=== PATIENT | female | born 1935 | race Caucasian/White ===

== ENCOUNTER 2018-08-30 12:53 | Inpatient (IN) ==
[2018-08-30] MEDS ORDERED: Ondansetron ODT 4 MG TAB.RAPDIS SL ONE (12:58)
--- NOTE | 2018-08-30 12:58 | Emergency Department Note ---
Disposition Clinical Impression: Pyelonephritis, Generalized weakness Disposition: Admitted As Inpatient Condition: Fair Referrals: NONE,PCP [Non-Partnered Physician] - Forms: ED Satisfaction Letter, Work/School Release Abdominal Pain HPI - General Chief Complaint: ED General Medical Stated Complaint: abd discomfort, flank pain Time Seen by Provider: 08/30/18 12:56 Source: patient, family, EMS Mode of arrival: EMS Limitations: age Nursing Notes Reviewed: Yes Vital Signs Reviewed: Yes - History of Present Illness HPI Narrative: Relates that she has been having some pain in her right lower back towards her right lower quadrant. Per family some of this started yesterday but has been worse today. She has had nausea with some decreased oral intake. She denies vomiting. She does report some urinary frequency and burning and was diagnosed as a UTI a week ago. Per family she has had some recurrent UTIs. She denies any diarrhea nor any bloody or black stools. She indicates she passes stool a day or 2 ago. She questions some occasional constipation. She has had some cough congestion without dyspnea. She states this has been going on for 2-3 d ays. She denies rash or joint pains. She has no known ill exposures. Family reported to EMS a temperature at home of 102. EMS did establish an IV and they transported her in for evaluation. Pt Subjective Complaint: abdominal pain, flank pain Onset (ago): day(s) (1) Consistency: constant Location: R flank Pain Severity: moderate Quality: cannot describe Radiation: RLQ Migration to: no migration Improves with: nothing Worsens with: nothing Context: recent antibiotic use Associated symptoms: Reports: nausea, fever, chills, constipation, dysuria. Denies: vomiting, diarrhea, hematemesis, hematochezia, melena, hematuria, anorexia, syncope - Related Data Home Medications Medication Instructions Recorded Confirmed Albuterol Neb [Proventil Neb] 2.5 mg IH PRN PRN 08/30/18 08/30/18 Albuterol Sulfate [Proair Hfa] 90 mcg IH BID 08/30/18 08/30/18 Alendronate Sodium 70 mg PO QWEEK 08/30/18 08/30/18 Amlodipine Besylate 5 mg PO DAILY 08/30/18 08/30/18 Armodafinil [Nuvigil] 250 mg PO BID 08/30/18 08/30/18 Aspirin [Lo-Dose Aspirin EC] 81 mg PO DAILY 08/30/18 08/30/18 Donepezil HCl [Aricept] 10 mg PO DAILY 08/30/18 08/30/18 FLUoxetine HCl [Sarafem] 30 mg PO DAILY 08/30/18 08/30/18 Famotidine [Heartburn Prevention] 20 mg PO DAILY 08/30/18 08/30/18 Ferrous Sulfate [Iron] 325 mg PO Q48H 08/30/18 08/30/18 Fluticasone/Salmeterol [Advair 1 each IH BID 08/30/18 08/30/18 500-50 Diskus] Gabapentin [Neurontin] 100 mg PO DAILY 08/30/18 08/30/18 Gemfibrozil [Lopid] 600 mg PO BIDWM 08/30/18 08/30/18 Lisinopril [Zestril] 40 mg PO DAILY 08/30/18 08/30/18 Ondansetron HCl [Zofran] 4 mg PO Q8HR PRN 08/30/18 08/30/18 Oxybutynin [Ditropan] 10 mg PO DAILY 08/30/18 08/30/18 Vit C/E/Zn/Coppr/Lutein/Zeaxan 1 each PO DAILY 08/30/18 08/30/18 [Preservision Areds 2 Softgel] Allergies Allergy/AdvReac Type Severity Reaction Status Date / Time methenamine [From Hiprex] Allergy Hives Verified 08/30/18 13:11 monosodium glutamate Allergy Anaphylaxis Verified 08/30/18 13:11 moxifloxacin [From Avelox] Allergy Anaphylaxis Verified 07/26/18 02:37 naproxen [From Naprosyn] Allergy Rash Verified 07/26/18 02:37 clarithromycin [From Biaxin] AdvReac Nausea Verified 07/26/18 02:37 pantoprazole [From Protonix] AdvReac Nausea Verified 07/26/18 02:37 All systems ED: reviewed and negative except as stated. Abdominal Pain PMH - Past Medical History Medical history: Reports: asthma, atrial fibrillation, cancer (Breasts today and renal), COPD, diabetes ([id number]), hypertension Female Surgical History: Reports: Adenoidectomy, cancer surgery (Breast and renal), cholecystectomy, hysterectomy, other (Nephrectomy) - Social History Smoking status: Never smoker Alcohol use: Reports: rarely Drug use: Reports: none Physical Exam - General Limitations: age General appearance: alert, in no apparent distress - Head Head exam: atraumatic, normocephalic, normal inspection - Eye Eye exam: Present: normal appearance, PERRL, EOMI. Absent: conjunctival injection - ENT ENT exam: normal exam, normal oropharynx, mucous membranes moist - Neck Neck exam: Present: normal inspection, full ROM, trachea midline - Chest Chest inspection: Present: normal inspection, symmetric chest wall rise - Respiratory Respiratory exam: Present: normal lung sounds bilaterally. Absent: respiratory distress, wheezes, prolonged expiratory phase - Cardiovascular Cardiovascular exam: Present: regular rate, normal rhythm, normal heart sounds - Abdominal Exam Abdominal exam: Present: soft, Non-Tender, normal bowel sounds, other (Patient reports some vague pain across the right lateral and lower abdomen.). Absent: tenderness, distention, guarding, rebound, rigidity, psoas sign, obturator sign, heel tap sign, Muro's sign, pulsatile mass, hernia - Extremities Exam Extremities exam: Present: normal inspection, full ROM, normal capillary refill. Absent: tenderness, pedal edema - Expanded Lower Extremity Exam Neurovascular/Tendon exam: Present: normal capillary refill Gait: not tested/not observed - Back Exam Back exam: Present: normal inspection, full ROM. Absent: tenderness - Neurological Exam Neurological exam: Present: alert. Absent: motor sensory deficit - Psychiatric Psychiatric exam: Present: normal affect, normal mood. Absent: agitated, anxious - Skin Skin exam: Present: warm, dry, intact, normal color. Absent: rash, diaphoresis, pallor Course Course Narrative: 1445: Care is discussed with the patient and family. She has a pyelonephritis with a singular kidney. She is mildly prerenal with a mildly elevated white count and generalized malaise. I feel be most appropriate to have her in for observation and continued hydration with IV antibiotics. She has been written to receive IV Rocephin. Care is discussed with Dr. Boss and verbal orders have been obtained for her admission. Vital Signs Temperature 100.9 F H 08/30/18 12:56 Pulse Rate 73 08/30/18 12:56 Respiratory Rate 17 08/30/18 12:56 Blood Pressure 161/54 08/30/18 12:56 O2 Sat by Pulse Oximetry 92 08/30/18 12:56 Temperature 100.9 F H 08/30/18 12:56 Pulse Rate 82 08/30/18 14:33 Respiratory Rate 18 08/30/18 14:33 Blood Pressure 155/73 08/30/18 14:33 O2 Sat by Pulse Oximetry 90 08/30/18 14:33 Oxygen Delivery Oxygen Delivery Room Air Abdominal Pain - Differential Diagnosis Differential Diagnosis: Likely: abdominal pain non-specific, acute appendicitis, calculus of kidney, constipation, diverticulitis, small bowel obstruction, other (Pyelonephritis) - Medical Records Medical records reviewed: Yes I reviewed the patient's medical records. Patient was seen at [facility] emergency department on 07/26/2018. This was for generalized weakness. She had a urinary tract infection with Escherichia coli and was treated successfully with Keflex. - Lab Data Lab results reviewed: Yes I reviewed the patient's lab results. Result diagrams: 08/30/18 13:41 08/30/18 13:41 Lab Results 08/30/18 08/30/18 08/30/18 Range/Units 13:41 13:41 13:41 WBC 13.6 H (4.3-11.1) K/mcL RBC 3.61 L (3.82-4.97) M/mcL Hgb 10.7 L (11.5-15.4) g/dL Hct 33.8 L (35.3-44.9) % MCV 93.6 (83.0-100.0) fL MCH 29.6 (28.0-33.3) pg MCHC 31.7 (31.6-35.5) g/dL RDW 16.2 H (11.5-14.5) % Plt Count 233 (140-400) K/mcL MPV 10.0 (9.4-12.4) fL Immature Gran % 0.6 (0-4) % Seg Neutrophils % 92.4 % Lymphocytes % 3.6 % Monocytes % 3.2 % Eosinophils % 0.0 % Basophils % 0.2 % Neutrophils # 12.6 H (1.6-8.9) K/mcL Lymphocytes # 0.5 L (0.6-4.6) K/mcL Monocytes # 0.4 (0.0-1.3) K/mcL Eosinophils # 0.0 (0.0-0.6) K/mcL Basophils # 0.0 (0.0-0.2) K/mcL Sodium 138 (136-145) mEq/L Potassium 4.4 (3.5-5.1) mEq/L Chloride 102 (98-107) mEq/L Carbon Dioxide 28 (23-29) mEq/L BUN 26 H (8-23) mg/dL Creatinine 0.96 (0.60-1.20) mg/dL Est GFR ( Amer) > 60 (> 60) Est GFR (Non-Af Amer) 55 L (> 60) BUN/Creatinine Ratio 27 H (6-26) Glucose 102 (70-105) mg/dL Calculated Osmolality 291 (280-300) Lactic Acid 1.1 (0.5-2.2) mmol/L Calcium 9.1 (8.6-10.3) mg/dL Urine Color (Yellow) Urine Clarity (Clear) Urine pH (5.0-8.0) pH Units Ur Specific [place] (1.010-1.025) Urine Protein (Neg-Trace) mg/dL Urine Glucose (UA) (Normal) mg/dL Urine Ketones (Negative) mg/dL Urine Blood (Negative) Urine Nitrite (Negative) Urine Bilirubin (Negative) Urine Urobilinogen (Normal) mg/dL Ur Leukocyte Esterase (Negative) Urine Microscopic RBC (0-3) per hpf Urine Microscopic WBC (0-3) per hpf Ur Squamous Epith Cells (None-Few) per lpf Urine Bacteria (None-Few) per hpf Ur Culture Indicated? (NO) 08/30/18 Range/Units 14:29 WBC (4.3-11.1) K/mcL RBC (3.82-4.97) M/mcL Hgb (11.5-15.4) g/dL Hct (35.3-44.9) % MCV (83.0-100.0) fL MCH (28.0-33.3) pg MCHC (31.6-35.5) g/dL RDW (11.5-14.5) % Plt Count (140-400) K/mcL MPV (9.4-12.4) fL Immature Gran % (0-4) % Seg Neutrophils % % Lymphocytes % % Monocytes % % Eosinophils % % Basophils % % Neutrophils # (1.6-8.9) K/mcL Lymphocytes # (0.6-4.6) K/mcL Monocytes # (0.0-1.3) K/mcL Eosinophils # (0.0-0.6) K/mcL Basophils # (0.0-0.2) K/mcL Sodium (136-145) mEq/L Potassium (3.5-5.1) mEq/L Chloride (98-107) mEq/L Carbon Dioxide (23-29) mEq/L BUN (8-23) mg/dL Creatinine (0.60-1.20) mg/dL Est GFR ( Amer) (> 60) Est GFR (Non-Af Amer) (> 60) BUN/Creatinine Ratio (6-26) Glucose (70-105) mg/dL Calculated Osmolality (280-300) Lactic Acid (0.5-2.2) mmol/L Calcium (8.6-10.3) mg/dL Urine Color Yellow (Yellow) Urine Clarity Cloudy A (Clear) Urine pH 6.0 (5.0-8.0) pH Units Ur Specific [place] 1.015 (1.010-1.025) Urine Protein 100 H (Neg-Trace) mg/dL Urine Glucose (UA) Normal (Normal) mg/dL Urine Ketones Negative (Negative) mg/dL Urine Blood Large H (Negative) Urine Nitrite Positive A (Negative) Urine Bilirubin Negative (Negative) Urine Urobilinogen Normal (Normal) mg/dL Ur Leukocyte Esterase Small H (Negative) Urine Microscopic RBC TNTC H (0-3) per hpf Urine Microscopic WBC 30-50 H (0-3) per hpf Ur Squamous Epith Cells None Seen (None-Few) per lpf Urine Bacteria Many H (None-Few) per hpf Ur Culture Indicated? YES A (NO) - Radiology Data Radiology results reviewed: Yes I reviewed the patient's radiology results. Single view chest x-ray is performed. This does not demonstrate evidence for infiltrate, effusion, pneumothorax, foreign body or heart failure. Patient has some diffuse increased interstitial markings suggestive of pulmonary fibrosis. The cardiac silhouette is mildly enlarged. I do not see abnormality to the oss eous structures of the chest. This is on my interpretation. CT is performed of the abdomen and pelvis without IV or oral contrast. This demonstrates the basal lungs to have a little atelectasis in the left base. The liver, spleen and pancreas appear normal. Left kidney is surgically absent. The right demonstrate some perinephric stranding for which a pyelonephritis is a concern. I do not see evidence for ureteral obstruction or stone. The bowel is without inflammatory change, obstruction or perforation. The aorta is normal in caliber. No other acute abnormality is seen. This is on my interpretation. Impressions Abdomen/Pelvis CT 08/30/18 12:57 IMPRESSION: Mild right hydronephrosis and hydroureter with mild right perinephric edema. No obstructive calculi identified. This may be due to recently passed ureteral calculus. Status post cholecystectomy, left nephrectomy, hysterectomy. Colonic diverticulosis without acute inflammatory changes. Small hiatal hernia. D/ / 08/30/2018 14:09:13 Phi Velazquez MD / yana Interpreting Provider: Phi Velazquez MD Chest X-Ray 08/30/18 12:57 IMPRESSION: Mild patchy opacities in the lungs, new from the prior study and possibly representing atelectasis or pneumonia. D/ / Cedric Strong MD / Cedric Strong MD Interpreting Provider: Cedric Strong MD
[2018-08-30] MEDS ORDERED: 0.9 % Sodium Chloride 1,000 ML IVC SCH ×2 (13:00→15:11)
[2018-08-30 13:48] LABS: Basophils % 0.2 %; Hematocrit 33.8 % (35.3-44.9); Hemoglobin 10.7 g/dL (11.5-15.4); Immature Granulocytes % 0.6 % (0-4); Lymphocytes # 0.5 K/mcL (0.6-4.6); Lymphocytes % 3.6 %; Mean Corpuscular HGB Conc 31.7 g/dL (31.6-35.5); Mean Corpuscular Hemoglobin 29.6 pg (28.0-33.3); Mean Corpuscular Volume 93.6 fL (83.0-100.0); Monocytes # 0.4 K/mcL (0.0-1.3); Monocytes % 3.2 %; Neutrophils # 12.6 K/mcL (1.6-8.9); Platelet Count 233 K/mcL (140-400); Red Blood Count 3.61 M/mcL (3.82-4.97); Red Cell Distribution Width 16.2 % (11.5-14.5); Segmented Neutrophils % 92.4 %
[2018-08-30 14:07] LABS: BUN/Creatinine Ratio 27 (6-26); Blood Urea Nitrogen 26 mg/dL (8-23); Calcium 9.1 mg/dL (8.6-10.3); Carbon Dioxide 28 mEq/L (23-29); Chloride 102 mEq/L (98-107); Glucose 102 mg/dL (70-105); Osmolality,Calculated 291 (280-300); Potassium 4.4 mEq/L (3.5-5.1); Sodium 138 mEq/L (136-145); eGFR For Non-African Americans 55 (> 60)
[2018-08-30 14:36] LABS: Bilirubin,Urine Negative (Negative); Blood,Urine Large (Negative); Clarity,Urine Cloudy (Clear); Color,Urine Yellow (Yellow); Glucose,Urine (UA) Normal (Normal); Ketones,Urine Negative (Negative); Leukocyte Esterase,Urine Small (Negative); Nitrite,Urine Positive (Negative); Protein,Urine 100 mg/dL (Neg-Trace); Specific Gravity,Urine 1.015 (1.010-1.025); Urobilinogen,Urine Normal (Normal)
[2018-08-30 14:43] LABS: Bacteria,Urine Many per hpf (None-Few); RBC,Urine TNTC per hpf (0-3); Squamous Epithelial Cell,Urine None Seen per lpf (None-Few); WBC,Urine 30-50 per hpf (0-3)
[2018-08-30] MEDS ORDERED: cefTRIAXone 2,000 MG in 0.9 % Sodium Chloride Mini Bag 100 ML IVPB ONE ×3 (14:44→16:00)
[2018-08-30] MEDS ORDERED: cefTRIAXone 2,000 MG in Water for inj. (sterile) 20 ML 20 ML IVPB SCH (15:00)
[2018-08-30] MEDS ORDERED: Albuterol 2.5 MG/3 ML NEBULIZER IH PRN (15:11)
[2018-08-30] MEDS ORDERED: Naloxone 0.4 MG/ML INJ IVP PRN (15:11)
--- NOTE | 2018-08-30 18:51 | Internal Med History&Physical ---
Date of Encounter: 08/30/18 Time of Encounter: 18:20 Assessment and Plan (1) Pyelonephritis Current visit: Yes Status: Acute She was given Rocephin in emergency room. 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 (2) Pneumonia Current visit: Yes Status: Acute She will receive IV Zosyn and doxycycline with lactobacillus. Qualifiers: Pneumonia type: due to unspecified organism Laterality: bilateral Lung location: unspecified part of lung Qualified Code(s): J18.9 - Pneumonia, unspecified organism (3) Hypertension Current visit: Yes Status: Chronic Continue lisinopril and Norvasc. Qualifiers: Hypertension type: essential hypertension Qualified Code(s): I10 - Essential (primary) hypertension (4) Anemia Current visit: Yes Status: Acute Anemia testing will be done in a.m. Qualifiers: Anemia type: unspecified type Qualified Code(s): D64.9 - Anemia, unspecified (5) DM type 2 (diabetes mellitus, type 2) Current visit: Yes Status: Acute Will check hemoglobin A1c in a.m. Qualifiers: Diabetes mellitus residential insulin use: without residential use Diabetes mellitus complication status: without complication Qualified Code(s): E11.9 - Type 2 diabetes mellitus without complications Internal Medicine - H&P: HPI Chief complaint: Fever and lethargy Admitted From: Emergency Dept Plans for Post Hospital Care: Home History of present illness: Ms. Hamilton is a 82 year old female came to emergency room after family reported fever 102 F at home with lethargy. She had no vomiting or diarrhea. There was no significant cough. She was evaluated in emergency room and was felt to have acute pyelonephritis. Chest x-ray showed possible bilateral pneumonia. She was admitted to [facility] floor for ongoing care needs. She is lethargic but awakens and answers a few questions. Most of the history is obtained from her daughter. Her history s significant for left nephrectomy 2007 for renal cell cancer. The nephrectomy was presumably curative. She has had numerous urinary tract infections but no documented kidney stones. She has OAB and is on Ditropan. Past Med Surg Social Fam HX - Past Medical History Medical history: asthma, atrial fibrillation, cancer, COPD, diabetes, hypertension Additional medical history: Frequent UTI. macular degeneration. osteopenia Psychiatric history: anxiety, depression - Past Surgical History Additional surgical history: nephrectomy left side. mastectomy. britany cystectomy - Social History Smoking Status: Never smoker Smokeless Tobacco Status: No Alcohol use: rarely Drug use: none Internal Medicine - H&P: Meds Albuterol Neb [Proventil Neb] 2.5 mg IH PRN PRN 08/30/18 [History] Albuterol Sulfate [Proair Hfa] 90 mcg IH BID 08/30/18 [History] Alendronate Sodium 70 mg PO QWEEK 08/30/18 [History] Amlodipine Besylate 5 mg PO DAILY 08/30/18 [History] Armodafinil [Nuvigil] 250 mg PO BID 08/30/18 [History] Aspirin [Lo-Dose Aspirin EC] 81 mg PO DAILY 08/30/18 [History] Donepezil HCl [Aricept] 10 mg PO DAILY 08/30/18 [History] FLUoxetine HCl [Sarafem] 30 mg PO DAILY 08/30/18 [History] Famotidine [Heartburn Prevention] 20 mg PO DAILY 08/30/18 [History] Ferrous Sulfate [Iron] 325 mg PO Q48H 08/30/18 [History] Fluticasone/Salmeterol [Advair 500-50 Diskus] 1 each IH BID 08/30/18 [History] Gabapentin [Neurontin] 100 mg PO DAILY 08/30/18 [History] Gemfibrozil [Lopid] 600 mg PO BIDWM 08/30/18 [History] Lisinopril [Zestril] 40 mg PO DAILY 08/30/18 [History] Ondansetron HCl [Zofran] 4 mg PO Q8HR PRN 08/30/18 [History] Oxybutynin [Ditropan] 10 mg PO DAILY 08/30/18 [History] Vit C/E/Zn/Coppr/Lutein/Zeaxan [Preservision Areds 2 Softgel] 1 each PO DAILY 08/30/18 [History] Allergy/AdvReac Type Severity Reaction Status Date / Time methenamine [From Hiprex] Allergy Hives Verified 08/30/18 13:11 monosodium glutamate Allergy Anaphylaxis Verified 08/30/18 13:11 moxifloxacin [From Avelox] Allergy Anaphylaxis Verified 07/26/18 02:37 naproxen [From Naprosyn] Allergy Rash Verified 07/26/18 02:37 clarithromycin [From Biaxin] AdvReac Nausea Verified 07/26/18 02:37 pantoprazole [From Protonix] AdvReac Nausea Verified 07/26/18 02:37 All Systems PM: A 10-system review of systems was performed and is negative for pertinent findings except as documented above in the HPI. Review of systems: Gen.: Her weight has decreased approximately 10 pounds in the past 6 months Cardiovascular: She has history of hypertension and paroxysmal atrial fibrillation. There is no history of CO or heart failure. Her daughter thinks she had a remote DVT but no known pulmonary embolus. Respiratory: She smoked from approximately age [age] up to 2 packs per day. She has a diagnosis of COPD but does not use home oxygen. She has been diagnosed with LUCILLE but does not use CPAP/BiPAP GI: She has no known disorders of liver gallbladder or exocrine pancreas : As per history of present illness Neurologic: She has narcolepsy and dementia. No history of large distribution strokes or seizures. Endocrine: She was diagnosed with DM 2 approximately 1999. She has hyperlipidemia but no known thyroid disease Hematology/oncology: She had renal cell cancer as per history of present illness. She had left breast cancer with lumpectomy followed by XRT in 2007 and is presumed cancer free. She denies known internal malignancies otherwise. She was unaware there was anemia on labs in emergency room. She has been prescribed ferrous sulfate in the past. Psychiatric: She has depression but no significant anxiety other mental health issues [place] skeletal: She has DJD and osteoporosis. She had a toe amputation. She has had left wrist fracture and pelvic fracture remotely. - Constitutional Vitals: Temp Pulse Resp BP Pulse Ox 101.2 F H 96 18 132/62 92 08/30/18 16:17 08/30/18 16:17 08/30/18 16:17 08/30/18 16:17 08/30/18 16:17 Exam: Gen.: She is a well-developed well-nourished female lying in bed who appears in no significant distress HEENT: Head is atraumatic and normal cephalic. Eyes: EOMI. There is no scleral icterus. Mouth: Mucosa is moist. Neck: Supple and nontender. There is no thyromegaly or adenopathy noted. Heart: Regular without murmurs gallops or ectopics Lungs: No wheezes or crackles are heard. Abdomen: Soft and nontender. No masses or guarding are noted. Extremities: There is no cyanosis edema or clubbing noted. Dorsalis pedis and posttibial pulses are trace palpable bilaterally. She has DJD changes of her hands. Neurologic: Mental status: She is lethargic and fell asleep numerous times during the examination. She answers questions appropriately upon awakening. Cranial nerves: Smile is symmetric. Forehead wrinkles bilaterally. Tongue protrudes midline. EOMI. Motor: There is no pronator drift. Cerebellar: Finger to nose is intact bilaterally. Skin: Warm and dry Internal Med - H&P Results - Labs CBC & Chem 7: 08/30/18 13:41 08/30/18 13:41 Labs: Short CBC 08/30/18 Range/Units 13:41 WBC 13.6 H (4.3-11.1) K/mcL Hgb 10.7 L (11.5-15.4) g/dL Hct 33.8 L (35.3-44.9) % Plt Count 233 (140-400) K/mcL Neutrophils # 12.6 H (1.6-8.9) K/mcL BMP 08/30/18 13:41 Sodium 138 Potassium 4.4 Chloride 102 Carbon Dioxide 28 BUN 26 H Creatinine 0.96 Glucose 102 Calcium 9.1 Urine 08/30/18 Range/Units 14:29 Urine Color Yellow (Yellow) Urine Clarity Cloudy A (Clear) Urine pH 6.0 (5.0-8.0) pH Units Ur Specific [place] 1.015 (1.010-1.025) Urine Protein 100 H (Neg-Trace) mg/dL Urine Glucose (UA) Normal (Normal) mg/dL - Impressions ITS Impressions Abdomen/Pelvis CT 08/30/18 12:57 IMPRESSION: Mild right hydronephrosis and hydroureter with mild right perinephric edema. No obstructive calculi identified. This may be due to recently passed ureteral calculus. Status post cholecystectomy, left nephrectomy, hysterectomy. Colonic diverticulosis without acute inflammatory changes. Small hiatal hernia. D/ / 08/30/2018 14:09:13 Phi Velazquez MD / jorge castro Interpreting Provider: Phi Velazquez MD Chest X-Ray 08/30/18 12:57 IMPRESSION: Mild patchy opacities in the lungs, new from the prior study and possibly representing atelectasis or pneumonia. D/ / Cedric Strong MD / Cedric Strong MD Interpreting Provider: Cedric Strong MD
[2018-08-30] MEDS: Doxycycline 100 MG in 0.9 % Sodium Chloride Mini Bag 100 ML IVPB SCH (20:37)
[2018-08-30] MEDS: Lactobacillus 1 EACH CAP.SPRINK PO SCH (20:37)
[2018-08-30] MEDS: NUVIGIL 250 MG PO SCH (20:51)
[2018-08-30] MEDS: Piperacillin/Tazobactam 3.375 GM in 0.9 % Sodium Chloride Mini Bag 100 ML IVPB SCH (23:55)
[2018-08-31 04:31] LABS: Basophils % 0.2 %; Eosinophils % 0.1 %; Hematocrit 29.7 % (35.3-44.9); Hemoglobin 9.3 g/dL (11.5-15.4); Immature Granulocytes % 0.6 % (0-4); Lymphocytes # 0.9 K/mcL (0.6-4.6); Lymphocytes % 7.5 %; Mean Corpuscular HGB Conc 31.3 g/dL (31.6-35.5); Mean Corpuscular Hemoglobin 29.3 pg (28.0-33.3); Mean Corpuscular Volume 93.7 fL (83.0-100.0); Mean Platelet Volume 10.7 fL (9.4-12.4); Monocytes # 0.7 K/mcL (0.0-1.3); Monocytes % 5.7 %; Neutrophils # 10.3 K/mcL (1.6-8.9); Platelet Count 189 K/mcL (140-400); Red Blood Count 3.17 M/mcL (3.82-4.97); Red Cell Distribution Width 16.4 % (11.5-14.5); Segmented Neutrophils % 85.9 %
[2018-08-31 04:51] LABS: Alanine Aminotransferase 5 Units/L (7-52); Albumin 2.9 g/dL (3.5-5.7); Albumin/Globulin Ratio 0.9 (1.1-2.2); Alkaline Phosphatase 101 Units/L (34-104); Aspartate Amino Transferase 18 Units/L (13-39); BUN/Creatinine Ratio 27 (6-26); Bilirubin,Total 0.3 mg/dL (0.3-1.0); Blood Urea Nitrogen 31 mg/dL (8-23); Calcium 8.4 mg/dL (8.6-10.3); Carbon Dioxide 25 mEq/L (23-29); Chloride 103 mEq/L (98-107); Globulin 3.3 g/dL (2.4-3.5); Glucose 107 mg/dL (70-105); Osmolality,Calculated 293 (280-300); Potassium 3.6 mEq/L (3.5-5.1); Sodium 138 mEq/L (136-145); Total Protein 6.2 g/dL (6.4-8.9); eGFR For Non-African Americans 45 (> 60)
[2018-08-31 05:02] LABS: Thyroid Stimulating Hormone 0.017 mcIU/mL (0.340-5.600)
[2018-08-31] MEDS: Doxycycline 100 MG in 0.9 % Sodium Chloride Mini Bag 100 ML IVPB SCH ×2 (06:19→21:25)
[2018-08-31] MEDS: Piperacillin/Tazobactam 3.375 GM in 0.9 % Sodium Chloride Mini Bag 100 ML IVPB SCH ×2 (08:05→16:31)
[2018-08-31] MEDS: Aspirin Enteric Coated 81 MG Tablet PO SCH (08:09)
[2018-08-31] MEDS: amLODIPine 5 MG TABLET PO SCH (08:09)
[2018-08-31] MEDS: Lisinopril 20 MG TABLET PO SCH (08:10)
[2018-08-31] MEDS: Famotidine 20 MG TABLET PO SCH (08:10)
[2018-08-31] MEDS: FLUoxetine HCl 10 MG CAPSULE PO SCH (08:10)
[2018-08-31] MEDS: Gabapentin 100 MG CAPSULE PO SCH (08:10)
[2018-08-31] MEDS: Lactobacillus 1 EACH CAP.SPRINK PO SCH ×2 (08:10→21:24)
[2018-08-31] MEDS: NUVIGIL 250 MG PO SCH (08:11)
[2018-08-31 09:00] LABS: Estimated Average Glucose 114 mg/dl; Hemoglobin A1C 5.6 %
[2018-08-31 09:18] LABS: Iron < 10 mcg/dL (50-170); Transferrin 167 mg/dL (203-362)
[2018-08-31] MEDS: Ondansetron ODT 4 MG TAB.RAPDIS PO PRN (09:21)
[2018-08-31 09:29] LABS: Folate 16.4 ng/mL (3.0-16.0)
[2018-08-31 09:34] LABS: Ferritin 193 ng/mL (10-120)
[2018-08-31] MEDS ORDERED: NUVIGIL 250 MG PO SCH (10:45)
--- NOTE | 2018-08-31 12:54 | Internal Med Progress Note ---
Date of Encounter: 08/31/18 Time of Encounter: 12:45 - Assessment and plan (1) Pyelonephritis Current Visit: Yes Status: Acute Assessment and plan: August 31. Continue Zosyn and doxycycline with lactobacillus. Urine culture report pending. (2) Pneumonia Current Visit: Yes Status: Acute Assessment and plan: August 31. Continue Zosyn and doxycycline with lactobacillus. Qualifiers: Pneumonia type: due to unspecified organism Laterality: bilateral Lung lo cation: unspecified part of lung Qualified Code(s): J18.9 - Pneumonia, unspecified organism (3) Hypertension Current Visit: Yes Status: Chronic Assessment and plan: August 31. Continue lisinopril and Norvasc Qualifiers: Hypertension type: essential hypertension Qualified Code(s): I10 - Essential (primary) hypertension (4) Anemia Current Visit: Yes Status: Acute Assessment and plan: August 31. Anemia testing showed iron < 10, transferrin 167, ferritin 193, B12 200, and folate 16.4. She will start ferrous sulfate with ascorbic acid in a.m. She will receive a B12 injection today. Qualifiers: Anemia type: unspecified type Qualified Code(s): D64.9 - Anemia, unspecified (5) DM type 2 (diabetes mellitus, type 2) Current Visit: Yes Status: Acute Assessment and plan: August 31. Hemoglobin A1c was satisfactory at 5.6%. Qualifiers: Diabetes mellitus terminal superintendent insulin use: without detention use Diabetes mellitus complication status: without complication Qualified Code(s): E11.9 - Type 2 diabetes mellitus without complications (6) Low TSH level Current Visit: Yes Status: Acute Assessment and plan: August 31. TSH was suppressed at 0.017. Check T4 and T3 in a.m. and recheck TSH. (7) Lung nodules Current Visit: Yes Status: Acute Assessment and plan: August 31. Chest CT showed multiple noncalcified subcentimeter nodules bilaterally with precarinal adenopathy. I told her it would be reasonable to have a repeat chest CT in a few weeks to see if nodules have resolved or if further workup should be done. - Subjective Interval history: August 31. She has no new complaints. - Constitutional Vitals: Temp Pulse Resp BP Pulse Ox 97.9 F 76 16 122/64 94 08/31/18 11:18 08/31/18 11:18 08/31/18 11:18 08/31/18 11:18 08/31/18 11:18 Exam: She is resting comfortably in bed. She is more awake and alert today. I reviewed her medications, lab results, and CT report. Internal Medicine: Result - Labs CBC & Chem 7: 08/31/18 03:58 08/31/18 03:58 Labs: Short CBC 08/30/18 08/31/18 Range/Units 13:41 03:58 WBC 13.6 H 12.0 H (4.3-11.1) K/mcL Hgb 10.7 L 9.3 L (11.5-15.4) g/dL Hct 33.8 L 29.7 L (35.3-44.9) % Plt Count 233 189 (140-400) K/mcL Neutrophils # 12.6 H 10.3 H (1.6-8.9) K/mcL BMP 08/30/18 08/31/18 13:41 03:58 Sodium 138 138 Potassium 4.4 3.6 Chloride 102 103 Carbon Dioxide 28 25 BUN 26 H 31 H Creatinine 0.96 1.14 Glucose 102 107 H Calcium 9.1 8.4 L Liver Function 08/31/18 Range/Units 03:58 Total Bilirubin 0.3 (0.3-1.0) mg/dL AST 18 (13-39) Units/L ALT 5 L (7-52) Units/L Alkaline Phosphatase 101 (34-104) Units/L Albumin 2.9 L (3.5-5.7) g/dL Urine 08/30/18 Range/Units 14:29 Urine Color Yellow (Yellow) Urine Clarity Cloudy A (Clear) Urine pH 6.0 (5.0-8.0) pH Units Ur Specific [place] 1.015 (1.010-1.025) Urine Protein 100 H (Neg-Trace) mg/dL Urine Glucose (UA) Normal (Normal) mg/dL - Impressions Impressions Abdomen/Pelvis CT 08/30/18 12:57 IMPRESSION: Mild right hydronephrosis and hydroureter with mild right perinephric edema. No obstructive calculi identified. This may be due to recently passed ureteral calculus. Status post cholecystectomy, left nephrectomy, hysterectomy. Colonic diverticulosis without acute inflammatory changes. Small hiatal hernia. D/ / 08/30/2018 14:09:13 Phi Velazquez MD / yana Interpreting Provider: Phi Velazquez MD Chest X-Ray 08/30/18 12:57 IMPRESSION: Mild patchy opacities in the lungs, new from the prior study and possibly representing atelectasis or pneumonia. D/ / Cedric Strong MD / Cedric Strong MD Interpreting Provider: Cedric Strong MD Chest CT 08/30/18 18:46 IMPRESSION: Multiple noncalcified subcentimeter pulmonary nodules are seen bilaterally. Precarinal adenopathy is also seen. Leading differential considerations include infectious/inflammatory nodules, noncalcified granulomas, or developing metastatic disease. Trace right pleural effusion. Atherosclerosis, including coronary artery calcification. D/ / El Ruby MD / El Ruby MD Interpreting Provider: El Ruby MD Consult Discharge Plan - Plan Referrals: Melva De Souza MD [Primary Care Provider] - 1 week
[2018-08-31] MEDS ORDERED: Cyanocobalamin (B-12) 1,000 MCG/ML VIAL IM ONE (12:57)
[2018-08-31] MEDS ORDERED: cefTRIAXone 2,000 MG in Water for inj. (sterile) 20 ML 20 ML IVPB SCH (15:00)
[2018-09-01] MEDS: Piperacillin/Tazobactam 3.375 GM in 0.9 % Sodium Chloride Mini Bag 100 ML IVPB SCH ×3 (01:04→18:26)
[2018-09-01 05:37] LABS: Basophils % 0.2 %; Eosinophils % 0.2 %; Hematocrit 25.4 % (35.3-44.9); Hemoglobin 8.2 g/dL (11.5-15.4); Immature Granulocytes % 0.4 % (0-4); Lymphocytes # 0.8 K/mcL (0.6-4.6); Lymphocytes % 10.3 %; Mean Corpuscular HGB Conc 32.3 g/dL (31.6-35.5); Mean Corpuscular Hemoglobin 29.8 pg (28.0-33.3); Mean Corpuscular Volume 92.4 fL (83.0-100.0); Mean Platelet Volume 10.7 fL (9.4-12.4); Monocytes # 0.4 K/mcL (0.0-1.3); Monocytes % 4.9 %; Neutrophils # 6.7 K/mcL (1.6-8.9); Platelet Count 141 K/mcL (140-400); Red Blood Count 2.75 M/mcL (3.82-4.97); Red Cell Distribution Width 16.4 % (11.5-14.5)
[2018-09-01 06:03] LABS: Calcium 8.4 mg/dL (8.6-10.3); Potassium 3.3 mEq/L (3.5-5.1)
[2018-09-01] MEDS: Ascorbic Acid 500 MG TABLET PO SCH (06:04)
[2018-09-01] MEDS: Doxycycline 100 MG in 0.9 % Sodium Chloride Mini Bag 100 ML IVPB SCH (06:05)
[2018-09-01 06:16] LABS: Thyroid Stimulating Hormone 0.027 mcIU/mL (0.340-5.600)
[2018-09-01] MEDS: NUVIGIL 250 MG PO SCH (08:27)
[2018-09-01] MEDS: Ondansetron ODT 4 MG TAB.RAPDIS PO PRN (08:27)
[2018-09-01] MEDS: Lisinopril 20 MG TABLET PO SCH (08:28)
[2018-09-01] MEDS: FLUoxetine HCl 10 MG CAPSULE PO SCH (08:28)
[2018-09-01] MEDS: amLODIPine 5 MG TABLET PO SCH (08:28)
[2018-09-01] MEDS: Gabapentin 100 MG CAPSULE PO SCH (08:28)
[2018-09-01] MEDS: Lactobacillus 1 EACH CAP.SPRINK PO SCH ×2 (08:28→20:25)
[2018-09-01] MEDS: Famotidine 20 MG TABLET PO SCH (08:28)
[2018-09-01] MEDS: Aspirin Enteric Coated 81 MG Tablet PO SCH (08:28)
[2018-09-01 09:06] LABS: Triiodothyronine (T3) Free 2.61 pg/mL (2.50-3.90)
--- NOTE | 2018-09-01 11:02 | Internal Med Progress Note ---
Date of Encounter: 09/01/18 Time of Encounter: 10:25 - Assessment and plan (1) Pyelonephritis Current Visit: Yes Status: Acute Assessment and plan: August 31. Continue Zosyn and doxycycline with lactobacillus. Urine culture report pending. September 01. Urine culture preliminary report shows gram-negative rods. Continue Zosyn with lactobacillus but discontinue doxycycline. (2) Pneumonia Current Visit: Yes Status: Acute Assessment and plan: August 31. Continue Zosyn and doxycycline with lactobacillus. September 01. No obvious infiltrate seen on chest CT. Multiple pulmonary nodules of uncertain etiology were identified. Continue Zosyn with lactobacillus for UTI. Qualifiers: Pneumonia type: due to unspecified organism Laterality: bilateral Lung location: unspecified part of lung Qualified Code(s): J18.9 - Pneumonia, unspecified organism (3) Hypertension Current Visit: Yes Status: Chronic Assessment and plan: August 31. Continue lisinopril and Norvasc September 01. Azotemia worsening. Discontinue lisinopril. Continue Norvasc and monitor blood pressure. Qualifiers: Hypertension type: essential hypertension Qualified Code(s): I10 - Esse ntial (primary) hypertension (4) Anemia Current Visit: Yes Status: Acute Assessment and plan: August 31. Anemia testing showed iron < 10, transferrin 167, ferritin 193, B12 200, and folate 16.4. She will start ferrous sulfate with ascorbic acid in a.m. She will receive a B12 injection today. Qualifiers: Anemia type: unspecified type Qualified Code(s): D64.9 - Anemia, unspecified (5) DM type 2 (diabetes mellitus, type 2) Current Visit: Yes Status: Acute Assessment and plan: August 31. Hemoglobin A1c was satisfactory at 5.6%. Qualifiers: Diabetes mellitus intermediate insulin use: without intermediate use Diabetes mellitus complication status: without complication Qualified Code(s): E11.9 - Type 2 diabetes mellitus without complications (6) Low TSH level Current Visit: Yes Status: Acute Assessment and plan: August 31. TSH was suppressed at 0.017. Check T4 and T3 in a.m. and recheck TSH. September 01. TSH again suppressed at 0.027. Free T4 was low at 0.52. She will have FSH, LH, and estradiol levels checked to evaluate for [id number] causi ng secondary hypothyroidism. (7) Lung nodules Current Visit: Yes Status: Acute Assessment and plan: August 31. Chest CT showed multiple noncalcified subcentimeter nodules bilaterally with precarinal adenopathy. I told her it would be reasonable to have a repeat chest CT in a few weeks to see if nodules have resolved or if further workup should be done. (8) Generalized weakness Current Visit: Yes Status: Acute Assessment and plan: September 01. She will need PT and OT evaluation and will likely benefit from swing bed stay. (9) Hypokalemia Current Visit: Yes Status: Acute Assessment and plan: September 01. Supplement potassium will be given and labs will be monitored. (10) Azotemia Current Visit: Yes Status: Acute Assessment and plan: September 01. BUN and creatinine have risen to 34 and 1.23 respectively. IV fluids will be started. Labs will be monitored - Subjective Interval history: August 31. She has no new complaints. September 01. She has no new complaints. - Constitutional Vitals: Temp Pulse Resp BP Pulse Ox 98.7 F 67 14 124/69 93 09/01/18 06:21 09/01/18 06:21 09/01/18 06:21 09/01/18 06:21 09/01/18 06:21 Exam: She is sitting in a chair at bedside and appears in no acute distress. Her affect is overall cheerful. She admits she is weak. I reviewed her medications and lab results. I discussed the chest CT report and thyroid lab test abnormali ties with her and her daughter. Internal Medicine: Result - Labs CBC & Chem 7: 09/01/18 04:54 09/01/18 04:54 Labs: Short CBC 09/01/18 Range/Units 04:54 WBC 8.0 (4.3-11.1) K/mcL Hgb 8.2 L (11.5-15.4) g/dL Hct 25.4 L (35.3-44.9) % Plt Count 141 (140-400) K/mcL Neutrophils # 6.7 (1.6-8.9) K/mcL BMP 09/01/18 04:54 Sodium 136 Potassium 3.3 L Chloride 103 Carbon Dioxide 23 BUN 34 H Creatinine 1.23 H Glucose 100 Calcium 8.4 L Consult Discharge Plan - Plan Referrals: Melva De Souza MD [Primary Care Provider] - 1 week
[2018-09-01] MEDS: 0.45 % Sodium Chloride w/KCl 20 MEQ/1,000 ML MLS IVC SCH (14:16)
[2018-09-01 16:13] LABS: Follicle Stimulating Hormone 35.49 mIU/mL
[2018-09-02] MEDS: Piperacillin/Tazobactam 3.375 GM in 0.9 % Sodium Chloride Mini Bag 100 ML IVPB SCH ×3 (03:08→18:30)
[2018-09-02] MEDS: 0.45 % Sodium Chloride w/KCl 20 MEQ/1,000 ML MLS IVC SCH ×2 (03:33→10:57)
[2018-09-02 07:20] LABS: Basophils % 0.3 %; Eosinophils # 0.1 K/mcL (0.0-0.6); Hematocrit 25.8 % (35.3-44.9); Hemoglobin 8.1 g/dL (11.5-15.4); Immature Granulocytes % 0.3 % (0-4); Lymphocytes # 0.8 K/mcL (0.6-4.6); Lymphocytes % 12.7 %; Mean Corpuscular HGB Conc 31.4 g/dL (31.6-35.5); Mean Corpuscular Hemoglobin 28.9 pg (28.0-33.3); Mean Corpuscular Volume 92.1 fL (83.0-100.0); Mean Platelet Volume 10.7 fL (9.4-12.4); Monocytes # 0.5 K/mcL (0.0-1.3); Monocytes % 7.1 %; Platelet Count 122 K/mcL (140-400); Red Cell Distribution Width 16.7 % (11.5-14.5); Segmented Neutrophils % 77.6 %
[2018-09-02 07:40] LABS: Calcium 8.3 mg/dL (8.6-10.3); Potassium 3.9 mEq/L (3.5-5.1)
[2018-09-02] MEDS: Ascorbic Acid 500 MG TABLET PO SCH (09:40)
[2018-09-02] MEDS: NUVIGIL 250 MG PO SCH (09:40)
[2018-09-02] MEDS: FLUoxetine HCl 10 MG CAPSULE PO SCH (09:41)
[2018-09-02] MEDS: Aspirin Enteric Coated 81 MG Tablet PO SCH (09:41)
[2018-09-02] MEDS: Famotidine 20 MG TABLET PO SCH (09:41)
[2018-09-02] MEDS: Cyanocobalamin (B-12) 1,000 MCG TABLET PO SCH (09:41)
[2018-09-02] MEDS: Gabapentin 100 MG CAPSULE PO SCH (09:41)
[2018-09-02] MEDS: amLODIPine 5 MG TABLET PO SCH (09:41)
[2018-09-02] MEDS: Lactobacillus 1 EACH CAP.SPRINK PO SCH ×2 (09:41→21:53)
--- NOTE | 2018-09-02 09:50 | Internal Med Progress Note ---
Date of Encounter: 09/02/18 Time of Encounter: 09:42 - Assessment and plan (1) Pyelonephritis Current Visit: Yes Status: Acute Assessment and plan: August 31. Continue Zosyn and doxycycline with lactobacillus. Urine culture report pending. September 01. Urine culture preliminary report shows gram-negative rods. Continue Zosyn with lactobacillus but discontinue doxycycline. September 02. Final urine culture report still pending. Continue Zosyn and lactobacillus. (2) Pneumonia Current Visit: Yes Status: Acute Assessment and plan: August 31. Continue Zosyn and doxycycline with lactobacillus. September 01. No obvious infiltrate seen on chest CT. Multiple pulmonary nodules of uncertain etiology were identified. Continue Zosyn with lactobacillus for UTI. Qualifiers: Pneumonia type: due to unspecified organism Laterality: bilateral Lung location: unspecified part of lung Qualified Code(s): J18.9 - Pneumonia, unspecified organism (3) Hypertension Current Visit: Yes Status: Chronic Assessment and plan: August 31. Continue lisinopril and Norvasc September 01. Azotemia worsening. Discontinue lisinopril. Continue Norvasc and monitor blood pressure. September 02. Blood pressure acceptable. Continue Norvasc. Qualifiers: Hypertension type: essential hypertension Qualified Code(s): I10 - Essential (primary) hypertension (4) Anemia Current Visit: Yes Status: Acute Assessment and plan: August 31. Anemia testing showed iron < 10, transferrin 167, ferritin 193, B12 200, and folate 16.4. She will start ferrous sulfate with ascorbic acid in a.m. She will receive a B12 injection today. September 02. Continue ferrous sulfate with ascorbic acid and oral B12 supplement. Qualifiers: Anemia type: unspecified type Qualified Code(s): D64.9 - Anemia, unspecified (5) DM type 2 (diabetes mellitus, type 2) Current Visit: Yes Status: Acute Assessment and plan: August 31. Hemoglobin A1c was satisfactory at 5.6%. Qualifiers: Diabetes mellitus salvage determiner insulin use: without salvage determiner use Diabetes mellitus complication status: without complication Qualified Code(s): E11.9 - Type 2 diabetes mellitus without complications (6) Low TSH level Current Visit: Yes Status: Acute Assessment and plan: August 31. TSH was suppressed at 0.017. Check T4 and T3 in a.m. and recheck TSH. September 01. TSH again suppressed at 0.027. Free T4 was low at 0.52. She will have FSH, LH, and estradiol levels checked to evaluate for [id number] causing secondary hypothyroidism. September 02. FSH, LH, and estradiol levels normal. She is clinically euthyroid. Recheck labs at a later date. (7) Lung nodules Current Visit: Yes Status: Acute Assessment and plan: August 31. Chest CT showed multiple noncalcified subcentimeter nodules bilaterally with precarinal adenopathy. I told her it would be reasonable to have a repeat chest CT in a few weeks to see if nodules have resolved or if further workup should be done. (8) Generalized weakness Current Visit: Yes Status: Acute Assessment and plan: September 01. She will need PT and OT evaluation and will likely benefit from swing bed stay. September 02. PT and OT evaluations will be ordered. (9) Hypokalemia Current Visit: Yes Status: Acute Assessment and plan: September 01. Supplement potassium will be given and labs will be monitored. September 02. Potassium level normalized to 3.9. Continue present management (10) Azotemia Current Visit: Yes Status: Acute Assessment and plan: September 01. BUN and creatinine have risen to 34 and 1.23 respectively. IV fluids will be started. Labs will be monitored September 02. BUN and creatinine are improved at 31 and 1.06 respectively with estimated GFR 49. Continue present management. - Subjective Interval history: August 31. She has no new complaints. September 01. She has no new complaints. September 02. She has no new complaints. - Constitutional Vitals: Temp Pulse Resp BP Pulse Ox 97.9 F 62 16 148/73 95 09/02/18 06:12 09/02/18 06:12 09/02/18 06:12 09/02/18 06:12 09/02/18 06:12 Exam: She is resting comfortably in bed and appears in no acute distress. Her affect is cheerful. I reviewed her medications and lab results. Internal Medicine: Result - Labs CBC & Chem 7: 09/02/18 06:33 09/02/18 06:33 Labs: Short CBC 09/02/18 Range/Units 06:33 WBC 6.5 (4.3-11.1) K/mcL Hgb 8.1 L (11.5-15.4) g/dL Hct 25.8 L (35.3-44.9) % Plt Count 122 L (140-400) K/mcL Neutrophils # 5.0 (1.6-8.9) K/mcL BMP 09/02/18 06:33 Sodium 137 Potassium 3.9 Chloride 107 Carbon Dioxide 22 L BUN 31 H Creatinine 1.06 Glucose 109 H Calcium 8.3 L Consult Discharge Plan - Plan Referrals: Melva De Souza MD [Primary Care Provider] - 1 week
[2018-09-02] MEDS: Budesonide/Formoterol 160/4.5 1 PUFF INH IH SCH ×2 (11:10→23:11)
[2018-09-03] MEDS: Piperacillin/Tazobactam 3.375 GM in 0.9 % Sodium Chloride Mini Bag 100 ML IVPB SCH ×3 (03:10→16:54)
[2018-09-03] MEDS: Ascorbic Acid 500 MG TABLET PO SCH (06:19)
[2018-09-03] MEDS: Famotidine 20 MG TABLET PO SCH (08:20)
[2018-09-03] MEDS: Gabapentin 100 MG CAPSULE PO SCH (08:20)
[2018-09-03] MEDS: Lactobacillus 1 EACH CAP.SPRINK PO SCH ×2 (08:20→20:40)
[2018-09-03] MEDS: Aspirin Enteric Coated 81 MG Tablet PO SCH (08:21)
[2018-09-03] MEDS: FLUoxetine HCl 10 MG CAPSULE PO SCH (08:21)
[2018-09-03] MEDS: amLODIPine 5 MG TABLET PO SCH (08:21)
[2018-09-03] MEDS: Cyanocobalamin (B-12) 1,000 MCG TABLET PO SCH (08:21)
[2018-09-03] MEDS: NUVIGIL 250 MG PO SCH (08:22)
--- NOTE | 2018-09-03 10:16 | Internal Med Progress Note ---
Date of Encounter: 09/03/18 Time of Encounter: 10:09 - Assessment and plan (1) Pyelonephritis Current Visit: Yes Status: Acute Assessment and plan: August 31. Continue Zosyn and doxycycline with lactobacillus. Urine culture report pending. September 01. Urine culture preliminary report shows gram-negative rods. Continue Zosyn with lactobacillus but discontinue doxycycline. September 02. Final urine culture report still pending. Continue Zosyn and lactobacillus. September 03. Final culture report reviewed showing Escherichia coli. Continue IV Zosyn and lactobacillus. (2) Pneumonia Current Visit: Yes Status: Acute Assessment and plan: August 31. Continue Zosyn and doxycycline with lactobacillus. September 01. No obvious infiltrate seen on chest CT. Multiple pulmonary nodules of uncertain etiology were identified. Continue Zosyn with lactobacillus for UTI. Qualifiers: Pneumonia type: due to unspecified organism Laterality: bilateral Lung location: unspecified part of lung Qualified Code(s): J18.9 - Pneumonia, unspecified organism (3) Hypertension Current Visit: Yes Status: Chronic Assessment and plan: August 31. Continue lisinopril and Norvasc September 01. Azotemia worsening. Discontinue lisinopril. Continue Norvasc and monitor blood pressure. September 02. Blood pressure acceptable. Continue Norvasc. Qualifiers: Hypertension type: essential hypertension Qualified Code(s): I10 - Essential (primary) hypertension (4) Anemia Current Visit: Yes Status: Acute Assessment and plan: August 31. Anemia testing showed iron < 10, transferrin 167, ferritin 193, B12 200, and folate 16.4. She will start ferrous sulfate with ascorbic acid in a.m. She will receive a B12 injection today. September 02. Continue ferrous sulfate with ascorbic acid and oral B12 supplement. September 03. Recheck labs in a.m. Qualifiers: Anemia type: unspecified type Qualified Code(s): D64.9 - Anemia, unspecified (5) DM type 2 (diabetes mellitus, type 2) Current Visit: Yes Status: Acute Assessment and plan: August 31. Hemoglobin A1c was satisfactory at 5.6%. Qualifiers: Diabetes mellitus regional intermodal truck driver insulin use: without fpc use Diabetes mellitus complication status: without complication Qualified Code(s): E11.9 - Type 2 diabetes mellitus without complications (6) Low TSH level Current Visit: Yes Status: Acute Assessment and plan: August 31. TSH was suppressed at 0.017. Check T4 and T3 in a.m. and recheck TSH. September 01. TSH again suppressed at 0.027. Free T4 was low at 0.52. She will have FSH, LH, and estradiol levels checked to evaluate for [id number] causing secondary hypothyroidism. September 02. FSH, LH, and estradiol levels normal. She is clinically euthyroid. Recheck labs at a later date. (7) Lung nodules Current Visit: Yes Status: Acute Assessment and plan: August 31. Chest CT showed multiple noncalcified subcentimeter nodules bilaterally with precarinal adenopathy. I told her it would be reasonable to have a repeat chest CT in a few weeks to see if nodules have resolved or if further workup should be done. (8) Generalized weakness Current Visit: Yes Status: Acute Assessment and plan: September 01. She will need PT and OT evaluation and will likely benefit from swing bed stay. September 02. PT and OT evaluations will be ordered. (9) Hypokalemia Current Visit: Yes Status: Acute Assessment and plan: September 01. Supplement potassium will be given and labs will be monitored. September 02. Potassium level normalized to 3.9. Continue present management September 03. Recheck labs in a.m. (10) Azotemia Current Visit: Yes Status: Acute Assessment and plan: September 01. BUN and creatinine have risen to 34 and 1.23 respectively. IV fluids will be started. Labs will be monitored September 02. BUN and creatinine are improved at 31 and 1.06 respectively with estimated GFR 49. Continue present management. September 03. Recheck labs in a.m. - Subjective Interval history: August 31. She has no new complaints. September 01. She has no new complaints. September 02. She has no new complaints. September 03. She has no new complaints. - Constitutional Vitals: Temp Pulse Resp BP Pulse Ox 98.2 F 54 16 151/72 94 09/03/18 07:48 09/03/18 07:48 09/03/18 07:48 09/03/18 07:48 09/03/18 07:48 Exam: She is resting comfortably in bed. Her affect is bright and cheerful. She had multiple episodes of drifting toward sleep during the visit. I reviewed her medications and lab results. Internal Medicine: Result - Labs CBC & Chem 7: 09/02/18 06:33 09/02/18 06:33 Consult Discharge Plan - Plan Referrals: Melva De Souza MD [Primary Care Provider] - 1 week
[2018-09-03] MEDS: Budesonide/Formoterol 160/4.5 1 PUFF INH IH SCH ×2 (10:19→22:36)
[2018-09-03] MEDS ORDERED: Aspirin Enteric Coated 81 MG Tablet PO SCH (10:30)
[2018-09-04] MEDS: Piperacillin/Tazobactam 3.375 GM in 0.9 % Sodium Chloride Mini Bag 100 ML IVPB SCH ×2 (00:16→10:31)
[2018-09-04 05:38] LABS: Basophils % 0.4 %; Eosinophils # 0.1 K/mcL (0.0-0.6); Eosinophils % 2.4 %; Hematocrit 25.8 % (35.3-44.9); Hemoglobin 8.1 g/dL (11.5-15.4); Immature Granulocytes % 0.6 % (0-4); Lymphocytes # 1.3 K/mcL (0.6-4.6); Lymphocytes % 23.9 %; Mean Corpuscular HGB Conc 31.4 g/dL (31.6-35.5); Mean Corpuscular Hemoglobin 29.1 pg (28.0-33.3); Mean Corpuscular Volume 92.8 fL (83.0-100.0); Mean Platelet Volume 11.8 fL (9.4-12.4); Monocytes # 0.4 K/mcL (0.0-1.3); Monocytes % 7.9 %; Neutrophils # 3.5 K/mcL (1.6-8.9); Platelet Count 163 K/mcL (140-400); Red Blood Count 2.78 M/mcL (3.82-4.97); Red Cell Distribution Width 16.7 % (11.5-14.5); Segmented Neutrophils % 64.8 %
[2018-09-04 06:05] LABS: BUN/Creatinine Ratio 27 (6-26); Blood Urea Nitrogen 24 mg/dL (8-23); Calcium 8.6 mg/dL (8.6-10.3); Carbon Dioxide 21 mEq/L (23-29); Chloride 110 mEq/L (98-107); Glucose 107 mg/dL (70-105); Osmolality,Calculated 295 (280-300); Potassium 4.7 mEq/L (3.5-5.1); Sodium 140 mEq/L (136-145); eGFR For Non-African Americans 60 (> 60)
[2018-09-04] MEDS: Ascorbic Acid 500 MG TABLET PO SCH (06:29)
[2018-09-04] MEDS: Budesonide/Formoterol 160/4.5 1 PUFF INH IH SCH (10:00)
--- NOTE | 2018-09-04 10:23 | Discharge Summary ---
Orders not resulted at time of discharge: Pending orders 08/30/18 13:37 Culture,Blood [] Stat Date of Encounter: 09/04/18 Time of Encounter: 10:14 - Discharge Diagnosis (1) Pyelonephritis Priority: Primary Status: Acute (2) Pneumonia Priority: Secondary Status: Resolved Qualifiers: Pneumonia type: due to unspecified organism Laterality: bilateral Lung location: unspecified part of lung Qualified Code(s): J18.9 - Pneumonia, unspecified organism (3) Hypertension Priority: Secondary Status: Chronic Qualifiers: Hypertension type: essential hypertension Qualified Code(s): I10 - Essential (primary) hypertension (4) Anemia Priority: Secondary Status: Acute Qualifiers: Anemia type: unspecified type Qualified Code(s): D64.9 - Anemia, unspecified (5) DM type 2 (diabetes mellitus, type 2) Priority: Secondary Status: Acute Qualifiers: Diabetes mellitus longterm insulin use: without longterm use Diabetes mellitus complication status: without complication Qualified Code(s): E11.9 - Type 2 diabetes mellitus without complications (6) Low TSH level Priority: Secondary Status: Acute (7) Lung nodules Priority: Secondary Status: Acute (8) Generalized weakness Priority: Secondary Status: Acute (9) Hypokalemia Priority: Secondary Status: Acute (10) Azotemia Priority: Secondary Status: Acute Hospital course: Ms. Hamilton is a 82 year old female who came to emergency room after family reported fever 102 F at home with lethargy. She had no vomiting or diarrhea. There was no significant cough. She was evaluated in emergency room and was felt to have acute pyelonephritis. Chest x-ray showed possible bilateral pneumonia. She was admitted to [facility] floor for ongoing care needs. Initial orders were written by the emergency room physician. I saw her on August 30 and performed a history and physical. She was started empirically on Zosyn and doxycycline with lactobacillus UTI and possible pneumonia. Urine culture returned showing Escherichia coli. Zosyn was continued until discharge to swing bed. Chest CT was done to further evaluate. There were multiple pulmonary nodules of uncertain etiology. There was also precarinal adenopathy. Zosyn was continued. Repeat chest CT can be done in a few weeks to see if nodules have resolved or further workup should be done. Lisinopril was discontinued because of azotemia. IV fluids were given and BUN and creatinine improved to 24 and 0.90 by day of discharge and to swing bed. Anemia testing showed iron < 10, transferrin 167, ferritin 193, B12 200, and folate 16.4. She was given a B12 injection started on oral B12 supplement. She was also started on ferrous sulfate with ascorbic acid. Hemoglobin A1c was satisfactory at 5.6% TSH returned suppressed at 0.017. Repeat TSH the following day was again suppressed at 0.027. Free T4 was low at 0.52. FSH, LH, and estradiol levels returned normal. She was clinically euthyroid. Thyroid test will be checked at a later date. Physical therapy and occupational therapy evaluations with ongoing interventions were done. It was felt she would benefit from continued therapy in swing bed. She was discharged to swing bed on September 04. - Time Spent with Patient Total time spent providing and/or coordinating discharge services: - Discharge Medications Prescriptions: New Ascorbic Acid [Vitamin C] 500 mg PO 0630 tablet Aspirin Enteric Coated [Aspirin EC] 81 mg PO Q48H tablet. cephALEXin [Keflex] 500 mg PO Q8H 5 Days capsule Cyanocobalamin (B-12) [Vitamin B12] 1,000 mcg PO DAILY tablet Ferrous Sulfate 325 mg PO 0630 tablet Lactobacillus [Culturelle] 1 each PO BID 5 Days cap.sprink Continue Vit C/E/Zn/Coppr/Lutein/Zeaxan [Preservision Areds 2 Softgel] 1 each PO DAILY Ondansetron HCl [Zofran] 4 mg PO Q8HR PRN PRN Reason: Nausea Gemfibrozil [Lopid] 600 mg PO BIDWM Armodafinil [Nuvigil] 250 mg PO BID Gabapentin [Neurontin] 100 mg PO DAILY FLUoxetine HCl [Sarafem] 30 mg PO DAILY Famotidine [Heartburn Prevention] 20 mg PO DAILY Donepezil HCl [Aricept] 10 mg PO DAILY Amlodipine Besylate 5 mg PO DAILY Alendronate Sodium 70 mg PO QWEEK Albuterol Neb [Proventil Neb] 2.5 mg IH PRN PRN PRN Reason: Shortness Of Breath Fluticasone/Salmeterol [Advair 500-50 Diskus] 1 each IH BID Albuterol Sulfate [Proair Hfa] 90 mcg IH BID Discontinued Oxybutynin [Ditropan] 10 mg PO DAILY Lisinopril [Zestril] 40 mg PO DAILY Ferrous Sulfate [Iron] 325 mg PO Q48H Aspirin [Lo-Dose Aspirin EC] 81 mg PO DAILY Home Medications: Albuterol Neb [Proventil Neb] 2.5 mg IH PRN PRN 08/30/18 [History] Albuterol Sulfate [Proair Hfa] 90 mcg IH BID 08/30/18 [History] Alendronate Sodium 70 mg PO QWEEK 08/30/18 [History] Amlodipine Besylate 5 mg PO DAILY 08/30/18 [History] Armodafinil [Nuvigil] 250 mg PO BID 08/30/18 [History] Donepezil HCl [Aricept] 10 mg PO DAILY 08/30/18 [History] FLUoxetine HCl [Sarafem] 30 mg PO DAILY 08/30/18 [History] Famotidine [Heartburn Prevention] 20 mg PO DAILY 08/30/18 [History] Fluticasone/Salmeterol [Advair 500-50 Diskus] 1 each IH BID 08/30/18 [History] Gabapentin [Neurontin] 100 mg PO DAILY 08/30/18 [History] Gemfibrozil [Lopid] 600 mg PO BIDWM 08/30/18 [History] Ondansetron HCl [Zofran] 4 mg PO Q8HR PRN 08/30/18 [History] Vit C/E/Zn/Coppr/Lutein/Zeaxan [Preservision Areds 2 Softgel] 1 each PO DAILY 08/30/18 [History] Ascorbic Acid [Vitamin C] 500 mg PO 0630 tablet 09/04/18 [Rx] Aspirin Enteric Coated [Aspirin EC] 81 mg PO Q48H tablet. 09/04/18 [Rx] Cyanocobalamin (B-12) [Vitamin B12] 1,000 mcg PO DAILY tablet 09/04/18 [Rx] Ferrous Sulfate 325 mg PO 0630 tablet 09/04/18 [Rx] Lactobacillus [Culturelle] 1 each PO BID 5 Days cap.sprink 09/04/18 [Rx] cephALEXin [Keflex] 500 mg PO Q8H 5 Days capsule 09/04/18 [Rx] Allergies/Adverse Reactions: Allergy/AdvReac Type Severity Reaction Status Date / Time methenamine [From Hiprex] Allergy Hives Verified 08/30/18 13:11 monosodium glutamate Allergy Anaphylaxis Verified 08/30/18 13:11 moxifloxacin [From Avelox] Allergy Anaphylaxis Verified 07/26/18 02:37 naproxen [From Naprosyn] Allergy Rash Verified 07/26/18 02:37 clarithromycin [From Biaxin] AdvReac Nausea Verified 07/26/18 02:37 pantoprazole [From Protonix] AdvReac Nausea Verified 07/26/18 02:37 Date of admission: 09/01/18 10:56 Primary care physician: Melva De Souza MD Consults: 09/02/18 09:55 Consult to Occupational Therapy [CONS] Routine Comment: Evaluate, develop and implement POC Reason for Consult: Weakness Does patient have active BEDREST order?: No Is patient medically & hemodynamically stable?: Yes Patient assessed for mobility or mobilized this visit?: Yes Consult to Physical Therapy [CONS] Routine Comment: Evaluate, develop and implement POC Reason for Consult: Weakness Does patient have active BEDREST order?: No Is patient medically & hemodynamically stable?: Yes Patient assessed for mobility or mobilized this visit?: Yes - Constitutional Vitals: Temp Pulse Resp BP Pulse Ox 97.9 F 57 16 156/75 97 09/04/18 06:54 09/04/18 06:54 09/04/18 06:54 09/04/18 06:54 09/04/18 06:54 - Patient Status Disposition: Transfer Hospital Swing Bed Condition: Fair - Discharge Instructions - Diet and Activity Activity: as per physical therapy Diet: advance to your usual diet
[2018-09-04] MEDS: Famotidine 20 MG TABLET PO SCH (10:35)
[2018-09-04] MEDS: Cyanocobalamin (B-12) 1,000 MCG TABLET PO SCH (10:35)
[2018-09-04] MEDS: Gabapentin 100 MG CAPSULE PO SCH (10:35)
[2018-09-04] MEDS: Lactobacillus 1 EACH CAP.SPRINK PO SCH (10:35)
[2018-09-04] MEDS: amLODIPine 5 MG TABLET PO SCH (10:35)
[2018-09-04] MEDS: NUVIGIL 250 MG PO SCH (10:36)
[2018-09-04] MEDS: FLUoxetine HCl 10 MG CAPSULE PO SCH (10:36)
[2018-09-04 11:32] VITALS: BP 164/61
== END 2018-09-04 13:27 | disposition other institution (70) | DRG 689 ==
LOC: INPPIK 12:53 → EMEROOPIK 12:53 → INPPIK 15:42
PROVIDERS: ADMIT Internal Medicine; ATTEND Internal Medicine

== ENCOUNTER 2018-09-04 13:24 | Inpatient (IN) ==
[2018-09-04] MEDS ORDERED: Ondansetron ODT 4 MG TAB.RAPDIS PO PRN (13:33)
[2018-09-04] MEDS ORDERED: Albuterol 2.5 MG/3 ML NEBULIZER IH PRN (13:33)
[2018-09-04] MEDS ORDERED: Aspirin Enteric Coated 81 MG Tablet PO SCH (14:00)
[2018-09-04] MEDS: cephALEXin 500 MG CAPSULE PO SCH ×2 (17:20→20:51)
[2018-09-04] MEDS: Lactobacillus 1 EACH CAP.SPRINK PO SCH (20:51)
[2018-09-04] MEDS ORDERED: NON-FORMULARY MEDICATION 1 EACH EACH (Fluticasone/Salmeterol [Advair 500-50 Diskus] 1 EACH IH SCH (21:00)
[2018-09-04] MEDS: Budesonide/Formoterol 160/4.5 1 PUFF INH IH SCH (21:14)
[2018-09-05 06:04] LABS: Basophils % 0.2 %; Eosinophils # 0.2 K/mcL (0.0-0.6); Eosinophils % 3.6 %; Hematocrit 26.3 % (35.3-44.9); Hemoglobin 8.4 g/dL (11.5-15.4); Immature Granulocytes % 0.9 % (0-4); Lymphocytes # 1.4 K/mcL (0.6-4.6); Lymphocytes % 25.8 %; Mean Corpuscular HGB Conc 31.9 g/dL (31.6-35.5); Mean Corpuscular Hemoglobin 29.5 pg (28.0-33.3); Mean Corpuscular Volume 92.3 fL (83.0-100.0); Mean Platelet Volume 10.7 fL (9.4-12.4); Monocytes # 0.4 K/mcL (0.0-1.3); Neutrophils # 3.4 K/mcL (1.6-8.9); Platelet Count 178 K/mcL (140-400); Red Blood Count 2.85 M/mcL (3.82-4.97); Red Cell Distribution Width 16.5 % (11.5-14.5); Segmented Neutrophils % 61.5 %
[2018-09-05 06:12] LABS: INR 1.1; Prothrombin Time 12.6 Seconds (9.4-12.1)
[2018-09-05 06:14] LABS: Activated Partial Thrombo Time 36.8 Seconds (26.0-36.0)
[2018-09-05 06:25] LABS: BUN/Creatinine Ratio 27 (6-26); Blood Urea Nitrogen 22 mg/dL (8-23); Calcium 8.6 mg/dL (8.6-10.3); Carbon Dioxide 24 mEq/L (23-29); Chloride 107 mEq/L (98-107); Glucose 120 mg/dL (70-105); Osmolality,Calculated 293 (280-300); Potassium 4.4 mEq/L (3.5-5.1); Sodium 139 mEq/L (136-145); eGFR For Non-African Americans > 60 (> 60)
[2018-09-05] MEDS: cephALEXin 500 MG CAPSULE PO SCH ×3 (06:28→21:32)
[2018-09-05] MEDS: Ascorbic Acid 500 MG TABLET PO SCH (06:28)
[2018-09-05] MEDS: Lactobacillus 1 EACH CAP.SPRINK PO SCH ×2 (07:53→21:32)
[2018-09-05] MEDS: Multivit/Ca/Min/Fe/FA 1 TAB TABLET PO SCH (07:53)
[2018-09-05] MEDS: Gabapentin 100 MG CAPSULE PO SCH (07:54)
[2018-09-05] MEDS: Aspirin Enteric Coated 81 MG Tablet PO SCH (07:54)
[2018-09-05] MEDS: FLUoxetine HCl 10 MG CAPSULE PO SCH (07:54)
[2018-09-05] MEDS: Famotidine 20 MG TABLET PO SCH (07:54)
[2018-09-05] MEDS: amLODIPine 5 MG TABLET PO SCH (07:54)
[2018-09-05] MEDS: Cyanocobalamin (B-12) 1,000 MCG TABLET PO SCH (07:54)
[2018-09-05] MEDS ORDERED: Armodafinil [Nuvigil] 250 MG PO SCH (09:00)
[2018-09-05] MEDS: Budesonide/Formoterol 160/4.5 1 PUFF INH IH SCH ×2 (10:10→21:27)
--- NOTE | 2018-09-05 12:33 | Internal Med Progress Note ---
Date of Encounter: 09/05/18 Time of Encounter: 12:25 - Assessment and plan (1) Pyelonephritis Current Visit: No Status: Acute Assessment and plan: September 05. Continue oral Keflex with lactobacillus through 09/09/2018. (2) Generalized weakness Current Visit: No Status: Acute Assessment and plan: September 05. Continue PT and OT intervention. (3) Anemia Current Visit: No Status: Acute Assessment and plan: September 05. Hemoglobin improved to 8.4. Continue ferrous sulfate with ascorbic acid. Qualifiers: Anemia type: unspecified type Qualified Code(s): D64.9 - Anemia, unspec ified (4) Low TSH level Current Visit: No Status: Acute Assessment and plan: September 05. Recheck labs as outpatient. (5) Hypertension Current Visit: No Status: Chronic Assessment and plan: September 05. Continue Norvasc. Qualifiers: Hypertension type: essential hypertension Qualified Code(s): I10 - Essential (primary) hypertension - Subjective Interval history: September 05. She was hospitalized in acute-care at [facility] August 30 with pyelonephritis. Escherichia coli was cultured and she remains on antibiotics in swing bed. Chest CT showed multiple pulmonary nodules with repeat CT to be done in a few weeks. Azotemia improved after lisinopril was discontinued and IV fluids given. She was started on ferrous sulfate with ascorbic acid for anemia. TSH returned suppressed. She was clinically euthyroid and thyroid tests will be rechecked at a later date. She had physical therapy and occupational therapy evaluations and it was felt she would benefit from continuing therapy in swing bed. She has no new complaints today and states she feels stronger. - Constitutional Vitals: Temp Pulse Resp BP Pulse Ox 97.9 F 60 14 186/70 98 09/05/18 06:32 09/05/18 06:32 09/05/18 10:10 09/05/18 06:32 09/05/18 10:10 Exam: She is sitting in a chair at bedside resting comfortably. Her affect is bright and cheerful. I reviewed her medications and lab results. Internal Medicine: Result - Labs CBC & Chem 7: 09/05/18 05:30 09/05/18 05:30 Labs: Short CBC 09/05/18 Range/Units 05:30 WBC 5.5 (4.3-11.1) K/mcL Hgb 8.4 L (11.5-15.4) g/dL Hct 26.3 L (35.3-44.9) % Plt Count 178 (140-400) K/mcL Neutrophils # 3.4 (1.6-8.9) K/mcL BMP 09/05/18 05:30 Sodium 139 Potassium 4.4 Chloride 107 Carbon Dioxide 24 BUN 22 Creatinine 0.81 Glucose 120 H Calcium 8.6 - ABG Interpretation ABG results: PT/INR, D-dimer PT 12.6 Seconds (9.4-12.1) H 09/05/18 05:30 Consult Discharge Plan - Plan Referrals: Melva De Souza MD [Primary Care Provider] - 1 week
[2018-09-06] MEDS: Ascorbic Acid 500 MG TABLET PO SCH (06:50)
[2018-09-06] MEDS: cephALEXin 500 MG CAPSULE PO SCH ×3 (06:50→23:11)
[2018-09-06] MEDS ORDERED: ALENDRONATE SODIUM 70 MG PO SCH (07:30)
[2018-09-06] MEDS: Famotidine 20 MG TABLET PO SCH (08:14)
[2018-09-06] MEDS: Gabapentin 100 MG CAPSULE PO SCH (08:14)
[2018-09-06] MEDS: amLODIPine 5 MG TABLET PO SCH (08:14)
[2018-09-06] MEDS: Lactobacillus 1 EACH CAP.SPRINK PO SCH ×2 (08:14→21:13)
[2018-09-06] MEDS: Multivit/Ca/Min/Fe/FA 1 TAB TABLET PO SCH (08:14)
[2018-09-06] MEDS: Cyanocobalamin (B-12) 1,000 MCG TABLET PO SCH (08:15)
[2018-09-06] MEDS: FLUoxetine HCl 10 MG CAPSULE PO SCH (08:17)
[2018-09-06] MEDS: Armodafinil [Nuvigil] 250 MG PO SCH (08:32)
[2018-09-06] MEDS: Budesonide/Formoterol 160/4.5 1 PUFF INH IH SCH ×2 (10:28→22:06)
[2018-09-07] MEDS: cephALEXin 500 MG CAPSULE PO SCH ×2 (06:36→15:42)
[2018-09-07] MEDS: Ascorbic Acid 500 MG TABLET PO SCH (06:37)
[2018-09-07] MEDS: Lactobacillus 1 EACH CAP.SPRINK PO SCH ×2 (09:44→20:21)
[2018-09-07] MEDS: Armodafinil [Nuvigil] 250 MG PO SCH (09:44)
[2018-09-07] MEDS: Cyanocobalamin (B-12) 1,000 MCG TABLET PO SCH (09:46)
[2018-09-07] MEDS: Famotidine 20 MG TABLET PO SCH (09:46)
[2018-09-07] MEDS: Gabapentin 100 MG CAPSULE PO SCH (09:46)
[2018-09-07] MEDS: Aspirin Enteric Coated 81 MG Tablet PO SCH (09:46)
[2018-09-07] MEDS: amLODIPine 5 MG TABLET PO SCH (09:47)
[2018-09-07] MEDS: Multivit/Ca/Min/Fe/FA 1 TAB TABLET PO SCH (09:47)
[2018-09-07] MEDS: FLUoxetine HCl 10 MG CAPSULE PO SCH (09:47)
[2018-09-07] MEDS: Budesonide/Formoterol 160/4.5 1 PUFF INH IH SCH ×2 (09:56→22:23)
[2018-09-08] MEDS: cephALEXin 500 MG CAPSULE PO SCH ×4 (00:17→21:00)
[2018-09-08] MEDS: Ascorbic Acid 500 MG TABLET PO SCH (06:49)
[2018-09-08] MEDS: Budesonide/Formoterol 160/4.5 1 PUFF INH IH SCH ×2 (09:12→21:26)
[2018-09-08] MEDS: Gabapentin 100 MG CAPSULE PO SCH (09:30)
[2018-09-08] MEDS: Cyanocobalamin (B-12) 1,000 MCG TABLET PO SCH (09:30)
[2018-09-08] MEDS: Lactobacillus 1 EACH CAP.SPRINK PO SCH ×2 (09:30→20:34)
[2018-09-08] MEDS: amLODIPine 5 MG TABLET PO SCH (09:31)
[2018-09-08] MEDS: Famotidine 20 MG TABLET PO SCH ×2 (09:31→20:34)
[2018-09-08] MEDS: Multivit/Ca/Min/Fe/FA 1 TAB TABLET PO SCH (09:31)
[2018-09-08] MEDS: FLUoxetine HCl 10 MG CAPSULE PO SCH (09:32)
[2018-09-08] MEDS: Armodafinil [Nuvigil] 250 MG PO SCH (09:32)
--- NOTE | 2018-09-08 11:16 | Internal Med Progress Note ---
Date of Encounter: 09/08/18 Time of Encounter: 10:25 - Assessment and plan (1) Pyelonephritis Current Visit: No Status: Acute Assessment and plan: September 05. Continue oral Keflex with lactobacillus through 09/09/2018. (2) Generalized weakness Current Visit: No Status: Acute Assessment and plan: September 05. Continue PT and OT intervention. September 08. Anticipate discharge home tomorrow. (3) Anemia Current Visit: No Status: Acute Assessment and plan: September 05. Hemoglobin improved to 8.4. Continue ferrous sulfate with asc orbic acid. Qualifiers: Anemia type: unspecified type Qualified Code(s): D64.9 - Anemia, unspecified (4) Low TSH level Current Visit: No Status: Acute Assessment and plan: September 05. Recheck labs as outpatient. (5) Hypertension Current Visit: No Status: Chronic Assessment and plan: September 05. Continue Norvasc. Qualifiers: Hypertension type: essential hypertension Qualified Code(s): I10 - Essential (primary) hypertension - Subjective Interval history: September 05. She was hospitalized in acute-care at [facility] August 30 with pyelonephritis. Escherichia coli was cultured and she remains on antibiotics in swing bed. Chest CT showed multiple pulmonary nodules with repeat CT to be done in a few weeks. Azotemia improved after lisinopril was discontinued and IV fluids given. She was started on ferrous sulfate with ascorbic acid for anemia. TSH returned suppressed. She was clinically euthyroid and thyroid tests will be rechecked at a later date. She had physical therapy and occupational therapy evaluations and it was felt she would benefit from continuing therapy in swing bed. She has no new complaints today and states she feels stronger. September 08. She has no new complaints and feels well. - Constitutional Vitals: Temp Pulse Resp BP Pulse Ox 97.9 F 64 16 161/66 95 09/08/18 09:32 09/08/18 09:32 09/08/18 09:32 09/08/18 09:32 09/08/18 09:32 Exam: She is resting comfortably in chair at bedside and appears in no acute distress. Her affect is bright and cheerful. I reviewed her medications and past lab results. I answered questions she and her daughter asked. Internal Medicine: Result - Labs CBC & Chem 7: 09/05/18 05:30 09/05/18 05:30 - ABG Interpretation ABG results: PT/INR, D-dimer PT 12.6 Seconds (9.4-12.1) H 09/05/18 05:30 Consult Discharge Plan - Plan Referrals: Melva De Souza MD [Primary Care Provider] - 1 week
[2018-09-09] MEDS: cephALEXin 500 MG CAPSULE PO SCH (05:53)
[2018-09-09] MEDS: Ascorbic Acid 500 MG TABLET PO SCH (05:53)
[2018-09-09 06:48] VITALS: BP 153/66
[2018-09-09] MEDS: Aspirin Enteric Coated 81 MG Tablet PO SCH (09:45)
[2018-09-09] MEDS: Gabapentin 100 MG CAPSULE PO SCH (09:46)
[2018-09-09] MEDS: FLUoxetine HCl 10 MG CAPSULE PO SCH (09:46)
[2018-09-09] MEDS: Cyanocobalamin (B-12) 1,000 MCG TABLET PO SCH (09:46)
[2018-09-09] MEDS: Multivit/Ca/Min/Fe/FA 1 TAB TABLET PO SCH (09:46)
[2018-09-09] MEDS: Lactobacillus 1 EACH CAP.SPRINK PO SCH (09:46)
[2018-09-09] MEDS: Famotidine 20 MG TABLET PO SCH (09:46)
[2018-09-09] MEDS: amLODIPine 5 MG TABLET PO SCH (09:47)
[2018-09-09] MEDS: Armodafinil [Nuvigil] 250 MG PO SCH (09:54)
--- NOTE | 2018-09-09 10:15 | Discharge Summary ---
Date of Encounter: 09/09/18 Time of Encounter: 09:57 - Discharge Diagnosis (1) Pyelonephritis Priority: Primary Status: Resolved (2) Generalized weakness Priority: Secondary Status: Acute (3) Anemia Priority: Secondary Status: Acute Qualifiers: Anemia type: iron deficiency Iron deficiency anemia type: unspecified iron deficiency Qualified Code(s): D50.9 - Iron deficiency anemia, unspecified (4) Low TSH level Priority: Secondary Status: Acute (5) Hypertension Priority: Secondary Status: Chronic Qualifiers: Hypertension type: essential hypertension Qualified Code(s): I10 - Essential (primary) hypertension Hospital course: Ms. Hamilton is a 82 year old female who was hospitalized in acute-care at [facility] August 30 with pyelonephritis. Escherichia coli was cultured and she remains on antibiotics in swing bed. Chest CT showed multiple pulmonary nodules with repeat CT to be done in a few weeks. Azotemia improved after lisinopril was discontinued and IV fluids given. She was started on ferrous sulfate with ascorbic acid for anemia. TSH returned suppressed. She was clinically euthyroid and thyroid tests will be rechecked at a later date. She had physical therapy and occupational therapy evaluations and it was felt she would benefit from continuing therapy in swing bed. She continued to have physical therapy and occupational therapy in swing bed. She made satisfactory progress and felt stable for discharge home on September 09. She continued on oral Keflex with lactobacillus through her swing bed stay. Antibiotics will not be continued at discharge. Hemoglobin improved to 8.4 on September 05. She will continue ferrous sulfate with ascorbic acid at discharge. Her PCP can monitor TSH/thyroid panel as an outpatient. Blood pressure remains overall satisfactory on Norvasc. Lisinopril was discontinued because of azotemia which resolved after discontinuation of the medication. Her PCP can monitor blood pressure and adjust medications as needed. She will follow with Dr. De Souza within 1 week. Outpatient physical therapy will be ordered. - Time Spent with Patient Total time spent providing and/or coordinating discharge services: - Discharge Medications Prescriptions: Continue Vit C/E/Zn/Coppr/Lutein/Zeaxan [Preservision Areds 2 Softgel] 1 each PO DAILY Ondansetron HCl [Zofran] 4 mg PO Q8HR PRN PRN Reason: Nausea Gemfibrozil [Lopid] 600 mg PO BIDWM Armodafinil [Nuvigil] 250 mg PO BID Gabapentin [Neurontin] 100 mg PO DAILY FLUoxetine HCl [Sarafem] 30 mg PO DAILY Donepezil HCl [Aricept] 10 mg PO DAILY Amlodipine Besylate 5 mg PO DAILY Alendronate Sodium 70 mg PO QWEEK Albuterol Neb [Proventil Neb] 2.5 mg IH PRN PRN PRN Reason: Shortness Of Breath Fluticasone/Salmeterol [Advair 500-50 Diskus] 1 each IH BID Albuterol Sulfate [Proair Hfa] 90 mcg IH BID Ascorbic Acid [Vitamin C] 500 mg PO 0630 tablet Aspirin Enteric Coated [Aspirin EC] 81 mg PO Q48H tablet. Cyanocobalamin (B-12) [Vitamin B12] 1,000 mcg PO DAILY tablet Ferrous Sulfate 325 mg PO 0630 tablet Changed Famotidine [Heartburn Prevention] 40 mg PO BID PRN #0 PRN Reason: Dyspepsia Home Medications: Albuterol Neb [Proventil Neb] 2.5 mg IH PRN PRN 08/30/18 [History] Albuterol Sulfate [Proair Hfa] 90 mcg IH BID 08/30/18 [History] Alendronate Sodium 70 mg PO QWEEK 08/30/18 [History] Amlodipine Besylate 5 mg PO DAILY 08/30/18 [History] Armodafinil [Nuvigil] 250 mg PO BID 08/30/18 [History] Donepezil HCl [Aricept] 10 mg PO DAILY 08/30/18 [History] FLUoxetine HCl [Sarafem] 30 mg PO DAILY 08/30/18 [History] Fluticasone/Salmeterol [Advair 500-50 Diskus] 1 each IH BID 08/30/18 [History] Gabapentin [Neurontin] 100 mg PO DAILY 08/30/18 [History] Gemfibrozil [Lopid] 600 mg PO BIDWM 08/30/18 [History] Ondansetron HCl [Zofran] 4 mg PO Q8HR PRN 08/30/18 [History] Vit C/E/Zn/Coppr/Lutein/Zeaxan [Preservision Areds 2 Softgel] 1 each PO DAILY 08/30/18 [History] Ascorbic Acid [Vitamin C] 500 mg PO 0630 tablet 09/04/18 [Rx] Aspirin Enteric Coated [Aspirin EC] 81 mg PO Q48H tablet. 09/04/18 [Rx] Cyanocobalamin (B-12) [Vitamin B12] 1,000 mcg PO DAILY tablet 09/04/18 [Rx] Ferrous Sulfate 325 mg PO 0630 tablet 09/04/18 [Rx] Famotidine [Heartburn Prevention] 40 mg PO BID PRN #0 09/09/18 [Rx] Allergies/Adverse Reactions: Allergy/AdvReac Type Severity Reaction Status Date / Time methenamine [From Hiprex] Allergy Hives Verified 08/30/18 13:11 monosodium glutamate Allergy Anaphylaxis Verified 08/30/18 13:11 moxifloxacin [From Avelox] Allergy Anaphylaxis Verified 07/26/18 02:37 naproxen [From Naprosyn] Allergy Rash Verified 07/26/18 02:37 clarithromycin [From Biaxin] AdvReac Nausea Verified 07/26/18 02:37 pantoprazole [From Protonix] AdvReac Nausea Verified 07/26/18 02:37 Date of admission: 09/04/18 13:34 Primary care physician: Melva De Souza MD Consults: 09/04/18 13:29 Consult to Occupational Therapy [CONS] Routine Comment: Eval, develop and implement POC Reason for Consult: Eval, develop and implement POC Does patient have active BEDREST order?: No Is patient medically & hemodynamically stable?: Yes Patient assessed for mobility or mobilized this visit?: Yes Consult to Physical Therapy [CONS] Routine Comment: Eval, develop and implement POC Reason for Consult: Eval, develop and implement POC Does patient have active BEDREST order?: No Is patient medically & hemodynamically stable?: Yes Patient assessed for mobility or mobilized this visit?: Yes Consult to Jewelry Salesperson [CONS] Routine Reason for SW Consult: May need home health upon discharge - Constitutional Vitals: Temp Pulse Resp BP Pulse Ox 97.6 F 61 14 153/66 93 09/09/18 06:41 09/09/18 06:41 09/09/18 06:41 09/09/18 06:41 09/09/18 06:41 - Patient Status Disposition: Home, Self-Care - Discharge Instructions Follow Up With: Melva De oSuza MD [Primary Care Provider] - 1 week - Diet and Activity Activity: as per physical therapy Diet: diabetic diet
[2018-09-09] MEDS: Budesonide/Formoterol 160/4.5 1 PUFF INH IH SCH (10:21)
== END 2018-09-09 14:38 | disposition home or self-care (01) | DRG 690 ==
LOC: INPPIK 13:34
PROVIDERS: ADMIT Internal Medicine; ATTEND Internal Medicine

== ENCOUNTER 2020-01-24 16:47 | Inpatient (IN) ==
[2020-01-24] MEDS ORDERED: 0.9 % Sodium Chloride 500 ML IVC ONE (17:08)
[2020-01-24] MEDS ORDERED: Gentamicin 80 MG in 0.9 % Sodium Chloride 100 ML IVPB ONE (17:10)
[2020-01-24] MEDS ORDERED: 0.9 % Sodium Chloride 1,000 ML IVC SCH (17:15)
[2020-01-24 17:36] LABS: Basophils % 0.3 %; Eosinophils % 0.8 %; Hematocrit 28.4 % (35.3-44.9); Hemoglobin 9.2 g/dL (11.5-15.4); Immature Granulocytes % 0.3 % (0-4); Lymphocytes # 1.1 K/mcL (0.6-4.6); Lymphocytes % 28.8 %; Mean Corpuscular HGB Conc 32.4 g/dL (31.6-35.5); Mean Corpuscular Hemoglobin 30.1 pg (28.0-33.3); Mean Corpuscular Volume 92.8 fL (83.0-100.0); Mean Platelet Volume 10.9 fL (9.4-12.4); Monocytes # 0.3 K/mcL (0.0-1.3); Monocytes % 8.5 %; Neutrophils # 2.4 K/mcL (1.6-8.9); Platelet Count 169 K/mcL (140-400); Red Blood Count 3.06 M/mcL (3.82-4.97); Red Cell Distribution Width 16.6 % (11.5-14.5); Segmented Neutrophils % 61.3 %; White Blood Count 3.9 K/mcL (4.3-11.1)
[2020-01-24 17:55] LABS: BUN/Creatinine Ratio 26 (6-26); Blood Urea Nitrogen 26 mg/dL (8-23); Calcium 8.4 mg/dL (8.6-10.3); Carbon Dioxide 23 mEq/L (23-29); Chloride 105 mEq/L (98-107); Glucose 123 mg/dL (70-105); Osmolality,Calculated 290 (280-300); Potassium 4.5 mEq/L (3.5-5.1); Sodium 137 mEq/L (136-145); eGFR For African Americans > 60 (> 60); eGFR For Non-African Americans 53 (> 60)
[2020-01-24 18:11] LABS: Bilirubin,Urine Negative (Negative); Blood,Urine Negative (Negative); Clarity,Urine Slightly Cloudy (Clear); Color,Urine Yellow (Yellow); Glucose,Urine (UA) Normal (Normal); Ketones,Urine Negative (Negative); Leukocyte Esterase,Urine Moderate (Negative); Nitrite,Urine Positive (Negative); PH,Urine 7.5 pH Units (5.0-8.0); Protein,Urine 30 mg/dL (Neg-Trace); Urobilinogen,Urine Normal (Normal)
[2020-01-24 18:22] LABS: WBC,Urine 50-100 per hpf (0-3)
[2020-01-24 18:23] LABS: Bacteria,Urine Many per hpf (None-Few); Mucus,Urine Few per lpf (None-Few); Renal Epithelial Cells,Urine Few per hpf (None-Few); Squamous Epithelial Cell,Urine Few per hpf (None-Few)
[2020-01-24] MEDS ORDERED: MOM Conc 10 ML UD.LIQ PO PRN (18:49)
[2020-01-24] MEDS ORDERED: Mag Hydrox/Al Hydrox/Simeth 30 ML UDC PO PRN (18:49)
[2020-01-24] MEDS ORDERED: Naloxone 0.4 MG/ML INJ IVP PRN (18:49)
[2020-01-24] MEDS ORDERED: Acetaminophen 325 MG TABLET PO PRN (18:49)
[2020-01-24] MEDS ORDERED: Ondansetron 4 MG/2 ML VIAL IVP PRN (18:49)
[2020-01-24] MEDS ORDERED: Albuterol 2.5 MG/3 ML NEBULIZER IH PRN (18:52)
[2020-01-24] MEDS ORDERED: Gentamicin 80 MG in 0.9 % Sodium Chloride 100 ML IVPB SCH (20:00)
[2020-01-24] MEDS: 0.9 % Sodium Chloride 1,000 ML IVC SCH (20:15)
[2020-01-24] MEDS: gemfibroziL 600 MG TABLET PO SCH (20:15)
[2020-01-24] MEDS: Gabapentin 100 MG CAPSULE PO SCH (20:15)
[2020-01-24] MEDS: Budesonide/Formoterol 160/4.5 1 PUFF INH IH SCH (21:09)
[2020-01-25 06:41] LABS: Basophils % 0.5 %; Eosinophils % 0.8 %; Hematocrit 31.8 % (35.3-44.9); Immature Granulocytes % 0.3 % (0-4); Lymphocytes # 1.5 K/mcL (0.6-4.6); Lymphocytes % 40.1 %; Mean Corpuscular HGB Conc 31.4 g/dL (31.6-35.5); Mean Corpuscular Hemoglobin 29.9 pg (28.0-33.3); Mean Corpuscular Volume 95.2 fL (83.0-100.0); Mean Platelet Volume 10.9 fL (9.4-12.4); Monocytes # 0.3 K/mcL (0.0-1.3); Monocytes % 7.5 %; Neutrophils # 1.9 K/mcL (1.6-8.9); Platelet Count 174 K/mcL (140-400); Red Blood Count 3.34 M/mcL (3.82-4.97); Segmented Neutrophils % 50.8 %; White Blood Count 3.7 K/mcL (4.3-11.1)
[2020-01-25 07:07] LABS: BUN/Creatinine Ratio 24 (6-26); Blood Urea Nitrogen 25 mg/dL (8-23); Calcium 8.4 mg/dL (8.6-10.3); Carbon Dioxide 22 mEq/L (23-29); Chloride 109 mEq/L (98-107); Glucose 107 mg/dL (70-105); Osmolality,Calculated 295 (280-300); Potassium 4.9 mEq/L (3.5-5.1); Sodium 140 mEq/L (136-145); eGFR For African Americans > 60 (> 60); eGFR For Non-African Americans 51 (> 60)
[2020-01-25] MEDS: 0.9 % Sodium Chloride 1,000 ML IVC SCH (08:56)
[2020-01-25] MEDS: Metoprolol XL (24 HR) Succ 25 MG TAB.ER.24H PO SCH (08:58)
[2020-01-25] MEDS: Aspirin Enteric Coated 81 MG Tablet PO SCH (08:58)
[2020-01-25] MEDS: Lactobacillus 1 EACH CAP.SPRINK PO SCH (08:58)
[2020-01-25] MEDS: amLODIPine 5 MG TABLET PO SCH (08:59)
[2020-01-25] MEDS: gemfibroziL 600 MG TABLET PO SCH ×2 (08:59→21:49)
[2020-01-25] MEDS: Budesonide/Formoterol 160/4.5 1 PUFF INH IH SCH ×2 (09:29→21:40)
[2020-01-25] MEDS: Gabapentin 100 MG CAPSULE PO SCH (17:01)
[2020-01-25] MEDS ORDERED: Gentamicin 80 MG in 0.9 % Sodium Chloride 100 ML IVPB SCH (20:00)
[2020-01-25] MEDS: cloNIDine HCL 0.1 MG TABLET PO PRN (21:48)
[2020-01-26] MEDS: 0.9 % Sodium Chloride 1,000 ML IVC SCH ×2 (00:28→14:38)
[2020-01-26] MEDS: cloNIDine HCL 0.1 MG TABLET PO PRN ×2 (05:18→14:37)
[2020-01-26 09:21] LABS: Basophils % 0.3 %; Eosinophils % 0.6 %; Hematocrit 28.6 % (35.3-44.9); Hemoglobin 9.2 g/dL (11.5-15.4); Immature Granulocytes % 0.3 % (0-4); Lymphocytes % 29.2 %; Mean Corpuscular HGB Conc 32.2 g/dL (31.6-35.5); Mean Corpuscular Hemoglobin 30.3 pg (28.0-33.3); Mean Corpuscular Volume 94.1 fL (83.0-100.0); Mean Platelet Volume 10.5 fL (9.4-12.4); Monocytes # 0.2 K/mcL (0.0-1.3); Monocytes % 5.8 %; Neutrophils # 2.2 K/mcL (1.6-8.9); Platelet Count 178 K/mcL (140-400); Red Blood Count 3.04 M/mcL (3.82-4.97); Red Cell Distribution Width 16.8 % (11.5-14.5); Segmented Neutrophils % 63.8 %; White Blood Count 3.4 K/mcL (4.3-11.1)
[2020-01-26] MEDS: gemfibroziL 600 MG TABLET PO SCH ×2 (09:34→21:06)
[2020-01-26] MEDS: Lactobacillus 1 EACH CAP.SPRINK PO SCH (09:34)
[2020-01-26] MEDS: Aspirin Enteric Coated 81 MG Tablet PO SCH (09:34)
[2020-01-26] MEDS: Metoprolol XL (24 HR) Succ 25 MG TAB.ER.24H PO SCH (09:35)
[2020-01-26] MEDS: amLODIPine 5 MG TABLET PO SCH (09:35)
[2020-01-26 09:39] LABS: BUN/Creatinine Ratio 24 (6-26); Blood Urea Nitrogen 19 mg/dL (8-23); Calcium 8.3 mg/dL (8.6-10.3); Carbon Dioxide 26 mEq/L (23-29); Chloride 109 mEq/L (98-107); Glucose 141 mg/dL (70-105); Osmolality,Calculated 297 (280-300); Potassium 4.1 mEq/L (3.5-5.1); Sodium 141 mEq/L (136-145); eGFR For African Americans > 60 (> 60); eGFR For Non-African Americans > 60 (> 60)
[2020-01-26] MEDS: Budesonide/Formoterol 160/4.5 1 PUFF INH IH SCH ×2 (10:23→21:01)
[2020-01-26] MEDS: Gabapentin 100 MG CAPSULE PO SCH (21:05)
[2020-01-27] MEDS: cloNIDine HCL 0.1 MG TABLET PO PRN ×2 (00:21→20:11)
[2020-01-27 07:16] LABS: Basophils % 0.3 %; Eosinophils % 0.3 %; Hematocrit 26.4 % (35.3-44.9); Hemoglobin 8.6 g/dL (11.5-15.4); Immature Granulocytes % 0.3 % (0-4); Lymphocytes # 1.4 K/mcL (0.6-4.6); Lymphocytes % 36.8 %; Mean Corpuscular HGB Conc 32.6 g/dL (31.6-35.5); Mean Corpuscular Hemoglobin 30.3 pg (28.0-33.3); Mean Platelet Volume 10.1 fL (9.4-12.4); Monocytes # 0.2 K/mcL (0.0-1.3); Monocytes % 6.5 %; Neutrophils # 2.1 K/mcL (1.6-8.9); Platelet Count 188 K/mcL (140-400); Red Blood Count 2.84 M/mcL (3.82-4.97); Red Cell Distribution Width 16.5 % (11.5-14.5); Segmented Neutrophils % 55.8 %; White Blood Count 3.7 K/mcL (4.3-11.1)
[2020-01-27 07:28] LABS: BUN/Creatinine Ratio 28 (6-26); Blood Urea Nitrogen 21 mg/dL (8-23); Calcium 8.2 mg/dL (8.6-10.3); Carbon Dioxide 22 mEq/L (23-29); Chloride 109 mEq/L (98-107); Glucose 97 mg/dL (70-105); Osmolality,Calculated 287 (280-300); Potassium 4.1 mEq/L (3.5-5.1); Sodium 137 mEq/L (136-145); eGFR For African Americans > 60 (> 60); eGFR For Non-African Americans > 60 (> 60)
[2020-01-27] MEDS: Lactobacillus 1 EACH CAP.SPRINK PO SCH (08:25)
[2020-01-27] MEDS: gemfibroziL 600 MG TABLET PO SCH ×2 (08:26→19:58)
[2020-01-27] MEDS: amLODIPine 5 MG TABLET PO SCH (08:26)
[2020-01-27] MEDS: Metoprolol XL (24 HR) Succ 50 MG TAB.ER.24H PO SCH (08:26)
[2020-01-27] MEDS: Aspirin Enteric Coated 81 MG Tablet PO SCH (08:26)
[2020-01-27] MEDS: Budesonide/Formoterol 160/4.5 1 PUFF INH IH SCH ×2 (09:37→21:45)
[2020-01-27] MEDS: Gabapentin 100 MG CAPSULE PO SCH (18:13)
[2020-01-28 06:26] VITALS: BP 171/72
[2020-01-28 07:28] LABS: Eosinophils % 0.2 %; Hematocrit 28.3 % (35.3-44.9); Hemoglobin 9.1 g/dL (11.5-15.4); Immature Granulocytes % 0.2 % (0-4); Lymphocytes # 1.2 K/mcL (0.6-4.6); Mean Corpuscular HGB Conc 32.2 g/dL (31.6-35.5); Mean Corpuscular Hemoglobin 29.8 pg (28.0-33.3); Mean Corpuscular Volume 92.8 fL (83.0-100.0); Mean Platelet Volume 10.7 fL (9.4-12.4); Monocytes # 0.3 K/mcL (0.0-1.3); Monocytes % 5.6 %; Neutrophils # 2.9 K/mcL (1.6-8.9); Platelet Count 229 K/mcL (140-400); Red Blood Count 3.05 M/mcL (3.82-4.97); Red Cell Distribution Width 16.1 % (11.5-14.5); White Blood Count 4.4 K/mcL (4.3-11.1)
[2020-01-28] MEDS: Budesonide/Formoterol 160/4.5 1 PUFF INH IH SCH (07:28)
[2020-01-28 07:54] LABS: BUN/Creatinine Ratio 30 (6-26); Blood Urea Nitrogen 23 mg/dL (8-23); Calcium 8.8 mg/dL (8.6-10.3); Carbon Dioxide 23 mEq/L (23-29); Chloride 107 mEq/L (98-107); Glucose 98 mg/dL (70-105); Osmolality,Calculated 290 (280-300); Sodium 138 mEq/L (136-145); eGFR For African Americans > 60 (> 60); eGFR For Non-African Americans > 60 (> 60)
[2020-01-28] MEDS: Metoprolol XL (24 HR) Succ 50 MG TAB.ER.24H PO SCH (08:43)
[2020-01-28] MEDS: Lactobacillus 1 EACH CAP.SPRINK PO SCH (08:43)
[2020-01-28] MEDS: gemfibroziL 600 MG TABLET PO SCH (08:43)
[2020-01-28] MEDS: amLODIPine 5 MG TABLET PO SCH (08:43)
[2020-01-28] MEDS: Aspirin Enteric Coated 81 MG Tablet PO SCH (08:43)
== END 2020-01-28 11:40 | disposition other institution (70) | DRG 690 ==
LOC: EMEROOPIK 16:47 → INPPIK 16:47
PROVIDERS: ADMIT Family Medicine; ATTEND Family Medicine

== ENCOUNTER 2020-01-28 11:11 | Inpatient (IN) ==
[2020-01-28] MEDS ORDERED: Ondansetron ODT 4 MG TAB.RAPDIS SL PRN (11:56)
[2020-01-28] MEDS ORDERED: cloNIDine HCL 0.1 MG TABLET PO PRN (12:03)
[2020-01-28] MEDS ORDERED: Mag Hydrox/Al Hydrox/Simeth 30 ML UDC PO PRN (12:03)
[2020-01-28] MEDS ORDERED: Albuterol 2.5 MG/3 ML NEBULIZER IH PRN (12:03)
[2020-01-28] MEDS ORDERED: MOM Conc 10 ML UD.LIQ PO PRN (12:03)
[2020-01-28] MEDS: Gabapentin 100 MG CAPSULE PO SCH (17:21)
[2020-01-28] MEDS: gemfibroziL 600 MG TABLET PO SCH (20:05)
[2020-01-28] MEDS: Budesonide/Formoterol 160/4.5 1 PUFF INH IH SCH (22:38)
[2020-01-29 07:50] LABS: Basophils % 0.2 %; Hematocrit 28.4 % (35.3-44.9); Hemoglobin 9.2 g/dL (11.5-15.4); Immature Granulocytes % 0.5 % (0-4); Lymphocytes # 1.3 K/mcL (0.6-4.6); Mean Corpuscular HGB Conc 32.4 g/dL (31.6-35.5); Mean Corpuscular Hemoglobin 29.9 pg (28.0-33.3); Mean Corpuscular Volume 92.2 fL (83.0-100.0); Mean Platelet Volume 10.3 fL (9.4-12.4); Monocytes # 0.3 K/mcL (0.0-1.3); Neutrophils # 2.6 K/mcL (1.6-8.9); Platelet Count 242 K/mcL (140-400); Red Blood Count 3.08 M/mcL (3.82-4.97); Red Cell Distribution Width 16.6 % (11.5-14.5); Segmented Neutrophils % 62.3 %; White Blood Count 4.2 K/mcL (4.3-11.1)
[2020-01-29] MEDS: Budesonide/Formoterol 160/4.5 1 PUFF INH IH SCH ×2 (07:54→22:16)
[2020-01-29 08:07] LABS: BUN/Creatinine Ratio 32 (6-26); Blood Urea Nitrogen 25 mg/dL (8-23); Carbon Dioxide 25 mEq/L (23-29); Chloride 108 mEq/L (98-107); Glucose 95 mg/dL (70-105); Osmolality,Calculated 292 (280-300); Potassium 4.3 mEq/L (3.5-5.1); Sodium 139 mEq/L (136-145); eGFR For African Americans > 60 (> 60); eGFR For Non-African Americans > 60 (> 60)
[2020-01-29] MEDS: Aspirin Enteric Coated 81 MG Tablet PO SCH (08:27)
[2020-01-29] MEDS: Lactobacillus 1 EACH CAP.SPRINK PO SCH (08:27)
[2020-01-29] MEDS: ARMODAFINIL 250 MG PO SCH (08:28)
[2020-01-29] MEDS: gemfibroziL 600 MG TABLET PO SCH ×2 (08:28→20:26)
[2020-01-29] MEDS: amLODIPine 5 MG TABLET PO SCH (08:28)
[2020-01-29] MEDS: Metoprolol XL (24 HR) Succ 50 MG TAB.ER.24H PO SCH (08:29)
[2020-01-29] MEDS: Gabapentin 100 MG CAPSULE PO SCH (17:16)
[2020-01-30] MEDS: Metoprolol XL (24 HR) Succ 50 MG TAB.ER.24H PO SCH (08:21)
[2020-01-30] MEDS: Lactobacillus 1 EACH CAP.SPRINK PO SCH (08:21)
[2020-01-30] MEDS: ARMODAFINIL 250 MG PO SCH (08:21)
[2020-01-30] MEDS: amLODIPine 5 MG TABLET PO SCH (08:21)
[2020-01-30] MEDS: gemfibroziL 600 MG TABLET PO SCH ×2 (08:21→20:21)
[2020-01-30] MEDS: Aspirin Enteric Coated 81 MG Tablet PO SCH (08:21)
[2020-01-30] MEDS: Budesonide/Formoterol 160/4.5 1 PUFF INH IH SCH ×2 (10:26→20:10)
[2020-01-30] MEDS: Acetaminophen 325 MG TABLET PO PRN (13:40)
[2020-01-30] MEDS: cloNIDine HCL 0.1 MG TABLET PO PRN (15:55)
[2020-01-30] MEDS: Gabapentin 100 MG CAPSULE PO SCH (17:17)
[2020-01-30] MEDS: *HR* OxyCODONE/APAP 5/325 TABLET PO PRN (20:36)
[2020-01-31] MEDS: Aspirin Enteric Coated 81 MG Tablet PO SCH (09:36)
[2020-01-31] MEDS: amLODIPine 5 MG TABLET PO SCH (09:36)
[2020-01-31] MEDS: Lactobacillus 1 EACH CAP.SPRINK PO SCH (09:36)
[2020-01-31] MEDS: ARMODAFINIL 250 MG PO SCH (09:36)
[2020-01-31] MEDS: Metoprolol XL (24 HR) Succ 50 MG TAB.ER.24H PO SCH (09:36)
[2020-01-31] MEDS: gemfibroziL 600 MG TABLET PO SCH ×2 (09:36→19:53)
[2020-01-31] MEDS: Budesonide/Formoterol 160/4.5 1 PUFF INH IH SCH ×2 (10:37→21:04)
[2020-01-31] MEDS: *HR* OxyCODONE/APAP 5/325 TABLET PO PRN (17:08)
[2020-01-31] MEDS: Gabapentin 100 MG CAPSULE PO SCH (17:08)
[2020-02-01] MEDS: gemfibroziL 600 MG TABLET PO SCH ×2 (09:08→19:38)
[2020-02-01] MEDS: Metoprolol XL (24 HR) Succ 50 MG TAB.ER.24H PO SCH (09:08)
[2020-02-01] MEDS: Aspirin Enteric Coated 81 MG Tablet PO SCH (09:08)
[2020-02-01] MEDS: Lactobacillus 1 EACH CAP.SPRINK PO SCH (09:08)
[2020-02-01] MEDS: amLODIPine 5 MG TABLET PO SCH (09:08)
[2020-02-01] MEDS: ARMODAFINIL 250 MG PO SCH (09:16)
[2020-02-01] MEDS: Budesonide/Formoterol 160/4.5 1 PUFF INH IH SCH ×2 (10:24→21:08)
[2020-02-01] MEDS: *HR* OxyCODONE/APAP 5/325 TABLET PO PRN (14:34)
[2020-02-01] MEDS: Gabapentin 100 MG CAPSULE PO SCH (17:19)
[2020-02-02 05:32] LABS: Hematocrit 26.3 % (35.3-44.9); Hemoglobin 8.6 g/dL (11.5-15.4); Mean Corpuscular HGB Conc 32.7 g/dL (31.6-35.5); Mean Corpuscular Hemoglobin 30.1 pg (28.0-33.3); Mean Platelet Volume 11.4 fL (9.4-12.4); Platelet Count 261 K/mcL (140-400); Red Blood Count 2.86 M/mcL (3.82-4.97); Red Cell Distribution Width 16.8 % (11.5-14.5); White Blood Count 4.7 K/mcL (4.3-11.1)
[2020-02-02 05:58] LABS: BUN/Creatinine Ratio 37 (6-26); Blood Urea Nitrogen 29 mg/dL (8-23); Carbon Dioxide 26 mEq/L (23-29); Chloride 104 mEq/L (98-107); Glucose 105 mg/dL (70-105); Osmolality,Calculated 294 (280-300); Potassium 3.9 mEq/L (3.5-5.1); Sodium 139 mEq/L (136-145); eGFR For African Americans > 60 (> 60); eGFR For Non-African Americans > 60 (> 60)
[2020-02-02] MEDS: Budesonide/Formoterol 160/4.5 1 PUFF INH IH SCH ×2 (08:18→21:19)
[2020-02-02] MEDS: Aspirin Enteric Coated 81 MG Tablet PO SCH (10:37)
[2020-02-02] MEDS: gemfibroziL 600 MG TABLET PO SCH ×2 (10:37→19:50)
[2020-02-02] MEDS: amLODIPine 5 MG TABLET PO SCH (10:37)
[2020-02-02] MEDS: Lactobacillus 1 EACH CAP.SPRINK PO SCH (10:37)
[2020-02-02] MEDS: Metoprolol XL (24 HR) Succ 50 MG TAB.ER.24H PO SCH (10:39)
[2020-02-02] MEDS: ARMODAFINIL 250 MG PO SCH (10:39)
[2020-02-02] MEDS: Gabapentin 100 MG CAPSULE PO SCH (19:50)
[2020-02-02] MEDS: *HR* OxyCODONE/APAP 5/325 TABLET PO PRN (19:53)
[2020-02-03] MEDS: Budesonide/Formoterol 160/4.5 1 PUFF INH IH SCH ×2 (08:54→21:57)
[2020-02-03] MEDS: Aspirin Enteric Coated 81 MG Tablet PO SCH (09:59)
[2020-02-03] MEDS: gemfibroziL 600 MG TABLET PO SCH ×2 (09:59→20:22)
[2020-02-03] MEDS: Lactobacillus 1 EACH CAP.SPRINK PO SCH (09:59)
[2020-02-03] MEDS: ARMODAFINIL 250 MG PO SCH (09:59)
[2020-02-03] MEDS: amLODIPine 5 MG TABLET PO SCH (09:59)
[2020-02-03] MEDS: Metoprolol XL (24 HR) Succ 50 MG TAB.ER.24H PO SCH (10:21)
[2020-02-03] MEDS: Gabapentin 100 MG CAPSULE PO SCH (18:29)
[2020-02-03] MEDS: Acetaminophen 325 MG TABLET PO PRN (20:21)
[2020-02-04] MEDS: Metoprolol XL (24 HR) Succ 50 MG TAB.ER.24H PO SCH (07:54)
[2020-02-04] MEDS: Aspirin Enteric Coated 81 MG Tablet PO SCH (07:54)
[2020-02-04] MEDS: amLODIPine 5 MG TABLET PO SCH (07:54)
[2020-02-04] MEDS: Lactobacillus 1 EACH CAP.SPRINK PO SCH (07:54)
[2020-02-04] MEDS: gemfibroziL 600 MG TABLET PO SCH ×2 (07:57→16:35)
[2020-02-04] MEDS: ARMODAFINIL 250 MG PO SCH (09:50)
[2020-02-04] MEDS: Budesonide/Formoterol 160/4.5 1 PUFF INH IH SCH ×2 (10:00→21:46)
[2020-02-04] MEDS: Gabapentin 100 MG CAPSULE PO SCH (16:35)
[2020-02-04] MEDS: *HR* OxyCODONE/APAP 5/325 TABLET PO PRN (21:13)
[2020-02-05] MEDS: Aspirin Enteric Coated 81 MG Tablet PO SCH (08:34)
[2020-02-05] MEDS: amLODIPine 5 MG TABLET PO SCH (08:34)
[2020-02-05] MEDS: ARMODAFINIL 250 MG PO SCH (08:35)
[2020-02-05] MEDS: Metoprolol XL (24 HR) Succ 50 MG TAB.ER.24H PO SCH (08:35)
[2020-02-05] MEDS: Lactobacillus 1 EACH CAP.SPRINK PO SCH (08:35)
[2020-02-05] MEDS: gemfibroziL 600 MG TABLET PO SCH ×2 (08:35→17:38)
[2020-02-05] MEDS: Budesonide/Formoterol 160/4.5 1 PUFF INH IH SCH ×2 (10:34→20:29)
[2020-02-05] MEDS: Gabapentin 100 MG CAPSULE PO SCH (17:38)
[2020-02-06] MEDS: ARMODAFINIL 250 MG PO SCH (09:27)
[2020-02-06] MEDS: amLODIPine 5 MG TABLET PO SCH (09:27)
[2020-02-06] MEDS: Lactobacillus 1 EACH CAP.SPRINK PO SCH (09:27)
[2020-02-06] MEDS: Metoprolol XL (24 HR) Succ 50 MG TAB.ER.24H PO SCH (09:28)
[2020-02-06] MEDS: Aspirin Enteric Coated 81 MG Tablet PO SCH (09:28)
[2020-02-06] MEDS: gemfibroziL 600 MG TABLET PO SCH ×2 (09:28→16:56)
[2020-02-06] MEDS: Budesonide/Formoterol 160/4.5 1 PUFF INH IH SCH ×2 (09:57→22:11)
[2020-02-06] MEDS: Gabapentin 100 MG CAPSULE PO SCH (16:56)
[2020-02-06] MEDS: *HR* OxyCODONE/APAP 5/325 TABLET PO PRN (20:19)
[2020-02-06] MEDS: cloNIDine HCL 0.1 MG TABLET PO PRN (20:19)
[2020-02-07 07:55] LABS: Alanine Aminotransferase 5 Units/L (7-52); BUN/Creatinine Ratio 35 (6-26); Blood Urea Nitrogen 31 mg/dL (8-23); Calcium 8.8 mg/dL (8.6-10.3); Carbon Dioxide 27 mEq/L (23-29); Chloride 104 mEq/L (98-107); Chol/HDL Ratio 3.4 (0-4.9); Cholesterol 156 mg/dL (< 200); Creatine Kinase 9 Units/L (30-223); Glucose 86 mg/dL (70-105); HDL Cholesterol 46 mg/dL (40-59); LDL Cholesterol,Calculated 104 mg/dL (< 100); Osmolality,Calculated 296 (280-300); Potassium 4.4 mEq/L (3.5-5.1); Sodium 140 mEq/L (136-145); Triglycerides 31 mg/dL (< 150); eGFR For African Americans > 60 (> 60); eGFR For Non-African Americans > 60 (> 60)
[2020-02-07 09:00] LABS: Estimated Average Glucose 114 mg/dl
[2020-02-07] MEDS: Aspirin Enteric Coated 81 MG Tablet PO SCH (09:11)
[2020-02-07] MEDS: ARMODAFINIL 250 MG PO SCH (09:11)
[2020-02-07] MEDS: amLODIPine 5 MG TABLET PO SCH (09:11)
[2020-02-07] MEDS: Lactobacillus 1 EACH CAP.SPRINK PO SCH (09:11)
[2020-02-07] MEDS: Metoprolol XL (24 HR) Succ 50 MG TAB.ER.24H PO SCH (09:11)
[2020-02-07] MEDS: gemfibroziL 600 MG TABLET PO SCH ×2 (09:12→17:23)
[2020-02-07] MEDS: Budesonide/Formoterol 160/4.5 1 PUFF INH IH SCH ×2 (09:50→22:17)
[2020-02-07 12:21] LABS: Creatinine,Urine 51 mg/dL; Microalbum/Creatinine Ratio,Ur 290 mcg/mg (Less than 30); Microalbumin,Urine 148 mg/L
[2020-02-07] MEDS: *HR* OxyCODONE/APAP 5/325 TABLET PO PRN (13:08)
[2020-02-07] MEDS: Gabapentin 100 MG CAPSULE PO SCH (17:23)
[2020-02-08] MEDS: Metoprolol XL (24 HR) Succ 50 MG TAB.ER.24H PO SCH (08:45)
[2020-02-08] MEDS: gemfibroziL 600 MG TABLET PO SCH ×2 (08:45→16:44)
[2020-02-08] MEDS: Lactobacillus 1 EACH CAP.SPRINK PO SCH (08:45)
[2020-02-08] MEDS: Aspirin Enteric Coated 81 MG Tablet PO SCH (08:45)
[2020-02-08] MEDS: amLODIPine 5 MG TABLET PO SCH (08:45)
[2020-02-08] MEDS: ARMODAFINIL 250 MG PO SCH (08:58)
[2020-02-08] MEDS: Budesonide/Formoterol 160/4.5 1 PUFF INH IH SCH ×2 (10:30→21:33)
[2020-02-08] MEDS: Gabapentin 100 MG CAPSULE PO SCH (16:44)
[2020-02-09] MEDS: Metoprolol XL (24 HR) Succ 50 MG TAB.ER.24H PO SCH (08:35)
[2020-02-09] MEDS: ARMODAFINIL 250 MG PO SCH (08:35)
[2020-02-09] MEDS: amLODIPine 5 MG TABLET PO SCH (08:35)
[2020-02-09] MEDS: Lactobacillus 1 EACH CAP.SPRINK PO SCH (08:35)
[2020-02-09] MEDS: gemfibroziL 600 MG TABLET PO SCH ×2 (08:35→17:55)
[2020-02-09] MEDS: Aspirin Enteric Coated 81 MG Tablet PO SCH (08:35)
[2020-02-09] MEDS: Budesonide/Formoterol 160/4.5 1 PUFF INH IH SCH ×2 (10:56→20:43)
[2020-02-09] MEDS: Gabapentin 100 MG CAPSULE PO SCH (17:55)
[2020-02-10] MEDS: Aspirin Enteric Coated 81 MG Tablet PO SCH (09:54)
[2020-02-10] MEDS: ARMODAFINIL 250 MG PO SCH (09:54)
[2020-02-10] MEDS: gemfibroziL 600 MG TABLET PO SCH ×2 (09:54→17:52)
[2020-02-10] MEDS: amLODIPine 5 MG TABLET PO SCH (09:54)
[2020-02-10] MEDS: Lactobacillus 1 EACH CAP.SPRINK PO SCH (09:55)
[2020-02-10] MEDS: Metoprolol XL (24 HR) Succ 50 MG TAB.ER.24H PO SCH (09:55)
[2020-02-10] MEDS: Budesonide/Formoterol 160/4.5 1 PUFF INH IH SCH ×2 (10:03→21:00)
[2020-02-10] MEDS: Gabapentin 100 MG CAPSULE PO SCH (17:53)
[2020-02-10] MEDS: *HR* OxyCODONE/APAP 5/325 TABLET PO PRN (21:55)
[2020-02-11] MEDS: gemfibroziL 600 MG TABLET PO SCH ×2 (08:54→17:21)
[2020-02-11] MEDS: Lactobacillus 1 EACH CAP.SPRINK PO SCH (08:54)
[2020-02-11] MEDS: amLODIPine 5 MG TABLET PO SCH (08:54)
[2020-02-11] MEDS: Metoprolol XL (24 HR) Succ 50 MG TAB.ER.24H PO SCH (08:54)
[2020-02-11] MEDS: ARMODAFINIL 250 MG PO SCH (08:54)
[2020-02-11] MEDS: Aspirin Enteric Coated 81 MG Tablet PO SCH (08:54)
[2020-02-11] MEDS: Budesonide/Formoterol 160/4.5 1 PUFF INH IH SCH ×2 (09:07→22:25)
[2020-02-11] MEDS: Gabapentin 100 MG CAPSULE PO SCH (17:21)
[2020-02-12 07:06] LABS: Basophils % 1.1 %; Eosinophils % 0.3 %; Hematocrit 29.2 % (35.3-44.9); Hemoglobin 9.3 g/dL (11.5-15.4); Immature Granulocytes % 0.3 % (0-4); Lymphocytes # 1.5 K/mcL (0.6-4.6); Mean Corpuscular HGB Conc 31.8 g/dL (31.6-35.5); Mean Corpuscular Hemoglobin 29.9 pg (28.0-33.3); Mean Corpuscular Volume 93.9 fL (83.0-100.0); Mean Platelet Volume 10.8 fL (9.4-12.4); Monocytes # 0.3 K/mcL (0.0-1.3); Monocytes % 7.2 %; Platelet Count 210 K/mcL (140-400); Red Blood Count 3.11 M/mcL (3.82-4.97); Red Cell Distribution Width 16.5 % (11.5-14.5); Segmented Neutrophils % 52.1 %; White Blood Count 3.8 K/mcL (4.3-11.1)
[2020-02-12] MEDS: Lactobacillus 1 EACH CAP.SPRINK PO SCH (08:16)
[2020-02-12] MEDS: gemfibroziL 600 MG TABLET PO SCH ×2 (08:16→16:44)
[2020-02-12] MEDS: Metoprolol XL (24 HR) Succ 50 MG TAB.ER.24H PO SCH (08:16)
[2020-02-12] MEDS: Aspirin Enteric Coated 81 MG Tablet PO SCH (08:16)
[2020-02-12] MEDS: amLODIPine 5 MG TABLET PO SCH (08:16)
[2020-02-12] MEDS: ARMODAFINIL 250 MG PO SCH (08:25)
[2020-02-12 08:33] LABS: BUN/Creatinine Ratio 34 (6-26); Blood Urea Nitrogen 29 mg/dL (8-23); Calcium 9.1 mg/dL (8.6-10.3); Carbon Dioxide 25 mEq/L (23-29); Chloride 109 mEq/L (98-107); Glucose 88 mg/dL (70-105); Osmolality,Calculated 297 (280-300); Potassium 4.4 mEq/L (3.5-5.1); Sodium 141 mEq/L (136-145); eGFR For African Americans > 60 (> 60); eGFR For Non-African Americans > 60 (> 60)
[2020-02-12] MEDS: Budesonide/Formoterol 160/4.5 1 PUFF INH IH SCH ×2 (09:23→22:16)
[2020-02-12] MEDS: Gabapentin 100 MG CAPSULE PO SCH (16:44)
[2020-02-13] MEDS: gemfibroziL 600 MG TABLET PO SCH ×2 (09:18→17:00)
[2020-02-13] MEDS: Aspirin Enteric Coated 81 MG Tablet PO SCH (09:18)
[2020-02-13] MEDS: Metoprolol XL (24 HR) Succ 50 MG TAB.ER.24H PO SCH (09:18)
[2020-02-13] MEDS: Lactobacillus 1 EACH CAP.SPRINK PO SCH (09:19)
[2020-02-13] MEDS: amLODIPine 5 MG TABLET PO SCH (09:19)
[2020-02-13] MEDS: ARMODAFINIL 250 MG PO SCH (09:28)
[2020-02-13] MEDS: Budesonide/Formoterol 160/4.5 1 PUFF INH IH SCH ×2 (10:35→21:53)
[2020-02-13] MEDS: Gabapentin 100 MG CAPSULE PO SCH (17:00)
[2020-02-14] MEDS: ARMODAFINIL 250 MG PO SCH (08:42)
[2020-02-14] MEDS: Metoprolol XL (24 HR) Succ 50 MG TAB.ER.24H PO SCH (08:43)
[2020-02-14] MEDS: Lactobacillus 1 EACH CAP.SPRINK PO SCH (08:43)
[2020-02-14] MEDS: gemfibroziL 600 MG TABLET PO SCH ×2 (08:43→16:41)
[2020-02-14] MEDS: Aspirin Enteric Coated 81 MG Tablet PO SCH (08:43)
[2020-02-14] MEDS: amLODIPine 5 MG TABLET PO SCH (08:43)
[2020-02-14] MEDS: Budesonide/Formoterol 160/4.5 1 PUFF INH IH SCH ×2 (10:11→22:09)
[2020-02-14] MEDS: Gabapentin 100 MG CAPSULE PO SCH (16:41)
[2020-02-15] MEDS: Lactobacillus 1 EACH CAP.SPRINK PO SCH (08:40)
[2020-02-15] MEDS: ARMODAFINIL 250 MG PO SCH (08:40)
[2020-02-15] MEDS: amLODIPine 5 MG TABLET PO SCH (08:41)
[2020-02-15] MEDS: Aspirin Enteric Coated 81 MG Tablet PO SCH (08:41)
[2020-02-15] MEDS: gemfibroziL 600 MG TABLET PO SCH ×2 (08:41→17:58)
[2020-02-15] MEDS: Metoprolol XL (24 HR) Succ 50 MG TAB.ER.24H PO SCH (08:49)
[2020-02-15 09:43] LABS: Bilirubin,Urine Negative (Negative); Blood,Urine Small (Negative); Clarity,Urine Turbid (Clear); Color,Urine Yellow (Yellow); Glucose,Urine (UA) Normal (Normal); Ketones,Urine Negative (Negative); Leukocyte Esterase,Urine Moderate (Negative); Nitrite,Urine Positive (Negative); Protein,Urine 100 mg/dL (Neg-Trace); Specific Gravity,Urine 1.025 (1.010-1.025); Urobilinogen,Urine Normal (Normal)
[2020-02-15 09:50] LABS: Bacteria,Urine Many per hpf (None-Few); Mucus,Urine Many per lpf (None-Few); Squamous Epithelial Cell,Urine Few per hpf (None-Few); WBC,Urine TNTC per hpf (0-3)
[2020-02-15] MEDS: Budesonide/Formoterol 160/4.5 1 PUFF INH IH SCH ×2 (10:20→21:54)
[2020-02-15] MEDS: Gabapentin 100 MG CAPSULE PO SCH (17:58)
[2020-02-16] MEDS: Aspirin Enteric Coated 81 MG Tablet PO SCH (08:05)
[2020-02-16] MEDS: amLODIPine 5 MG TABLET PO SCH (08:05)
[2020-02-16] MEDS: gemfibroziL 600 MG TABLET PO SCH ×2 (08:05→17:04)
[2020-02-16] MEDS: Lactobacillus 1 EACH CAP.SPRINK PO SCH (08:05)
[2020-02-16] MEDS: ARMODAFINIL 250 MG PO SCH (08:12)
[2020-02-16] MEDS: Metoprolol XL (24 HR) Succ 50 MG TAB.ER.24H PO SCH (08:13)
[2020-02-16] MEDS: Budesonide/Formoterol 160/4.5 1 PUFF INH IH SCH ×2 (09:27→22:43)
[2020-02-16] MEDS: Gabapentin 100 MG CAPSULE PO SCH (17:03)
[2020-02-17 06:54] VITALS: BP 140/68
[2020-02-17] MEDS: Aspirin Enteric Coated 81 MG Tablet PO SCH (07:52)
[2020-02-17] MEDS: gemfibroziL 600 MG TABLET PO SCH (07:52)
[2020-02-17] MEDS: Lactobacillus 1 EACH CAP.SPRINK PO SCH (07:52)
[2020-02-17] MEDS: amLODIPine 5 MG TABLET PO SCH (07:52)
[2020-02-17] MEDS: Metoprolol XL (24 HR) Succ 50 MG TAB.ER.24H PO SCH (08:04)
[2020-02-17] MEDS: ARMODAFINIL 250 MG PO SCH (08:04)
[2020-02-17] MEDS: Budesonide/Formoterol 160/4.5 1 PUFF INH IH SCH (09:10)
[2020-02-17 10:50] LABS: Hematocrit 33.5 % (35.3-44.9); Hemoglobin 10.9 g/dL (11.5-15.4); Mean Corpuscular HGB Conc 32.5 g/dL (31.6-35.5); Mean Corpuscular Hemoglobin 30.3 pg (28.0-33.3); Mean Corpuscular Volume 93.1 fL (83.0-100.0); Mean Platelet Volume 10.4 fL (9.4-12.4); Platelet Count 232 K/mcL (140-400); Red Cell Distribution Width 16.8 % (11.5-14.5)
[2020-02-17] MEDS ORDERED: Fosfomycin Tromethamine 3 GM Packet PO ONE (13:00)
== END 2020-02-17 16:53 | disposition home health service (06) | DRG 560 ==
LOC: INPPIK 11:44
PROVIDERS: ADMIT Family Medicine; ATTEND Family Medicine

== ENCOUNTER 2020-03-08 16:50 | Inpatient (IN) ==
[2020-03-08] MEDS ORDERED: 0.9 % Sodium Chloride 500 ML IVC ONE (17:10)
[2020-03-08] MEDS ORDERED: cefTRIAXone 2,000 MG in 0.9 % Sodium Chloride Mini Bag 100 ML IVPB ONE (17:11)
[2020-03-08] MEDS ORDERED: Ertapenem 1,000 MG in 0.9 % Sodium Chloride Mini Bag 100 ML IVPB ONE (17:14)
[2020-03-08 17:31] LABS: Bilirubin,Urine Negative (Negative); Blood,Urine Negative (Negative); Clarity,Urine Clear (Clear); Color,Urine Yellow (Yellow); Glucose,Urine (UA) Normal (Normal); Ketones,Urine Negative (Negative); Leukocyte Esterase,Urine Small (Negative); Nitrite,Urine Negative (Negative); Protein,Urine 30 mg/dL (Neg-Trace); Urobilinogen,Urine Normal (Normal)
[2020-03-08 17:38] LABS: Bacteria,Urine Few per hpf (None-Few); Mucus,Urine Few per lpf (None-Few)
[2020-03-08 17:52] LABS: Basophils % 0.3 %; Eosinophils # 0.4 K/mcL (0.0-0.6); Eosinophils % 6.1 %; Hematocrit 30.9 % (35.3-44.9); Hemoglobin 10.2 g/dL (11.5-15.4); Immature Granulocytes % 0.2 % (0-4); Lymphocytes # 1.7 K/mcL (0.6-4.6); Lymphocytes % 29.3 %; Mean Corpuscular Hemoglobin 30.4 pg (28.0-33.3); Mean Platelet Volume 10.1 fL (9.4-12.4); Monocytes # 0.3 K/mcL (0.0-1.3); Monocytes % 5.8 %; Neutrophils # 3.5 K/mcL (1.6-8.9); Platelet Count 253 K/mcL (140-400); Red Blood Count 3.36 M/mcL (3.82-4.97); Red Cell Distribution Width 16.4 % (11.5-14.5); Segmented Neutrophils % 58.3 %; White Blood Count 5.9 K/mcL (4.3-11.1)
[2020-03-08 18:08] LABS: BUN/Creatinine Ratio 34 (6-26); Blood Urea Nitrogen 27 mg/dL (8-23); Calcium 9.3 mg/dL (8.6-10.3); Carbon Dioxide 25 mEq/L (23-29); Chloride 100 mEq/L (98-107); Glucose 97 mg/dL (70-105); Osmolality,Calculated 287 (280-300); Potassium 4.6 mEq/L (3.5-5.1); Sodium 136 mEq/L (136-145); eGFR For African Americans > 60 (> 60); eGFR For Non-African Americans > 60 (> 60)
[2020-03-08] MEDS: 0.9 % Sodium Chloride 1,000 ML IVC SCH (18:35)
[2020-03-08] MEDS ORDERED: MOM Conc 10 ML UD.LIQ PO PRN (20:19)
[2020-03-08] MEDS ORDERED: Mag Hydrox/Al Hydrox/Simeth 30 ML UDC PO PRN (20:19)
[2020-03-08] MEDS ORDERED: Naloxone 0.4 MG/ML INJ IVP PRN (20:19)
[2020-03-08] MEDS ORDERED: Acetaminophen 325 MG TABLET PO PRN (20:19)
[2020-03-08] MEDS ORDERED: Ondansetron 4 MG/2 ML VIAL IVP PRN (20:19)
[2020-03-08] MEDS ORDERED: Albuterol 2.5 MG/3 ML NEBULIZER IH PRN (20:23)
[2020-03-08] MEDS ORDERED: cloNIDine HCL 0.1 MG TABLET PO PRN (20:25)
[2020-03-08] MEDS ORDERED: gemfibroziL 600 MG TABLET PO SCH (21:00)
[2020-03-08] MEDS: Budesonide/Formoterol 160/4.5 1 PUFF INH IH SCH (22:33)
[2020-03-09] MEDS: 0.9 % Sodium Chloride 1,000 ML IVC SCH ×3 (03:07→18:08)
[2020-03-09 05:21] LABS: Basophils % 0.3 %; Eosinophils # 0.3 K/mcL (0.0-0.6); Eosinophils % 3.9 %; Hematocrit 28.7 % (35.3-44.9); Hemoglobin 9.1 g/dL (11.5-15.4); Immature Granulocytes % 0.4 % (0-4); Lymphocytes # 0.4 K/mcL (0.6-4.6); Lymphocytes % 4.8 %; Mean Corpuscular HGB Conc 31.7 g/dL (31.6-35.5); Mean Corpuscular Hemoglobin 29.4 pg (28.0-33.3); Mean Corpuscular Volume 92.9 fL (83.0-100.0); Mean Platelet Volume 10.6 fL (9.4-12.4); Monocytes # 0.2 K/mcL (0.0-1.3); Monocytes % 2.9 %; Neutrophils # 6.8 K/mcL (1.6-8.9); Platelet Count 222 K/mcL (140-400); Red Blood Count 3.09 M/mcL (3.82-4.97); Red Cell Distribution Width 16.5 % (11.5-14.5); Segmented Neutrophils % 87.7 %; White Blood Count 7.7 K/mcL (4.3-11.1)
[2020-03-09 05:41] LABS: BUN/Creatinine Ratio 34 (6-26); Blood Urea Nitrogen 27 mg/dL (8-23); Calcium 8.4 mg/dL (8.6-10.3); Carbon Dioxide 26 mEq/L (23-29); Chloride 105 mEq/L (98-107); Sodium 139 mEq/L (136-145); eGFR For African Americans > 60 (> 60); eGFR For Non-African Americans > 60 (> 60)
[2020-03-09 07:04] LABS: Glucose 128 mg/dL (70-105); Osmolality,Calculated 295 (280-300)
[2020-03-09] MEDS: Metoprolol XL (24 HR) Succ 50 MG TAB.ER.24H PO SCH (09:23)
[2020-03-09] MEDS: amLODIPine 5 MG TABLET PO SCH (09:24)
[2020-03-09] MEDS: Aspirin Enteric Coated 81 MG Tablet PO SCH (09:24)
[2020-03-09] MEDS: gemfibroziL 600 MG TABLET PO SCH ×2 (09:24→17:18)
[2020-03-09] MEDS: Budesonide/Formoterol 160/4.5 1 PUFF INH IH SCH ×2 (10:37→20:44)
[2020-03-09] MEDS: Gabapentin 100 MG CAPSULE PO SCH (17:18)
[2020-03-09] MEDS: Ertapenem 1,000 MG in 0.9 % Sodium Chloride Mini Bag 100 ML IVPB SCH (17:19)
[2020-03-10 05:30] LABS: Basophils % 0.4 %; Eosinophils # 0.4 K/mcL (0.0-0.6); Eosinophils % 8.5 %; Hematocrit 26.9 % (35.3-44.9); Hemoglobin 8.6 g/dL (11.5-15.4); Immature Granulocytes % 0.2 % (0-4); Lymphocytes # 0.9 K/mcL (0.6-4.6); Lymphocytes % 18.4 %; Mean Corpuscular Volume 93.7 fL (83.0-100.0); Mean Platelet Volume 10.4 fL (9.4-12.4); Monocytes # 0.2 K/mcL (0.0-1.3); Monocytes % 5.2 %; Neutrophils # 3.1 K/mcL (1.6-8.9); Platelet Count 191 K/mcL (140-400); Red Blood Count 2.87 M/mcL (3.82-4.97); Red Cell Distribution Width 16.4 % (11.5-14.5); Segmented Neutrophils % 67.3 %; White Blood Count 4.6 K/mcL (4.3-11.1)
[2020-03-10 05:57] LABS: BUN/Creatinine Ratio 30 (6-26); Blood Urea Nitrogen 24 mg/dL (8-23); Calcium 8.6 mg/dL (8.6-10.3); Carbon Dioxide 26 mEq/L (23-29); Chloride 106 mEq/L (98-107); Glucose 104 mg/dL (70-105); Osmolality,Calculated 292 (280-300); Sodium 139 mEq/L (136-145); eGFR For African Americans > 60 (> 60); eGFR For Non-African Americans > 60 (> 60)
[2020-03-10] MEDS: gemfibroziL 600 MG TABLET PO SCH ×2 (07:42→17:42)
[2020-03-10] MEDS: Aspirin Enteric Coated 81 MG Tablet PO SCH (07:42)
[2020-03-10] MEDS: Metoprolol XL (24 HR) Succ 50 MG TAB.ER.24H PO SCH (07:42)
[2020-03-10] MEDS: amLODIPine 5 MG TABLET PO SCH (07:43)
[2020-03-10] MEDS: Budesonide/Formoterol 160/4.5 1 PUFF INH IH SCH ×2 (08:09→21:16)
[2020-03-10] MEDS: Gabapentin 100 MG CAPSULE PO SCH (17:42)
[2020-03-10] MEDS: Ertapenem 1,000 MG in 0.9 % Sodium Chloride Mini Bag 100 ML IVPB SCH (17:48)
[2020-03-11 07:18] LABS: Basophils % 0.7 %; Eosinophils # 0.5 K/mcL (0.0-0.6); Eosinophils % 10.2 %; Hematocrit 28.1 % (35.3-44.9); Immature Granulocytes % 0.4 % (0-4); Lymphocytes % 21.8 %; Mean Corpuscular Hemoglobin 29.8 pg (28.0-33.3); Mean Platelet Volume 11.5 fL (9.4-12.4); Monocytes # 0.3 K/mcL (0.0-1.3); Monocytes % 6.5 %; Neutrophils # 2.8 K/mcL (1.6-8.9); Platelet Count 224 K/mcL (140-400); Red Blood Count 3.02 M/mcL (3.82-4.97); Red Cell Distribution Width 16.5 % (11.5-14.5); Segmented Neutrophils % 60.4 %; White Blood Count 4.6 K/mcL (4.3-11.1)
[2020-03-11 07:47] LABS: BUN/Creatinine Ratio 39 (6-26); Blood Urea Nitrogen 28 mg/dL (8-23); Calcium 9.1 mg/dL (8.6-10.3); Carbon Dioxide 27 mEq/L (23-29); Chloride 106 mEq/L (98-107); Glucose 86 mg/dL (70-105); Osmolality,Calculated 295 (280-300); Potassium 4.2 mEq/L (3.5-5.1); Sodium 140 mEq/L (136-145); eGFR For African Americans > 60 (> 60); eGFR For Non-African Americans > 60 (> 60)
[2020-03-11] MEDS: Aspirin Enteric Coated 81 MG Tablet PO SCH (08:15)
[2020-03-11] MEDS: Metoprolol XL (24 HR) Succ 50 MG TAB.ER.24H PO SCH (08:15)
[2020-03-11] MEDS: gemfibroziL 600 MG TABLET PO SCH ×2 (08:15→17:20)
[2020-03-11] MEDS: amLODIPine 5 MG TABLET PO SCH (08:15)
[2020-03-11] MEDS: Budesonide/Formoterol 160/4.5 1 PUFF INH IH SCH ×2 (08:29→22:01)
[2020-03-11] MEDS: Ertapenem 1,000 MG in 0.9 % Sodium Chloride Mini Bag 100 ML IVPB SCH (17:20)
[2020-03-11] MEDS: Gabapentin 100 MG CAPSULE PO SCH (17:20)
[2020-03-12 06:22] LABS: Hematocrit 29.1 % (35.3-44.9); Hemoglobin 9.5 g/dL (11.5-15.4); Mean Corpuscular HGB Conc 32.6 g/dL (31.6-35.5); Mean Corpuscular Hemoglobin 29.9 pg (28.0-33.3); Mean Corpuscular Volume 91.5 fL (83.0-100.0); Platelet Count 214 K/mcL (140-400); Red Blood Count 3.18 M/mcL (3.82-4.97); Red Cell Distribution Width 16.4 % (11.5-14.5); White Blood Count 4.6 K/mcL (4.3-11.1)
[2020-03-12 06:43] VITALS: BP 168/60
[2020-03-12 06:47] LABS: BUN/Creatinine Ratio 34 (6-26); Blood Urea Nitrogen 26 mg/dL (8-23); Calcium 9.1 mg/dL (8.6-10.3); Carbon Dioxide 28 mEq/L (23-29); Chloride 104 mEq/L (98-107); Glucose 99 mg/dL (70-105); Osmolality,Calculated 293 (280-300); Potassium 4.2 mEq/L (3.5-5.1); Sodium 139 mEq/L (136-145); eGFR For African Americans > 60 (> 60); eGFR For Non-African Americans > 60 (> 60)
[2020-03-12] MEDS ORDERED: Amoxicillin/Clavulanate 500 MG TABLET PO SCH (08:00)
[2020-03-12] MEDS: Aspirin Enteric Coated 81 MG Tablet PO SCH (08:23)
[2020-03-12] MEDS: gemfibroziL 600 MG TABLET PO SCH (08:23)
[2020-03-12] MEDS: Metoprolol XL (24 HR) Succ 50 MG TAB.ER.24H PO SCH (08:23)
[2020-03-12] MEDS: amLODIPine 5 MG TABLET PO SCH (08:23)
[2020-03-12] MEDS: Budesonide/Formoterol 160/4.5 1 PUFF INH IH SCH (10:12)
[2020-03-12] MEDS ORDERED: Ertapenem 1,000 MG in 0.9 % Sodium Chloride Mini Bag 100 ML IVPB SCH (17:00)
== END 2020-03-12 15:05 | disposition home health service (06) | DRG 690 ==
LOC: EMEROOPIK 16:50 → INPPIK 16:50
PROVIDERS: ADMIT Family Medicine; ATTEND Family Medicine

== ENCOUNTER 2020-06-23 13:08 | Inpatient (IN) ==
[2020-06-23 14:23] LABS: Bilirubin,Urine Negative (Negative); Blood,Urine Negative (Negative); Clarity,Urine Slightly Cloudy (Clear); Glucose,Urine (UA) Normal (Normal); Ketones,Urine Negative (Negative); Leukocyte Esterase,Urine Large (Negative); Nitrite,Urine Negative (Negative); PH,Urine 6.5 pH Units (5.0-8.0); Protein,Urine 30 mg/dL (Neg-Trace); Specific Gravity,Urine 1.015 (1.010-1.025); Urobilinogen,Urine Normal (Normal)
[2020-06-23 14:28] LABS: Color,Urine Light Yellow (Yellow)
[2020-06-23 14:29] LABS: Bacteria,Urine Many per hpf (None-Few); RBC,Urine 0-3 per hpf (0-3); Squamous Epithelial Cell,Urine Few per hpf (None-Few); WBC,Urine 50-100 per hpf (0-3)
[2020-06-23] MEDS ORDERED: Piperacillin/Tazobactam 3.375 GM in 0.9 % Sodium Chloride Mini Bag 100 ML IVPB ONE (14:49)
[2020-06-23 15:03] LABS: Basophils % 0.3 %; Eosinophils # 0.1 K/mcL (0.0-0.6); Eosinophils % 2.1 %; Hematocrit 31.7 % (35.3-44.9); Hemoglobin 10.1 g/dL (11.5-15.4); Immature Granulocytes % 0.5 % (0-4); Lymphocytes # 1.2 K/mcL (0.6-4.6); Lymphocytes % 20.8 %; Mean Corpuscular HGB Conc 31.9 g/dL (31.6-35.5); Mean Corpuscular Hemoglobin 29.4 pg (28.0-33.3); Mean Corpuscular Volume 92.4 fL (83.0-100.0); Monocytes # 0.2 K/mcL (0.0-1.3); Monocytes % 3.4 %; Neutrophils # 4.3 K/mcL (1.6-8.9); Platelet Count 229 K/mcL (140-400); Red Blood Count 3.43 M/mcL (3.82-4.97); Segmented Neutrophils % 72.9 %; White Blood Count 5.8 K/mcL (4.3-11.1)
[2020-06-23 15:18] LABS: BUN/Creatinine Ratio 29 (6-26); Blood Urea Nitrogen 24 mg/dL (8-23); Calcium 8.9 mg/dL (8.6-10.3); Carbon Dioxide 25 mEq/L (23-29); Chloride 104 mEq/L (98-107); Glucose 107 mg/dL (70-105); Osmolality,Calculated 293 (280-300); Potassium 4.8 mEq/L (3.5-5.1); Sodium 139 mEq/L (136-145); eGFR For African Americans > 60 (> 60); eGFR For Non-African Americans > 60 (> 60)
[2020-06-23] MEDS ORDERED: Naloxone 0.4 MG/ML INJ IVP PRN (15:46)
[2020-06-23] MEDS ORDERED: Ondansetron 4 MG/2 ML VIAL IVP PRN (15:46)
[2020-06-23] MEDS ORDERED: Acetaminophen 325 MG TABLET PO PRN (15:46)
[2020-06-23] MEDS: Gabapentin 100 MG CAPSULE PO SCH (17:48)
[2020-06-23] MEDS: gemfibroziL 600 MG TABLET PO SCH (17:48)
[2020-06-23] MEDS: 0.9 % Sodium Chloride 1,000 ML IVC SCH (18:14)
[2020-06-23] MEDS: Budesonide/Formoterol 160/4.5 1 PUFF INH IH SCH (21:54)
[2020-06-23] MEDS: Piperacillin/Tazobactam 3.375 GM in 0.9 % Sodium Chloride Mini Bag 100 ML IVPB SCH (23:47)
[2020-06-24] MEDS: 0.9 % Sodium Chloride 1,000 ML IVC SCH (05:48)
[2020-06-24 07:27] LABS: Hematocrit 29.4 % (35.3-44.9); Hemoglobin 9.2 g/dL (11.5-15.4); Mean Corpuscular HGB Conc 31.3 g/dL (31.6-35.5); Mean Corpuscular Hemoglobin 29.3 pg (28.0-33.3); Mean Corpuscular Volume 93.6 fL (83.0-100.0); Mean Platelet Volume 10.7 fL (9.4-12.4); Platelet Count 216 K/mcL (140-400); Red Blood Count 3.14 M/mcL (3.82-4.97); Red Cell Distribution Width 17.2 % (11.5-14.5); White Blood Count 4.5 K/mcL (4.3-11.1)
[2020-06-24] MEDS: Ascorbic Acid 500 MG TABLET PO SCH (08:16)
[2020-06-24] MEDS: gemfibroziL 600 MG TABLET PO SCH ×2 (08:16→17:21)
[2020-06-24] MEDS: Aspirin Enteric Coated 81 MG Tablet PO SCH (08:16)
[2020-06-24] MEDS: Metoprolol XL (24 HR) Succ 50 MG TAB.ER.24H PO SCH (08:16)
[2020-06-24] MEDS: NUVIGIL 250 MG PO SCH (08:17)
[2020-06-24] MEDS: Cholecalciferol (D-3) 1,000 UNIT (25MCG) TABLET PO SCH (08:17)
[2020-06-24] MEDS: amLODIPine 5 MG TABLET PO SCH (08:17)
[2020-06-24] MEDS: Piperacillin/Tazobactam 3.375 GM in 0.9 % Sodium Chloride Mini Bag 100 ML IVPB SCH ×2 (08:18→15:20)
[2020-06-24 08:35] LABS: BUN/Creatinine Ratio 26 (6-26); Blood Urea Nitrogen 24 mg/dL (8-23); Calcium 8.4 mg/dL (8.6-10.3); Carbon Dioxide 28 mEq/L (23-29); Chloride 108 mEq/L (98-107); Glucose 91 mg/dL (70-105); Magnesium 1.7 mg/dL (1.6-2.6); Osmolality,Calculated 300 (280-300); Potassium 3.9 mEq/L (3.5-5.1); Sodium 143 mEq/L (136-145); eGFR For African Americans > 60 (> 60); eGFR For Non-African Americans 56 (> 60)
[2020-06-24] MEDS: LUTEIN PO SCH (09:47)
[2020-06-24] MEDS: ZEAXANTHIN PO SCH (09:47)
[2020-06-24] MEDS: Budesonide/Formoterol 160/4.5 1 PUFF INH IH SCH ×2 (10:31→21:05)
[2020-06-24] MEDS ORDERED: *HR* Dextrose 50 % in Water (Vial) 50 ML VIAL IVP PRN (11:25)
[2020-06-24] MEDS ORDERED: D5% in Water 1,000 ML IVC PRN (11:25)
[2020-06-24] MEDS ORDERED: Dextrose Gel 15 GM/37.5 ML TUBE PO PRN ×2 (11:25)
[2020-06-24] MEDS: Insulin LISPRO 300 UNITS/3 ML VIAL SQ SCH ×2 (12:21→17:21)
[2020-06-24] MEDS: Gabapentin 100 MG CAPSULE PO SCH (17:21)
[2020-06-25] MEDS: Piperacillin/Tazobactam 3.375 GM in 0.9 % Sodium Chloride Mini Bag 100 ML IVPB SCH ×2 (00:59→08:33)
[2020-06-25 06:46] VITALS: BP 176/71
[2020-06-25] MEDS: gemfibroziL 600 MG TABLET PO SCH (08:33)
[2020-06-25] MEDS: amLODIPine 5 MG TABLET PO SCH (08:33)
[2020-06-25] MEDS: Ascorbic Acid 500 MG TABLET PO SCH (08:33)
[2020-06-25] MEDS: NUVIGIL 250 MG PO SCH (08:33)
[2020-06-25] MEDS: Aspirin Enteric Coated 81 MG Tablet PO SCH (08:34)
[2020-06-25] MEDS: Metoprolol XL (24 HR) Succ 50 MG TAB.ER.24H PO SCH (08:34)
[2020-06-25] MEDS: LUTEIN PO SCH (08:34)
[2020-06-25] MEDS: Insulin LISPRO 300 UNITS/3 ML VIAL SQ SCH ×2 (08:34→11:23)
[2020-06-25] MEDS: ZEAXANTHIN PO SCH (08:34)
[2020-06-25] MEDS: Cholecalciferol (D-3) 1,000 UNIT (25MCG) TABLET PO SCH (08:34)
[2020-06-25] MEDS: Budesonide/Formoterol 160/4.5 1 PUFF INH IH SCH (11:12)
== END 2020-06-25 16:40 | disposition home health service (06) | DRG 690 ==
LOC: INPPIK 13:08 → EMEROOPIK 13:08 → INPPIK 16:28
PROVIDERS: ADMIT Family Medicine; ATTEND Family Medicine

== ENCOUNTER 2020-08-07 12:23 | Inpatient (IN) ==
[2020-08-07 12:57] LABS: Bilirubin,Urine Negative (Negative); Blood,Urine Large (Negative); Clarity,Urine Cloudy (Clear); Color,Urine Red (Yellow); Glucose,Urine (UA) Normal (Normal); Ketones,Urine Negative (Negative); Leukocyte Esterase,Urine Moderate (Negative); Nitrite,Urine Negative (Negative); Protein,Urine 100 mg/dL (Neg-Trace); Specific Gravity,Urine 1.015 (1.010-1.025); Urobilinogen,Urine Normal (Normal)
[2020-08-07 13:05] LABS: Bacteria,Urine Few per hpf (None-Few); RBC,Urine TNTC per hpf (0-3); Squamous Epithelial Cell,Urine Few per hpf (None-Few); WBC,Urine TNTC per hpf (0-3)
[2020-08-07] MEDS ORDERED: 0.9 % Sodium Chloride 500 ML IVC ONE (13:11)
[2020-08-07] MEDS ORDERED: Cefepime HCl 2,000 MG in 0.9 % Sodium Chloride Mini Bag 100 ML IVPB ONE (13:11)
[2020-08-07 14:05] LABS: Basophils % 0.6 %; Eosinophils # 0.1 K/mcL (0.0-0.6); Eosinophils % 0.9 %; Hematocrit 32.2 % (35.3-44.9); Hemoglobin 10.1 g/dL (11.5-15.4); Immature Granulocytes % 0.3 % (0-4); Lymphocytes # 1.4 K/mcL (0.6-4.6); Lymphocytes % 20.1 %; Mean Corpuscular HGB Conc 31.4 g/dL (31.6-35.5); Mean Corpuscular Hemoglobin 29.1 pg (28.0-33.3); Mean Corpuscular Volume 92.8 fL (83.0-100.0); Monocytes # 0.3 K/mcL (0.0-1.3); Monocytes % 4.5 %; Platelet Count 311 K/mcL (140-400); Red Blood Count 3.47 M/mcL (3.82-4.97); Red Cell Distribution Width 17.2 % (11.5-14.5); Segmented Neutrophils % 73.6 %; White Blood Count 6.8 K/mcL (4.3-11.1)
[2020-08-07 14:23] LABS: BUN/Creatinine Ratio 25 (6-26); Blood Urea Nitrogen 21 mg/dL (8-23); Calcium 9.2 mg/dL (8.6-10.3); Carbon Dioxide 28 mEq/L (23-29); Chloride 102 mEq/L (98-107); Glucose 97 mg/dL (70-105); Osmolality,Calculated 291 (280-300); Potassium 4.1 mEq/L (3.5-5.1); Sodium 139 mEq/L (136-145); eGFR For African Americans > 60 (> 60); eGFR For Non-African Americans > 60 (> 60)
[2020-08-07] MEDS: 0.9 % Sodium Chloride 1,000 ML IVC SCH (14:42)
[2020-08-07] MEDS ORDERED: Acetaminophen 325 MG TABLET PO PRN (15:09)
[2020-08-07] MEDS ORDERED: Mag Hydrox/Al Hydrox/Simeth 30 ML UDC PO PRN (15:09)
[2020-08-07] MEDS ORDERED: Naloxone 0.4 MG/ML INJ IVP PRN (15:09)
[2020-08-07] MEDS ORDERED: Ondansetron 4 MG/2 ML VIAL IVP PRN (15:09)
[2020-08-07] MEDS ORDERED: MOM Conc 10 ML UD.LIQ PO PRN (15:09)
[2020-08-07] MEDS: Gabapentin 100 MG CAPSULE PO SCH (16:42)
[2020-08-07] MEDS: Budesonide/Formoterol 160/4.5 1 PUFF INH IH SCH (22:10)
[2020-08-07] MEDS ORDERED: 0.9 % Sodium Chloride Mini Bag 100 ML ONE (23:29)
[2020-08-08] MEDS: gemfibroziL 600 MG TABLET PO SCH ×3 (00:50→21:13)
[2020-08-08] MEDS: Cefepime HCl 1,000 MG in 0.9 % Sodium Chloride Mini Bag 100 ML IVPB SCH ×3 (00:52→16:25)
[2020-08-08] MEDS: 0.9 % Sodium Chloride 1,000 ML IVC SCH ×2 (01:01→10:23)
[2020-08-08 06:31] LABS: Basophils % 0.7 %; Eosinophils # 0.1 K/mcL (0.0-0.6); Eosinophils % 1.7 %; Hematocrit 28.9 % (35.3-44.9); Immature Granulocytes % 0.2 % (0-4); Lymphocytes # 1.3 K/mcL (0.6-4.6); Lymphocytes % 24.9 %; Mean Corpuscular HGB Conc 31.1 g/dL (31.6-35.5); Mean Corpuscular Hemoglobin 29.4 pg (28.0-33.3); Mean Corpuscular Volume 94.4 fL (83.0-100.0); Mean Platelet Volume 11.3 fL (9.4-12.4); Monocytes # 0.3 K/mcL (0.0-1.3); Monocytes % 4.6 %; Neutrophils # 3.7 K/mcL (1.6-8.9); Platelet Count 277 K/mcL (140-400); Red Blood Count 3.06 M/mcL (3.82-4.97); Red Cell Distribution Width 17.2 % (11.5-14.5); Segmented Neutrophils % 67.9 %; White Blood Count 5.4 K/mcL (4.3-11.1)
[2020-08-08 06:52] LABS: BUN/Creatinine Ratio 24 (6-26); Blood Urea Nitrogen 21 mg/dL (8-23); Carbon Dioxide 25 mEq/L (23-29); Chloride 110 mEq/L (98-107); Glucose 102 mg/dL (70-105); Osmolality,Calculated 297 (280-300); Potassium 3.9 mEq/L (3.5-5.1); Sodium 142 mEq/L (136-145); eGFR For African Americans > 60 (> 60); eGFR For Non-African Americans > 60 (> 60)
[2020-08-08] MEDS: Budesonide/Formoterol 160/4.5 1 PUFF INH IH SCH ×2 (08:34→22:21)
[2020-08-08] MEDS: Ascorbic Acid 500 MG TABLET PO SCH (08:39)
[2020-08-08] MEDS: Cholecalciferol (D-3) 1,000 UNIT (25MCG) TABLET PO SCH (08:39)
[2020-08-08] MEDS: Lactobacillus 1 EACH CAP.SPRINK PO SCH (08:39)
[2020-08-08] MEDS: Aspirin Enteric Coated 81 MG Tablet PO SCH (08:39)
[2020-08-08] MEDS: amLODIPine 5 MG TABLET PO SCH (08:40)
[2020-08-08] MEDS: (Armodafinil [Nuvigil] 250 MG) PO SCH ×2 (08:46→10:21)
[2020-08-08] MEDS: LUTEIN PO SCH (08:47)
[2020-08-08] MEDS: ZEAXANTHIN PO SCH (08:47)
[2020-08-08] MEDS ORDERED: Metoprolol XL (24 HR) Succ 50 MG TAB.ER.24H PO SCH (09:00)
[2020-08-08] MEDS ORDERED: Metoprolol XL (24 HR) Succ 25 MG TAB.ER.24H PO ONE (11:49)
[2020-08-08] MEDS: Gabapentin 100 MG CAPSULE PO SCH (17:14)
[2020-08-09] MEDS: Cefepime HCl 1,000 MG in 0.9 % Sodium Chloride Mini Bag 100 ML IVPB SCH ×2 (00:14→08:30)
[2020-08-09 05:46] LABS: Basophils # 0.1 K/mcL (0.0-0.2); Basophils % 0.8 %; Eosinophils # 0.1 K/mcL (0.0-0.6); Eosinophils % 1.4 %; Hematocrit 27.9 % (35.3-44.9); Hemoglobin 8.6 g/dL (11.5-15.4); Immature Granulocytes % 0.5 % (0-4); Lymphocytes # 1.4 K/mcL (0.6-4.6); Mean Corpuscular HGB Conc 30.8 g/dL (31.6-35.5); Mean Corpuscular Volume 93.9 fL (83.0-100.0); Mean Platelet Volume 11.1 fL (9.4-12.4); Monocytes # 0.3 K/mcL (0.0-1.3); Monocytes % 5.1 %; Neutrophils # 4.4 K/mcL (1.6-8.9); Platelet Count 248 K/mcL (140-400); Red Blood Count 2.97 M/mcL (3.82-4.97); Red Cell Distribution Width 17.3 % (11.5-14.5); Segmented Neutrophils % 70.2 %; White Blood Count 6.3 K/mcL (4.3-11.1)
[2020-08-09 06:07] LABS: BUN/Creatinine Ratio 28 (6-26); Blood Urea Nitrogen 22 mg/dL (8-23); Calcium 8.3 mg/dL (8.6-10.3); Carbon Dioxide 23 mEq/L (23-29); Chloride 109 mEq/L (98-107); Glucose 106 mg/dL (70-105); Osmolality,Calculated 294 (280-300); Sodium 140 mEq/L (136-145); eGFR For African Americans > 60 (> 60); eGFR For Non-African Americans > 60 (> 60)
[2020-08-09] MEDS: Lactobacillus 1 EACH CAP.SPRINK PO SCH (08:30)
[2020-08-09] MEDS: Aspirin Enteric Coated 81 MG Tablet PO SCH (08:31)
[2020-08-09] MEDS: Cholecalciferol (D-3) 1,000 UNIT (25MCG) TABLET PO SCH (08:31)
[2020-08-09] MEDS: amLODIPine 5 MG TABLET PO SCH (08:31)
[2020-08-09] MEDS: gemfibroziL 600 MG TABLET PO SCH ×2 (08:31→23:15)
[2020-08-09] MEDS: Ascorbic Acid 500 MG TABLET PO SCH (08:31)
[2020-08-09] MEDS: ZEAXANTHIN PO SCH (08:32)
[2020-08-09] MEDS: LUTEIN PO SCH (08:32)
[2020-08-09] MEDS: (Armodafinil [Nuvigil] 250 MG) PO SCH (08:39)
[2020-08-09] MEDS ORDERED: Metoprolol XL (24 HR) Succ 25 MG TAB.ER.24H PO SCH (09:00)
[2020-08-09] MEDS: Budesonide/Formoterol 160/4.5 1 PUFF INH IH SCH ×2 (10:46→21:14)
[2020-08-09] MEDS: Gabapentin 100 MG CAPSULE PO SCH (16:34)
[2020-08-09] MEDS: Piperacillin/Tazobactam 3.375 GM in 0.9 % Sodium Chloride Mini Bag 100 ML IVPB SCH (18:00)
[2020-08-09] MEDS ORDERED: methylPREDNISolone 125 MG/2 ML VIAL IVP ONE (22:20)
[2020-08-09] MEDS ORDERED: Ipratropium/Albuterol Neb 3 ML IH PRN (22:21)
[2020-08-09] MEDS ORDERED: Furosemide 20 MG/2 ML VIAL IVP ONE (23:27)
[2020-08-10] MEDS: Piperacillin/Tazobactam 3.375 GM in 0.9 % Sodium Chloride Mini Bag 100 ML IVPB SCH ×2 (00:04→08:17)
[2020-08-10 07:12] LABS: Basophils % 0.4 %; Hematocrit 30.2 % (35.3-44.9); Hemoglobin 9.4 g/dL (11.5-15.4); Immature Granulocytes % 0.6 % (0-4); Lymphocytes # 0.5 K/mcL (0.6-4.6); Lymphocytes % 5.6 %; Mean Corpuscular HGB Conc 31.1 g/dL (31.6-35.5); Mean Corpuscular Hemoglobin 28.9 pg (28.0-33.3); Mean Corpuscular Volume 92.9 fL (83.0-100.0); Mean Platelet Volume 11.4 fL (9.4-12.4); Monocytes # 0.1 K/mcL (0.0-1.3); Neutrophils # 8.2 K/mcL (1.6-8.9); Platelet Count 246 K/mcL (140-400); Red Blood Count 3.25 M/mcL (3.82-4.97); Red Cell Distribution Width 16.9 % (11.5-14.5); Segmented Neutrophils % 92.4 %; White Blood Count 8.9 K/mcL (4.3-11.1)
[2020-08-10 07:42] LABS: BUN/Creatinine Ratio 24 (6-26); Blood Urea Nitrogen 24 mg/dL (8-23); Calcium 9.1 mg/dL (8.6-10.3); Carbon Dioxide 23 mEq/L (23-29); Chloride 103 mEq/L (98-107); Glucose 178 mg/dL (70-105); Osmolality,Calculated 294 (280-300); Potassium 4.3 mEq/L (3.5-5.1); Sodium 138 mEq/L (136-145); eGFR For African Americans > 60 (> 60); eGFR For Non-African Americans 53 (> 60)
[2020-08-10] MEDS: Lactobacillus 1 EACH CAP.SPRINK PO SCH (08:19)
[2020-08-10] MEDS: gemfibroziL 600 MG TABLET PO SCH ×2 (08:19→22:49)
[2020-08-10] MEDS: amLODIPine 5 MG TABLET PO SCH (08:20)
[2020-08-10] MEDS: Ascorbic Acid 500 MG TABLET PO SCH (08:21)
[2020-08-10] MEDS: Aspirin Enteric Coated 81 MG Tablet PO SCH (08:22)
[2020-08-10] MEDS: ZEAXANTHIN PO SCH (08:22)
[2020-08-10] MEDS: LUTEIN PO SCH (08:22)
[2020-08-10] MEDS: Cholecalciferol (D-3) 1,000 UNIT (25MCG) TABLET PO SCH (08:22)
[2020-08-10] MEDS: (Armodafinil [Nuvigil] 250 MG) PO SCH ×2 (08:23→09:28)
[2020-08-10] MEDS: Metoprolol XL (24 HR) Succ 50 MG TAB.ER.24H PO SCH (08:39)
[2020-08-10] MEDS ORDERED: Metoprolol XL (24 HR) Succ 50 MG TAB.ER.24H PO SCH (09:00)
[2020-08-10] MEDS: Budesonide/Formoterol 160/4.5 1 PUFF INH IH SCH ×2 (09:43→21:31)
[2020-08-10] MEDS ORDERED: Furosemide 20 MG/2 ML VIAL IVP ONE (13:23)
[2020-08-10] MEDS: *HR* LORazepam 0.5 MG TABLET PO PRN (14:38)
[2020-08-10] MEDS: Ertapenem 1,000 MG in 0.9 % Sodium Chloride Mini Bag 100 ML IVPB SCH (14:38)
[2020-08-10] MEDS: Gabapentin 100 MG CAPSULE PO SCH (17:43)
[2020-08-11] MEDS: MethylPREDNISolone 40 MG/ML VIAL IVP SCH ×3 (00:24→14:25)
[2020-08-11] MEDS ORDERED: Isovue-370 500 ML BOTTLE IVP ONE (07:27)
[2020-08-11] MEDS: Ertapenem 1,000 MG in 0.9 % Sodium Chloride Mini Bag 100 ML IVPB SCH (08:31)
[2020-08-11] MEDS: gemfibroziL 600 MG TABLET PO SCH ×2 (08:33→20:40)
[2020-08-11] MEDS: Lactobacillus 1 EACH CAP.SPRINK PO SCH (08:33)
[2020-08-11] MEDS: Cholecalciferol (D-3) 1,000 UNIT (25MCG) TABLET PO SCH (08:33)
[2020-08-11] MEDS: amLODIPine 5 MG TABLET PO SCH (08:33)
[2020-08-11] MEDS: Ascorbic Acid 500 MG TABLET PO SCH (08:33)
[2020-08-11] MEDS: Aspirin Enteric Coated 81 MG Tablet PO SCH (08:33)
[2020-08-11] MEDS: Metoprolol XL (24 HR) Succ 50 MG TAB.ER.24H PO SCH (08:33)
[2020-08-11] MEDS: (Armodafinil [Nuvigil] 250 MG) PO SCH (08:35)
[2020-08-11] MEDS: LUTEIN PO SCH (08:36)
[2020-08-11] MEDS: ZEAXANTHIN PO SCH (08:36)
[2020-08-11] MEDS: Budesonide/Formoterol 160/4.5 1 PUFF INH IH SCH ×2 (09:46→21:49)
[2020-08-11] MEDS: Gabapentin 100 MG CAPSULE PO SCH (17:40)
[2020-08-11] MEDS: *HR* LORazepam 0.5 MG TABLET PO PRN (20:46)
[2020-08-12 05:24] LABS: Hematocrit 28.7 % (35.3-44.9); Hemoglobin 8.9 g/dL (11.5-15.4); Mean Corpuscular Volume 93.5 fL (83.0-100.0); Mean Platelet Volume 10.5 fL (9.4-12.4); Platelet Count 211 K/mcL (140-400); Red Blood Count 3.07 M/mcL (3.82-4.97); Red Cell Distribution Width 17.2 % (11.5-14.5)
[2020-08-12] MEDS ORDERED: *HR* Enoxaparin 30 MG/0.3 ML SYRINGE SQ SCH (06:00)
[2020-08-12] MEDS: Budesonide/Formoterol 160/4.5 1 PUFF INH IH SCH (07:56)
[2020-08-12 07:58] LABS: BUN/Creatinine Ratio 34 (6-26); Blood Urea Nitrogen 35 mg/dL (8-23); Calcium 8.9 mg/dL (8.6-10.3); Carbon Dioxide 26 mEq/L (23-29); Chloride 105 mEq/L (98-107); Glucose 108 mg/dL (70-105); Osmolality,Calculated 299 (280-300); Sodium 140 mEq/L (136-145); eGFR For African Americans > 60 (> 60); eGFR For Non-African Americans 51 (> 60)
[2020-08-12] MEDS: Ertapenem 1,000 MG in 0.9 % Sodium Chloride Mini Bag 100 ML IVPB SCH (08:59)
[2020-08-12] MEDS: Lactobacillus 1 EACH CAP.SPRINK PO SCH (08:59)
[2020-08-12] MEDS: Cholecalciferol (D-3) 1,000 UNIT (25MCG) TABLET PO SCH (09:00)
[2020-08-12] MEDS: Metoprolol XL (24 HR) Succ 50 MG TAB.ER.24H PO SCH (09:00)
[2020-08-12] MEDS: amLODIPine 5 MG TABLET PO SCH (09:00)
[2020-08-12] MEDS: gemfibroziL 600 MG TABLET PO SCH (09:00)
[2020-08-12] MEDS: Aspirin Enteric Coated 81 MG Tablet PO SCH (09:02)
[2020-08-12] MEDS: Ascorbic Acid 500 MG TABLET PO SCH (09:03)
[2020-08-12] MEDS: LUTEIN PO SCH (09:03)
[2020-08-12] MEDS: ZEAXANTHIN PO SCH (09:03)
[2020-08-12 14:59] VITALS: BP 126/81
[2020-08-12] MEDS: Gabapentin 100 MG CAPSULE PO SCH (16:33)
[2020-08-13] MEDS ORDERED: Ertapenem 500 MG in 0.9 % Sodium Chloride Mini Bag 100 ML IVPB SCH (09:00)
== END 2020-08-12 17:17 | disposition other institution (70) | DRG 690 ==
LOC: EMEROOPIK 12:23 → INPPIK 12:23
PROVIDERS: ADMIT Family Medicine; ATTEND Family Medicine

== ENCOUNTER 2020-08-10 16:20 | Inpatient (IN) ==
[2020-08-12] MEDS ORDERED: Ondansetron ODT 4 MG TAB.RAPDIS SL PRN (15:44)
[2020-08-12] MEDS ORDERED: gemfibroziL 600 MG TABLET PO SCH (21:00)
[2020-08-12] MEDS: Budesonide/Formoterol 160/4.5 1 PUFF INH IH SCH (21:45)
[2020-08-13] MEDS: *HR* Enoxaparin 30 MG/0.3 ML SYRINGE SQ SCH (05:10)
[2020-08-13 06:57] LABS: Basophils % 0.8 %; Eosinophils # 0.1 K/mcL (0.0-0.6); Hematocrit 30.7 % (35.3-44.9); Hemoglobin 9.6 g/dL (11.5-15.4); Immature Granulocytes % 0.5 % (0-4); Lymphocytes % 25.4 %; Mean Corpuscular HGB Conc 31.3 g/dL (31.6-35.5); Mean Corpuscular Hemoglobin 29.3 pg (28.0-33.3); Mean Corpuscular Volume 93.6 fL (83.0-100.0); Mean Platelet Volume 11.2 fL (9.4-12.4); Monocytes # 0.2 K/mcL (0.0-1.3); Monocytes % 5.5 %; Neutrophils # 2.6 K/mcL (1.6-8.9); Platelet Count 239 K/mcL (140-400); Red Blood Count 3.28 M/mcL (3.82-4.97); Red Cell Distribution Width 17.1 % (11.5-14.5); Segmented Neutrophils % 64.8 %
[2020-08-13 07:15] LABS: BUN/Creatinine Ratio 38 (6-26); Blood Urea Nitrogen 30 mg/dL (8-23); Calcium 9.3 mg/dL (8.6-10.3); Carbon Dioxide 29 mEq/L (23-29); Chloride 104 mEq/L (98-107); Glucose 112 mg/dL (70-105); Osmolality,Calculated 295 (280-300); Potassium 3.9 mEq/L (3.5-5.1); Sodium 139 mEq/L (136-145); eGFR For African Americans > 60 (> 60); eGFR For Non-African Americans > 60 (> 60)
[2020-08-13] MEDS: Cholecalciferol (D-3) 1,000 UNIT (25MCG) TABLET PO SCH (08:00)
[2020-08-13] MEDS: Aspirin Enteric Coated 81 MG Tablet PO SCH (08:02)
[2020-08-13] MEDS: Metoprolol XL (24 HR) Succ 50 MG TAB.ER.24H PO SCH (08:02)
[2020-08-13] MEDS: Ascorbic Acid 500 MG TABLET PO SCH (08:04)
[2020-08-13] MEDS: gemfibroziL 600 MG TABLET PO SCH ×2 (08:05→16:38)
[2020-08-13] MEDS: ZEAXANTHIN PO SCH (08:06)
[2020-08-13] MEDS: LUTEIN PO SCH (08:06)
[2020-08-13] MEDS: (Cranberry Conc/C/Bacill Coag [Cranberry Tablet]) PO SCH (08:06)
[2020-08-13] MEDS: Budesonide/Formoterol 160/4.5 1 PUFF INH IH SCH ×2 (08:51→22:01)
[2020-08-13] MEDS ORDERED: amLODIPine 5 MG TABLET PO SCH (09:00)
[2020-08-13] MEDS ORDERED: NON-FORMULARY MEDICATION 1 EACH EACH (Alendronate Sodium 70 MG) PO SCH (15:44)
[2020-08-13] MEDS ORDERED: *HR* LORazepam 0.5 MG TABLET PO PRN (16:35)
[2020-08-13] MEDS: Gabapentin 100 MG CAPSULE PO SCH (16:38)
[2020-08-14] MEDS: *HR* Enoxaparin 30 MG/0.3 ML SYRINGE SQ SCH (06:25)
[2020-08-14] MEDS: Ascorbic Acid 500 MG TABLET PO SCH (08:28)
[2020-08-14] MEDS: gemfibroziL 600 MG TABLET PO SCH ×2 (08:28→16:07)
[2020-08-14] MEDS: Cholecalciferol (D-3) 1,000 UNIT (25MCG) TABLET PO SCH (08:29)
[2020-08-14] MEDS: Aspirin Enteric Coated 81 MG Tablet PO SCH (08:29)
[2020-08-14] MEDS: Metoprolol XL (24 HR) Succ 50 MG TAB.ER.24H PO SCH (08:29)
[2020-08-14] MEDS: DilTIAZem CD (24hr) 180 MG CAP.ER.24H PO SCH (08:29)
[2020-08-14] MEDS: LUTEIN PO SCH (08:30)
[2020-08-14] MEDS: ZEAXANTHIN PO SCH (08:30)
[2020-08-14] MEDS: (Cranberry Conc/C/Bacill Coag [Cranberry Tablet]) PO SCH (08:30)
[2020-08-14] MEDS: Budesonide/Formoterol 160/4.5 1 PUFF INH IH SCH ×2 (09:40→21:00)
[2020-08-14] MEDS: Gabapentin 100 MG CAPSULE PO SCH (17:39)
[2020-08-15] MEDS: gemfibroziL 600 MG TABLET PO SCH ×2 (06:34→16:44)
[2020-08-15] MEDS: *HR* Enoxaparin 30 MG/0.3 ML SYRINGE SQ SCH (06:34)
[2020-08-15] MEDS: Budesonide/Formoterol 160/4.5 1 PUFF INH IH SCH ×2 (08:17→22:09)
[2020-08-15] MEDS: DilTIAZem CD (24hr) 180 MG CAP.ER.24H PO SCH (08:26)
[2020-08-15] MEDS: Cholecalciferol (D-3) 1,000 UNIT (25MCG) TABLET PO SCH (08:28)
[2020-08-15] MEDS: Metoprolol XL (24 HR) Succ 50 MG TAB.ER.24H PO SCH (08:28)
[2020-08-15] MEDS: Aspirin Enteric Coated 81 MG Tablet PO SCH (08:28)
[2020-08-15] MEDS: Ascorbic Acid 500 MG TABLET PO SCH (08:28)
[2020-08-15] MEDS: ZEAXANTHIN PO SCH (08:30)
[2020-08-15] MEDS: (Cranberry Conc/C/Bacill Coag [Cranberry Tablet]) PO SCH (08:30)
[2020-08-15] MEDS: LUTEIN PO SCH (08:30)
[2020-08-15] MEDS: Gabapentin 100 MG CAPSULE PO SCH (16:43)
[2020-08-16] MEDS: *HR* Enoxaparin 30 MG/0.3 ML SYRINGE SQ SCH (06:42)
[2020-08-16] MEDS: gemfibroziL 600 MG TABLET PO SCH (06:42)
[2020-08-16 07:15] VITALS: BP 153/82
[2020-08-16] MEDS: Metoprolol XL (24 HR) Succ 50 MG TAB.ER.24H PO SCH (08:11)
[2020-08-16] MEDS: Cholecalciferol (D-3) 1,000 UNIT (25MCG) TABLET PO SCH (08:11)
[2020-08-16] MEDS: Ascorbic Acid 500 MG TABLET PO SCH (08:11)
[2020-08-16] MEDS: DilTIAZem CD (24hr) 180 MG CAP.ER.24H PO SCH (08:11)
[2020-08-16] MEDS: Aspirin Enteric Coated 81 MG Tablet PO SCH (08:11)
[2020-08-16] MEDS: Budesonide/Formoterol 160/4.5 1 PUFF INH IH SCH (09:20)
[2020-08-16] MEDS: ZEAXANTHIN PO SCH (09:53)
[2020-08-16] MEDS: LUTEIN PO SCH (09:53)
[2020-08-16] MEDS: (Cranberry Conc/C/Bacill Coag [Cranberry Tablet]) PO SCH (09:53)
== END 2020-08-16 16:20 | disposition home health service (06) | DRG 690 ==
LOC: INPPIK 08-12 17:49
PROVIDERS: ADMIT Family Medicine; ATTEND Family Medicine

== ENCOUNTER 2021-09-30 17:22 | Inpatient (IN) ==
[2021-09-30] MEDS: Metoprolol XL (24 HR) Succ 50 MG TAB.ER.24H PO SCH (20:53)
[2021-09-30] MEDS: Apixaban 5 MG TABLET PO SCH (20:54)
[2021-09-30] MEDS: *HR* OxyCODONE/APAP 10/325 TABLET PO SCH (20:54)
[2021-09-30] MEDS: Mirtazapine 15 MG TABLET PO SCH (20:54)
[2021-09-30] MEDS: GRAPE SEED EXTRACT PO SCH (20:55)
[2021-09-30] MEDS: Gabapentin 100 MG CAPSULE PO SCH (20:55)
[2021-09-30] MEDS ORDERED: Nitroglycerin 1 INCH/GM PACKET TP SCH (21:00)
[2021-09-30] MEDS: Budesonide/Formoterol 160/4.5 1 PUFF INH IH SCH (22:38)
[2021-10-01 07:15] LABS: Basophils % 0.2 %; Eosinophils # 0.2 K/mcL (0.0-0.6); Eosinophils % 3.2 %; Hematocrit 30.2 % (35.3-44.9); Hemoglobin 9.2 g/dL (11.5-15.4); Immature Granulocytes % 0.6 % (0-4); Lymphocytes # 0.9 K/mcL (0.6-4.6); Mean Corpuscular HGB Conc 30.5 g/dL (31.6-35.5); Mean Corpuscular Hemoglobin 25.6 pg (28.0-33.3); Mean Corpuscular Volume 84.1 fL (83.0-100.0); Mean Platelet Volume 11.2 fL (9.4-12.4); Monocytes # 0.3 K/mcL (0.0-1.3); Monocytes % 6.5 %; Neutrophils # 3.2 K/mcL (1.6-8.9); Platelet Count 197 K/mcL (140-400); Red Blood Count 3.59 M/mcL (3.82-4.97); Red Cell Distribution Width 17.4 % (11.5-14.5); Segmented Neutrophils % 69.5 %; White Blood Count 4.7 K/mcL (4.3-11.1)
[2021-10-01 07:41] LABS: BUN/Creatinine Ratio 20 (6-26); Blood Urea Nitrogen 15 mg/dL (8-23); Calcium 9.4 mg/dL (8.6-10.3); Carbon Dioxide 31 mEq/L (23-29); Chloride 104 mEq/L (98-107); Glucose 119 mg/dL (70-105); Osmolality,Calculated 290 (280-300); Potassium 3.8 mEq/L (3.5-5.1); Sodium 139 mEq/L (136-145); eGFR For African Americans > 60 (> 60); eGFR For Non-African Americans > 60 (> 60)
[2021-10-01] MEDS: Metoprolol XL (24 HR) Succ 50 MG TAB.ER.24H PO SCH ×2 (08:08→20:40)
[2021-10-01] MEDS: *HR* OxyCODONE/APAP 10/325 TABLET PO PRN ×2 (08:10→20:40)
[2021-10-01] MEDS: Apixaban 5 MG TABLET PO SCH ×2 (08:10→20:40)
[2021-10-01] MEDS: Gabapentin 100 MG CAPSULE PO SCH ×2 (08:10→20:40)
[2021-10-01] MEDS: Vancomycin Oral Soln 125 MG/2.5 ML UDC PO SCH ×2 (08:14→17:27)
[2021-10-01] MEDS ORDERED: Tiotropium 10 INH DOSE IH ONE (08:19)
[2021-10-01] MEDS: Budesonide/Formoterol 160/4.5 1 PUFF INH IH SCH ×2 (09:33→21:32)
[2021-10-01] MEDS: Tiotropium 10 INH DOSE IH SCH ×2 (09:34→16:49)
[2021-10-01] MEDS: CALCITONIN SALMON NS SCH (09:38)
[2021-10-01] MEDS: VIT C E PO SCH (09:39)
[2021-10-01] MEDS: CRANBERRY PO SCH (09:39)
[2021-10-01] MEDS: Vitamin E 200 UNIT (90MG) CAPSULE PO SCH (10:09)
[2021-10-01] MEDS: Cholecalciferol (D-3) 1,000 UNIT (25MCG) TABLET PO SCH (10:10)
[2021-10-01] MEDS: Ascorbic Acid 500 MG TABLET PO SCH (10:10)
[2021-10-01] MEDS: GRAPE SEED EXTRACT PO SCH ×3 (10:11→20:58)
[2021-10-01] MEDS: Cyanocobalamin (B-12) 1,000 MCG TABLET PO SCH (10:12)
[2021-10-01] MEDS: Ertapenem 1,000 MG in 0.9 % Sodium Chloride Mini Bag 100 ML IVPB SCH (15:42)
[2021-10-01] MEDS: *HR* OxyCODONE/APAP 10/325 TABLET PO SCH (16:49)
[2021-10-01] MEDS: Mirtazapine 15 MG TABLET PO SCH (20:40)
[2021-10-01] MEDS: Nitroglycerin 1 INCH/GM PACKET TP SCH (20:42)
[2021-10-02] MEDS: Vancomycin Oral Soln 125 MG/2.5 ML UDC PO SCH ×2 (06:55→17:26)
[2021-10-02] MEDS: Budesonide/Formoterol 160/4.5 1 PUFF INH IH SCH ×2 (08:43→21:02)
[2021-10-02] MEDS: Tiotropium 10 INH DOSE IH SCH (08:45)
[2021-10-02] MEDS: Ascorbic Acid 500 MG TABLET PO SCH (09:20)
[2021-10-02] MEDS: Gabapentin 100 MG CAPSULE PO SCH ×2 (09:21→22:43)
[2021-10-02] MEDS: Vitamin E 200 UNIT (90MG) CAPSULE PO SCH (09:21)
[2021-10-02] MEDS: Apixaban 5 MG TABLET PO SCH ×2 (09:21→22:43)
[2021-10-02] MEDS: Cholecalciferol (D-3) 1,000 UNIT (25MCG) TABLET PO SCH (09:21)
[2021-10-02] MEDS: Cyanocobalamin (B-12) 1,000 MCG TABLET PO SCH (09:21)
[2021-10-02] MEDS: Metoprolol XL (24 HR) Succ 50 MG TAB.ER.24H PO SCH ×2 (09:21→22:44)
[2021-10-02] MEDS: Nitroglycerin 1 INCH/GM PACKET TP SCH ×2 (09:22→22:44)
[2021-10-02] MEDS: GRAPE SEED EXTRACT PO SCH ×3 (09:34→22:42)
[2021-10-02] MEDS: CRANBERRY PO SCH (12:01)
[2021-10-02] MEDS: FERROUS SULFATE 27 MG PO SCH (12:01)
[2021-10-02] MEDS: VIT C E PO SCH (12:01)
[2021-10-02] MEDS: CALCITONIN SALMON NS SCH (12:01)
[2021-10-02] MEDS: *HR* OxyCODONE/APAP 10/325 TABLET PO PRN (13:12)
[2021-10-02] MEDS: Ertapenem 1,000 MG in 0.9 % Sodium Chloride Mini Bag 100 ML IVPB SCH (14:51)
[2021-10-02] MEDS ORDERED: *HR* Dextrose 50 % in Water (Syg) 50 ML SYRINGE IVP PRN (16:23)
[2021-10-02] MEDS ORDERED: Dextrose 4 GM Chewable Tablets PO PRN ×2 (16:23)
[2021-10-02] MEDS ORDERED: D5% in Water 1,000 ML IVC PRN (16:23)
[2021-10-02] MEDS ORDERED: NON-FORMULARY MEDICATION 1 EACH EACH (Alendronate Sodium 70 MG Tablet) PO SCH (18:47)
[2021-10-02] MEDS: Mirtazapine 15 MG TABLET PO SCH (22:43)
[2021-10-03] MEDS: Cyanocobalamin (B-12) 1,000 MCG TABLET PO SCH (08:07)
[2021-10-03] MEDS: Apixaban 5 MG TABLET PO SCH ×2 (08:08→20:57)
[2021-10-03] MEDS: Vitamin E 200 UNIT (90MG) CAPSULE PO SCH (08:08)
[2021-10-03] MEDS: Gabapentin 100 MG CAPSULE PO SCH ×2 (08:08→20:58)
[2021-10-03] MEDS: Metoprolol XL (24 HR) Succ 50 MG TAB.ER.24H PO SCH ×2 (08:08→20:58)
[2021-10-03] MEDS: Vancomycin Oral Soln 125 MG/2.5 ML UDC PO SCH ×2 (08:08→16:42)
[2021-10-03] MEDS: Cholecalciferol (D-3) 1,000 UNIT (25MCG) TABLET PO SCH (08:08)
[2021-10-03] MEDS: Ascorbic Acid 500 MG TABLET PO SCH (08:08)
[2021-10-03] MEDS: Nitroglycerin 1 INCH/GM PACKET TP SCH ×2 (08:08→21:00)
[2021-10-03] MEDS: CRANBERRY PO SCH (08:09)
[2021-10-03] MEDS: CALCITONIN SALMON NS SCH (08:09)
[2021-10-03] MEDS: VIT C E PO SCH (08:09)
[2021-10-03] MEDS: GRAPE SEED EXTRACT PO SCH ×3 (08:09→21:53)
[2021-10-03] MEDS: Budesonide/Formoterol 160/4.5 1 PUFF INH IH SCH ×2 (09:46→22:27)
[2021-10-03] MEDS: Tiotropium 10 INH DOSE IH SCH (10:04)
[2021-10-03] MEDS: Ertapenem 1,000 MG in 0.9 % Sodium Chloride Mini Bag 100 ML IVPB SCH (16:58)
[2021-10-03] MEDS: Mirtazapine 15 MG TABLET PO SCH (20:58)
[2021-10-04] MEDS: Vancomycin Oral Soln 125 MG/2.5 ML UDC PO SCH ×2 (05:21→16:56)
[2021-10-04] MEDS: Cyanocobalamin (B-12) 1,000 MCG TABLET PO SCH (08:20)
[2021-10-04] MEDS: Gabapentin 100 MG CAPSULE PO SCH ×2 (08:20→20:58)
[2021-10-04] MEDS: Apixaban 5 MG TABLET PO SCH ×2 (08:20→20:58)
[2021-10-04] MEDS: Cholecalciferol (D-3) 1,000 UNIT (25MCG) TABLET PO SCH (08:20)
[2021-10-04] MEDS: Metoprolol XL (24 HR) Succ 50 MG TAB.ER.24H PO SCH ×2 (08:20→20:58)
[2021-10-04] MEDS: Ascorbic Acid 500 MG TABLET PO SCH (08:20)
[2021-10-04] MEDS: CRANBERRY PO SCH (08:21)
[2021-10-04] MEDS: GRAPE SEED EXTRACT PO SCH ×3 (08:21→21:06)
[2021-10-04] MEDS: CALCITONIN SALMON NS SCH (08:21)
[2021-10-04] MEDS: Vitamin E 200 UNIT (90MG) CAPSULE PO SCH (08:21)
[2021-10-04] MEDS: VIT C E PO SCH (08:21)
[2021-10-04] MEDS: Nitroglycerin 1 INCH/GM PACKET TP SCH ×2 (08:22→20:59)
[2021-10-04] MEDS: FERROUS SULFATE 27 MG PO SCH (08:34)
[2021-10-04] MEDS: Budesonide/Formoterol 160/4.5 1 PUFF INH IH SCH ×2 (11:14→22:18)
[2021-10-04] MEDS: Tiotropium 10 INH DOSE IH SCH (11:16)
[2021-10-04] MEDS: Ertapenem 1,000 MG in 0.9 % Sodium Chloride Mini Bag 100 ML IVPB SCH (16:51)
[2021-10-04] MEDS: Nystatin Ointment 15 GM TUBE TP SCH ×2 (17:51→21:06)
[2021-10-04] MEDS: Mirtazapine 15 MG TABLET PO SCH (20:58)
[2021-10-05] MEDS: Vancomycin Oral Soln 125 MG/2.5 ML UDC PO SCH ×2 (05:45→16:31)
[2021-10-05] MEDS: GRAPE SEED EXTRACT PO SCH ×3 (08:28→21:37)
[2021-10-05] MEDS: CALCITONIN SALMON NS SCH (08:28)
[2021-10-05] MEDS: VIT C E PO SCH (08:28)
[2021-10-05] MEDS: CRANBERRY PO SCH (08:28)
[2021-10-05] MEDS: Gabapentin 100 MG CAPSULE PO SCH ×2 (08:29→21:35)
[2021-10-05] MEDS: Apixaban 5 MG TABLET PO SCH ×2 (08:29→21:35)
[2021-10-05] MEDS: Metoprolol XL (24 HR) Succ 50 MG TAB.ER.24H PO SCH ×2 (08:29→21:35)
[2021-10-05] MEDS: Ascorbic Acid 500 MG TABLET PO SCH (08:29)
[2021-10-05] MEDS: Nitroglycerin 1 INCH/GM PACKET TP SCH ×2 (08:29→21:34)
[2021-10-05] MEDS: Cholecalciferol (D-3) 1,000 UNIT (25MCG) TABLET PO SCH (08:29)
[2021-10-05] MEDS: Nystatin Ointment 15 GM TUBE TP SCH ×3 (08:30→21:36)
[2021-10-05] MEDS: Cyanocobalamin (B-12) 1,000 MCG TABLET PO SCH (08:34)
[2021-10-05] MEDS: Vitamin E 200 UNIT (90MG) CAPSULE PO SCH (08:34)
[2021-10-05] MEDS: FERROUS SULFATE 27 MG PO SCH (08:35)
[2021-10-05] MEDS: Tiotropium 10 INH DOSE IH SCH (08:59)
[2021-10-05] MEDS: Budesonide/Formoterol 160/4.5 1 PUFF INH IH SCH ×2 (08:59→22:39)
[2021-10-05] MEDS: Ertapenem 1,000 MG in 0.9 % Sodium Chloride Mini Bag 100 ML IVPB SCH (16:31)
[2021-10-05] MEDS: Mirtazapine 15 MG TABLET PO SCH (21:35)
[2021-10-06] MEDS: Vancomycin Oral Soln 125 MG/2.5 ML UDC PO SCH ×2 (05:58→17:38)
[2021-10-06] MEDS: Tiotropium 10 INH DOSE IH SCH (08:07)
[2021-10-06] MEDS: Budesonide/Formoterol 160/4.5 1 PUFF INH IH SCH ×2 (08:07→22:09)
[2021-10-06] MEDS: Apixaban 5 MG TABLET PO SCH ×2 (08:51→20:52)
[2021-10-06] MEDS: Ascorbic Acid 500 MG TABLET PO SCH (08:51)
[2021-10-06] MEDS: CALCITONIN SALMON NS SCH (08:51)
[2021-10-06] MEDS: Vitamin E 200 UNIT (90MG) CAPSULE PO SCH (08:52)
[2021-10-06] MEDS: Cholecalciferol (D-3) 1,000 UNIT (25MCG) TABLET PO SCH (08:52)
[2021-10-06] MEDS: Cyanocobalamin (B-12) 1,000 MCG TABLET PO SCH (08:52)
[2021-10-06] MEDS: Nitroglycerin 1 INCH/GM PACKET TP SCH ×2 (08:52→20:51)
[2021-10-06] MEDS: Metoprolol XL (24 HR) Succ 50 MG TAB.ER.24H PO SCH ×2 (08:52→20:52)
[2021-10-06] MEDS: Gabapentin 100 MG CAPSULE PO SCH ×2 (08:52→20:52)
[2021-10-06] MEDS: VIT C E PO SCH (08:53)
[2021-10-06] MEDS: CRANBERRY PO SCH (08:53)
[2021-10-06] MEDS: GRAPE SEED EXTRACT PO SCH ×3 (08:53→20:52)
[2021-10-06] MEDS: Nystatin Ointment 15 GM TUBE TP SCH ×3 (12:10→20:52)
[2021-10-06] MEDS: Ertapenem 1,000 MG in 0.9 % Sodium Chloride Mini Bag 100 ML IVPB SCH (15:51)
[2021-10-06] MEDS: Mirtazapine 15 MG TABLET PO SCH (20:52)
[2021-10-07] MEDS: Vancomycin Oral Soln 125 MG/2.5 ML UDC PO SCH ×2 (05:56→17:48)
[2021-10-07 07:26] LABS: Basophils % 0.2 %; Eosinophils # 0.2 K/mcL (0.0-0.6); Hematocrit 30.5 % (35.3-44.9); Hemoglobin 9.3 g/dL (11.5-15.4); Immature Granulocytes % 0.4 % (0-4); Lymphocytes # 1.1 K/mcL (0.6-4.6); Mean Corpuscular HGB Conc 30.5 g/dL (31.6-35.5); Mean Corpuscular Hemoglobin 25.3 pg (28.0-33.3); Mean Corpuscular Volume 82.9 fL (83.0-100.0); Mean Platelet Volume 10.9 fL (9.4-12.4); Monocytes # 0.3 K/mcL (0.0-1.3); Monocytes % 5.7 %; Neutrophils # 3.7 K/mcL (1.6-8.9); Platelet Count 180 K/mcL (140-400); Red Blood Count 3.68 M/mcL (3.82-4.97); Red Cell Distribution Width 17.4 % (11.5-14.5); Segmented Neutrophils % 69.7 %; White Blood Count 5.3 K/mcL (4.3-11.1)
[2021-10-07 07:56] LABS: BUN/Creatinine Ratio 18 (6-26); Blood Urea Nitrogen 13 mg/dL (8-23); Calcium 9.1 mg/dL (8.6-10.3); Carbon Dioxide 29 mEq/L (23-29); Chloride 106 mEq/L (98-107); Glucose 94 mg/dL (70-105); Osmolality,Calculated 294 (280-300); Potassium 3.5 mEq/L (3.5-5.1); Sodium 142 mEq/L (136-145); eGFR For African Americans > 60 (> 60); eGFR For Non-African Americans > 60 (> 60)
[2021-10-07] MEDS: Tiotropium 10 INH DOSE IH SCH (09:20)
[2021-10-07] MEDS: Budesonide/Formoterol 160/4.5 1 PUFF INH IH SCH ×2 (09:20→21:39)
[2021-10-07] MEDS: Vitamin E 200 UNIT (90MG) CAPSULE PO SCH (10:10)
[2021-10-07] MEDS: Gabapentin 100 MG CAPSULE PO SCH ×2 (10:10→20:26)
[2021-10-07] MEDS: Apixaban 5 MG TABLET PO SCH ×2 (10:10→20:26)
[2021-10-07] MEDS: Nitroglycerin 1 INCH/GM PACKET TP SCH ×2 (10:11→20:27)
[2021-10-07] MEDS: Cyanocobalamin (B-12) 1,000 MCG TABLET PO SCH (10:11)
[2021-10-07] MEDS: Cholecalciferol (D-3) 1,000 UNIT (25MCG) TABLET PO SCH (10:11)
[2021-10-07] MEDS: Metoprolol XL (24 HR) Succ 50 MG TAB.ER.24H PO SCH ×2 (10:11→20:26)
[2021-10-07] MEDS: Ascorbic Acid 500 MG TABLET PO SCH (10:11)
[2021-10-07] MEDS: Nystatin Ointment 15 GM TUBE TP SCH ×3 (10:12→20:27)
[2021-10-07] MEDS: CRANBERRY PO SCH (10:13)
[2021-10-07] MEDS: GRAPE SEED EXTRACT PO SCH ×3 (10:13→20:26)
[2021-10-07] MEDS: FERROUS SULFATE 27 MG PO SCH (10:13)
[2021-10-07] MEDS: VIT C E PO SCH (10:13)
[2021-10-07] MEDS: CALCITONIN SALMON NS SCH (10:13)
[2021-10-07 12:23] LABS: C-Reactive Protein 24 mg/L (Less than 10)
[2021-10-07] MEDS: Ertapenem 1,000 MG in 0.9 % Sodium Chloride Mini Bag 100 ML IVPB SCH (15:34)
[2021-10-07] MEDS: Mirtazapine 15 MG TABLET PO SCH (20:26)
[2021-10-08] MEDS: Vancomycin Oral Soln 125 MG/2.5 ML UDC PO SCH ×2 (05:59→17:26)
[2021-10-08] MEDS: Budesonide/Formoterol 160/4.5 1 PUFF INH IH SCH ×2 (10:37→22:04)
[2021-10-08] MEDS: Tiotropium 10 INH DOSE IH SCH (10:38)
[2021-10-08] MEDS: Vitamin E 200 UNIT (90MG) CAPSULE PO SCH (10:45)
[2021-10-08] MEDS: Ascorbic Acid 500 MG TABLET PO SCH (10:48)
[2021-10-08] MEDS: Metoprolol XL (24 HR) Succ 50 MG TAB.ER.24H PO SCH ×2 (10:49→20:03)
[2021-10-08] MEDS: Apixaban 5 MG TABLET PO SCH ×2 (10:49→20:04)
[2021-10-08] MEDS: Gabapentin 100 MG CAPSULE PO SCH ×2 (10:49→20:03)
[2021-10-08] MEDS: Nitroglycerin 1 INCH/GM PACKET TP SCH ×2 (10:51→20:04)
[2021-10-08] MEDS: Nystatin Ointment 15 GM TUBE TP SCH ×3 (10:51→20:04)
[2021-10-08] MEDS: GRAPE SEED EXTRACT PO SCH ×3 (10:52→20:04)
[2021-10-08] MEDS: CRANBERRY PO SCH (10:53)
[2021-10-08] MEDS: CALCITONIN SALMON NS SCH (10:53)
[2021-10-08] MEDS: VIT C E PO SCH (10:53)
[2021-10-08] MEDS: Cholecalciferol (D-3) 1,000 UNIT (25MCG) TABLET PO SCH (10:54)
[2021-10-08] MEDS: Cyanocobalamin (B-12) 1,000 MCG TABLET PO SCH (10:54)
[2021-10-08] MEDS: Ertapenem 1,000 MG in 0.9 % Sodium Chloride Mini Bag 100 ML IVPB SCH (14:51)
[2021-10-08] MEDS: Mirtazapine 15 MG TABLET PO SCH (20:03)
[2021-10-09] MEDS: Vancomycin Oral Soln 125 MG/2.5 ML UDC PO SCH ×2 (06:34→17:17)
[2021-10-09] MEDS: Vitamin E 200 UNIT (90MG) CAPSULE PO SCH (10:08)
[2021-10-09] MEDS: Gabapentin 100 MG CAPSULE PO SCH ×2 (10:09→21:40)
[2021-10-09] MEDS: Metoprolol XL (24 HR) Succ 50 MG TAB.ER.24H PO SCH ×2 (10:09→21:40)
[2021-10-09] MEDS: Nitroglycerin 1 INCH/GM PACKET TP SCH ×2 (10:09→21:40)
[2021-10-09] MEDS: Cyanocobalamin (B-12) 1,000 MCG TABLET PO SCH (10:09)
[2021-10-09] MEDS: Ascorbic Acid 500 MG TABLET PO SCH (10:09)
[2021-10-09] MEDS: Apixaban 5 MG TABLET PO SCH ×2 (10:09→21:39)
[2021-10-09] MEDS: Cholecalciferol (D-3) 1,000 UNIT (25MCG) TABLET PO SCH (10:09)
[2021-10-09] MEDS: Nystatin Ointment 15 GM TUBE TP SCH ×3 (10:10→21:40)
[2021-10-09] MEDS: GRAPE SEED EXTRACT PO SCH ×3 (10:11→21:40)
[2021-10-09] MEDS: FERROUS SULFATE 27 MG PO SCH (10:11)
[2021-10-09] MEDS: CRANBERRY PO SCH (10:12)
[2021-10-09] MEDS: CALCITONIN SALMON NS SCH (10:12)
[2021-10-09] MEDS: VIT C E PO SCH (10:12)
[2021-10-09] MEDS: Budesonide/Formoterol 160/4.5 1 PUFF INH IH SCH ×2 (11:54→22:39)
[2021-10-09] MEDS: Tiotropium 10 INH DOSE IH SCH (11:55)
[2021-10-09] MEDS: Ertapenem 1,000 MG in 0.9 % Sodium Chloride Mini Bag 100 ML IVPB SCH (15:35)
[2021-10-09] MEDS: Mirtazapine 15 MG TABLET PO SCH (21:39)
[2021-10-10] MEDS: Vancomycin Oral Soln 125 MG/2.5 ML UDC PO SCH ×2 (06:04→15:49)
[2021-10-10] MEDS: Vitamin E 200 UNIT (90MG) CAPSULE PO SCH (08:53)
[2021-10-10] MEDS: Metoprolol XL (24 HR) Succ 50 MG TAB.ER.24H PO SCH ×2 (08:53→19:55)
[2021-10-10] MEDS: Cholecalciferol (D-3) 1,000 UNIT (25MCG) TABLET PO SCH (08:54)
[2021-10-10] MEDS: Gabapentin 100 MG CAPSULE PO SCH ×2 (08:55→19:55)
[2021-10-10] MEDS: Cyanocobalamin (B-12) 1,000 MCG TABLET PO SCH (08:56)
[2021-10-10] MEDS: GRAPE SEED EXTRACT PO SCH ×3 (08:56→19:55)
[2021-10-10] MEDS: CRANBERRY PO SCH (08:56)
[2021-10-10] MEDS: VIT C E PO SCH (08:56)
[2021-10-10] MEDS: Nystatin Ointment 15 GM TUBE TP SCH ×3 (08:57→19:56)
[2021-10-10] MEDS: Nitroglycerin 1 INCH/GM PACKET TP SCH ×2 (08:57→19:55)
[2021-10-10] MEDS: CALCITONIN SALMON NS SCH (08:57)
[2021-10-10] MEDS: Apixaban 5 MG TABLET PO SCH ×2 (08:58→19:55)
[2021-10-10] MEDS: Ascorbic Acid 500 MG TABLET PO SCH (08:58)
[2021-10-10] MEDS: Tiotropium 10 INH DOSE IH SCH (09:47)
[2021-10-10] MEDS: Budesonide/Formoterol 160/4.5 1 PUFF INH IH SCH ×2 (09:48→22:15)
[2021-10-10] MEDS: Ertapenem 1,000 MG in 0.9 % Sodium Chloride Mini Bag 100 ML IVPB SCH (15:44)
[2021-10-10] MEDS: Mirtazapine 15 MG TABLET PO SCH (19:55)
[2021-10-11] MEDS: Vancomycin Oral Soln 125 MG/2.5 ML UDC PO SCH ×2 (06:25→17:51)
[2021-10-11] MEDS: Ascorbic Acid 500 MG TABLET PO SCH (08:11)
[2021-10-11] MEDS: Vitamin E 200 UNIT (90MG) CAPSULE PO SCH (08:11)
[2021-10-11] MEDS: Nitroglycerin 1 INCH/GM PACKET TP SCH ×2 (08:11→20:08)
[2021-10-11] MEDS: Apixaban 5 MG TABLET PO SCH ×2 (08:12→20:08)
[2021-10-11] MEDS: CRANBERRY PO SCH (08:12)
[2021-10-11] MEDS: VIT C E PO SCH (08:12)
[2021-10-11] MEDS: Gabapentin 100 MG CAPSULE PO SCH ×2 (08:12→20:08)
[2021-10-11] MEDS: Nystatin Ointment 15 GM TUBE TP SCH ×3 (08:12→20:08)
[2021-10-11] MEDS: GRAPE SEED EXTRACT PO SCH ×3 (08:12→20:11)
[2021-10-11] MEDS: Metoprolol XL (24 HR) Succ 50 MG TAB.ER.24H PO SCH ×2 (08:12→20:08)
[2021-10-11] MEDS: CALCITONIN SALMON NS SCH (08:12)
[2021-10-11] MEDS: Cholecalciferol (D-3) 1,000 UNIT (25MCG) TABLET PO SCH (08:12)
[2021-10-11] MEDS: Cyanocobalamin (B-12) 1,000 MCG TABLET PO SCH (08:14)
[2021-10-11] MEDS: FERROUS SULFATE 27 MG PO SCH (08:14)
[2021-10-11] MEDS: Budesonide/Formoterol 160/4.5 1 PUFF INH IH SCH ×2 (09:33→21:19)
[2021-10-11] MEDS: Tiotropium 10 INH DOSE IH SCH (09:34)
[2021-10-11] MEDS: Ertapenem 1,000 MG in 0.9 % Sodium Chloride Mini Bag 100 ML IVPB SCH (15:15)
[2021-10-11] MEDS: Mirtazapine 15 MG TABLET PO SCH (20:08)
[2021-10-12] MEDS: Vancomycin Oral Soln 125 MG/2.5 ML UDC PO SCH ×2 (05:58→18:30)
[2021-10-12] MEDS: Metoprolol XL (24 HR) Succ 50 MG TAB.ER.24H PO SCH ×2 (10:12→20:32)
[2021-10-12] MEDS: Gabapentin 100 MG CAPSULE PO SCH ×2 (10:12→20:32)
[2021-10-12] MEDS: Ascorbic Acid 500 MG TABLET PO SCH (10:12)
[2021-10-12] MEDS: Cyanocobalamin (B-12) 1,000 MCG TABLET PO SCH (10:12)
[2021-10-12] MEDS: Cholecalciferol (D-3) 1,000 UNIT (25MCG) TABLET PO SCH (10:12)
[2021-10-12] MEDS: Apixaban 5 MG TABLET PO SCH ×2 (10:12→20:32)
[2021-10-12] MEDS: Vitamin E 200 UNIT (90MG) CAPSULE PO SCH (10:12)
[2021-10-12] MEDS: Nitroglycerin 1 INCH/GM PACKET TP SCH ×2 (10:13→20:32)
[2021-10-12] MEDS: VIT C E PO SCH (10:15)
[2021-10-12] MEDS: GRAPE SEED EXTRACT PO SCH ×3 (10:15→20:32)
[2021-10-12] MEDS: CRANBERRY PO SCH (10:15)
[2021-10-12] MEDS: FERROUS SULFATE 27 MG PO SCH (10:17)
[2021-10-12] MEDS: Nystatin Ointment 15 GM TUBE TP SCH ×3 (10:17→20:33)
[2021-10-12] MEDS: CALCITONIN SALMON NS SCH (10:17)
[2021-10-12] MEDS: Tiotropium 10 INH DOSE IH SCH (11:11)
[2021-10-12] MEDS: Budesonide/Formoterol 160/4.5 1 PUFF INH IH SCH ×2 (11:12→22:58)
[2021-10-12] MEDS: Ertapenem 1,000 MG in 0.9 % Sodium Chloride Mini Bag 100 ML IVPB SCH (15:20)
[2021-10-12] MEDS: Mirtazapine 15 MG TABLET PO SCH (20:32)
[2021-10-13] MEDS: Vancomycin Oral Soln 125 MG/2.5 ML UDC PO SCH ×2 (06:32→17:59)
[2021-10-13] MEDS: Gabapentin 100 MG CAPSULE PO SCH ×2 (09:54→23:10)
[2021-10-13] MEDS: Vitamin E 200 UNIT (90MG) CAPSULE PO SCH (09:54)
[2021-10-13] MEDS: Metoprolol XL (24 HR) Succ 50 MG TAB.ER.24H PO SCH ×2 (09:54→23:10)
[2021-10-13] MEDS: Ascorbic Acid 500 MG TABLET PO SCH (09:54)
[2021-10-13] MEDS: Cyanocobalamin (B-12) 1,000 MCG TABLET PO SCH (09:55)
[2021-10-13] MEDS: Nitroglycerin 1 INCH/GM PACKET TP SCH ×2 (09:55→23:11)
[2021-10-13] MEDS: Apixaban 5 MG TABLET PO SCH ×2 (09:55→23:10)
[2021-10-13] MEDS: Nystatin Ointment 15 GM TUBE TP SCH ×3 (09:55→23:11)
[2021-10-13] MEDS: Cholecalciferol (D-3) 1,000 UNIT (25MCG) TABLET PO SCH (09:55)
[2021-10-13] MEDS: CRANBERRY PO SCH (09:59)
[2021-10-13] MEDS: VIT C E PO SCH (09:59)
[2021-10-13] MEDS: GRAPE SEED EXTRACT PO SCH ×3 (09:59→23:14)
[2021-10-13] MEDS: CALCITONIN SALMON NS SCH (10:00)
[2021-10-13] MEDS: Budesonide/Formoterol 160/4.5 1 PUFF INH IH SCH ×2 (10:36→22:44)
[2021-10-13] MEDS: Tiotropium 10 INH DOSE IH SCH (10:37)
[2021-10-13] MEDS: Ertapenem 1,000 MG in 0.9 % Sodium Chloride Mini Bag 100 ML IVPB SCH (16:17)
[2021-10-13] MEDS: Mirtazapine 15 MG TABLET PO SCH (23:11)
[2021-10-13] MEDS: *HR* OxyCODONE/APAP 10/325 TABLET PO PRN (23:14)
[2021-10-14] MEDS: Vitamin E 200 UNIT (90MG) CAPSULE PO SCH (08:22)
[2021-10-14] MEDS: Vancomycin Oral Soln 125 MG/2.5 ML UDC PO SCH ×2 (08:22→17:05)
[2021-10-14] MEDS: Cyanocobalamin (B-12) 1,000 MCG TABLET PO SCH (08:23)
[2021-10-14] MEDS: Metoprolol XL (24 HR) Succ 50 MG TAB.ER.24H PO SCH ×2 (08:23→19:43)
[2021-10-14] MEDS: Cholecalciferol (D-3) 1,000 UNIT (25MCG) TABLET PO SCH (08:23)
[2021-10-14] MEDS: Nystatin Ointment 15 GM TUBE TP SCH ×3 (08:23→19:45)
[2021-10-14] MEDS: Apixaban 5 MG TABLET PO SCH ×2 (08:23→19:43)
[2021-10-14] MEDS: Nitroglycerin 1 INCH/GM PACKET TP SCH ×2 (08:23→19:44)
[2021-10-14] MEDS: Gabapentin 100 MG CAPSULE PO SCH ×2 (08:23→19:44)
[2021-10-14] MEDS: FERROUS SULFATE 27 MG PO SCH (08:24)
[2021-10-14] MEDS: CALCITONIN SALMON NS SCH (08:25)
[2021-10-14] MEDS: GRAPE SEED EXTRACT PO SCH ×3 (08:25→19:44)
[2021-10-14] MEDS: VIT C E PO SCH (08:25)
[2021-10-14] MEDS: CRANBERRY PO SCH (08:25)
[2021-10-14] MEDS: Ascorbic Acid 500 MG TABLET PO SCH (08:25)
[2021-10-14] MEDS: Budesonide/Formoterol 160/4.5 1 PUFF INH IH SCH ×2 (10:17→22:34)
[2021-10-14] MEDS: Tiotropium 10 INH DOSE IH SCH (10:18)
[2021-10-14] MEDS: Ertapenem 1,000 MG in 0.9 % Sodium Chloride Mini Bag 100 ML IVPB SCH (15:58)
[2021-10-14] MEDS: *HR* OxyCODONE/APAP 10/325 TABLET PO PRN (19:43)
[2021-10-14] MEDS: Mirtazapine 15 MG TABLET PO SCH (19:44)
[2021-10-15] MEDS: Vancomycin Oral Soln 125 MG/2.5 ML UDC PO SCH ×2 (05:33→16:26)
[2021-10-15] MEDS: Vitamin E 200 UNIT (90MG) CAPSULE PO SCH (07:49)
[2021-10-15] MEDS: Gabapentin 100 MG CAPSULE PO SCH ×2 (07:49→20:10)
[2021-10-15] MEDS: Apixaban 5 MG TABLET PO SCH ×2 (07:49→20:10)
[2021-10-15] MEDS: Cyanocobalamin (B-12) 1,000 MCG TABLET PO SCH (07:49)
[2021-10-15] MEDS: GRAPE SEED EXTRACT PO SCH ×3 (07:49→20:18)
[2021-10-15] MEDS: Cholecalciferol (D-3) 1,000 UNIT (25MCG) TABLET PO SCH (07:49)
[2021-10-15] MEDS: Ascorbic Acid 500 MG TABLET PO SCH (07:49)
[2021-10-15] MEDS: Metoprolol XL (24 HR) Succ 50 MG TAB.ER.24H PO SCH ×2 (07:49→20:10)
[2021-10-15] MEDS: CRANBERRY PO SCH (07:50)
[2021-10-15] MEDS: CALCITONIN SALMON NS SCH (07:50)
[2021-10-15] MEDS: Nystatin Ointment 15 GM TUBE TP SCH ×3 (07:50→20:09)
[2021-10-15] MEDS: VIT C E PO SCH (07:50)
[2021-10-15 07:54] LABS: Hematocrit 29.4 % (35.3-44.9); Mean Corpuscular HGB Conc 30.6 g/dL (31.6-35.5); Mean Corpuscular Hemoglobin 25.7 pg (28.0-33.3); Mean Platelet Volume 11.2 fL (9.4-12.4); Platelet Count 189 K/mcL (140-400); Red Cell Distribution Width 18.2 % (11.5-14.5); White Blood Count 5.4 K/mcL (4.3-11.1)
[2021-10-15 08:17] LABS: Alanine Aminotransferase 6 Units/L (7-52); Albumin 2.9 g/dL (3.5-5.7); Alkaline Phosphatase 47 Units/L (34-104); Aspartate Amino Transferase 12 Units/L (13-39); BUN/Creatinine Ratio 23 (6-26); Bilirubin,Total 0.4 mg/dL (0.3-1.0); Blood Urea Nitrogen 22 mg/dL (8-23); Calcium 8.8 mg/dL (8.6-10.3); Carbon Dioxide 26 mEq/L (23-29); Chloride 109 mEq/L (98-107); Glucose 104 mg/dL (70-105); Osmolality,Calculated 296 (280-300); Potassium 4.3 mEq/L (3.5-5.1); Sodium 141 mEq/L (136-145); Total Protein 5.9 g/dL (6.4-8.9); eGFR For African Americans > 60 (> 60); eGFR For Non-African Americans 54 (> 60)
[2021-10-15] MEDS: Nitroglycerin 1 INCH/GM PACKET TP SCH ×2 (08:46→20:11)
[2021-10-15] MEDS: Tiotropium 10 INH DOSE IH SCH (09:19)
[2021-10-15] MEDS: Budesonide/Formoterol 160/4.5 1 PUFF INH IH SCH ×2 (09:19→21:17)
[2021-10-15] MEDS ORDERED: Ertapenem 1,000 MG in 0.9 % Sodium Chloride Mini Bag 100 ML IVPB SCH (15:00)
[2021-10-15] MEDS: Ertapenem 1,000 MG in 0.9 % Sodium Chloride Mini Bag 100 ML IVPB SCH (16:11)
[2021-10-15] MEDS: Mirtazapine 15 MG TABLET PO SCH (20:10)
[2021-10-16] MEDS: Vancomycin Oral Soln 125 MG/2.5 ML UDC PO SCH ×2 (06:26→17:09)
[2021-10-16] MEDS: Budesonide/Formoterol 160/4.5 1 PUFF INH IH SCH ×2 (07:52→21:55)
[2021-10-16] MEDS: Tiotropium 10 INH DOSE IH SCH (07:52)
[2021-10-16] MEDS: Vitamin E 200 UNIT (90MG) CAPSULE PO SCH (09:56)
[2021-10-16] MEDS: Cyanocobalamin (B-12) 1,000 MCG TABLET PO SCH (09:56)
[2021-10-16] MEDS: Apixaban 5 MG TABLET PO SCH ×2 (09:56→19:42)
[2021-10-16] MEDS: Cholecalciferol (D-3) 1,000 UNIT (25MCG) TABLET PO SCH (09:56)
[2021-10-16] MEDS: Metoprolol XL (24 HR) Succ 50 MG TAB.ER.24H PO SCH ×2 (09:56→19:42)
[2021-10-16] MEDS: Gabapentin 100 MG CAPSULE PO SCH ×2 (09:57→19:42)
[2021-10-16] MEDS: CALCITONIN SALMON NS SCH (09:57)
[2021-10-16] MEDS: CRANBERRY PO SCH (09:57)
[2021-10-16] MEDS: Nitroglycerin 1 INCH/GM PACKET TP SCH ×2 (09:57→19:42)
[2021-10-16] MEDS: VIT C E PO SCH (09:57)
[2021-10-16] MEDS: GRAPE SEED EXTRACT PO SCH ×3 (09:57→20:24)
[2021-10-16] MEDS: Nystatin Ointment 15 GM TUBE TP SCH ×3 (09:57→19:42)
[2021-10-16] MEDS: FERROUS SULFATE 27 MG PO SCH (09:58)
[2021-10-16] MEDS: Ascorbic Acid 500 MG TABLET PO SCH (09:58)
[2021-10-16] MEDS: Neosporin OINT 15 GM TUBE TP SCH (10:40)
[2021-10-16] MEDS: Ertapenem 1,000 MG in 0.9 % Sodium Chloride Mini Bag 100 ML IVPB SCH (15:57)
[2021-10-16] MEDS: Mirtazapine 15 MG TABLET PO SCH (19:42)
[2021-10-17] MEDS: Vancomycin Oral Soln 125 MG/2.5 ML UDC PO SCH ×2 (06:00→17:57)
[2021-10-17] MEDS: Ascorbic Acid 500 MG TABLET PO SCH (09:18)
[2021-10-17] MEDS: Cholecalciferol (D-3) 1,000 UNIT (25MCG) TABLET PO SCH (09:18)
[2021-10-17] MEDS: Metoprolol XL (24 HR) Succ 50 MG TAB.ER.24H PO SCH ×2 (09:18→20:18)
[2021-10-17] MEDS: Apixaban 5 MG TABLET PO SCH ×2 (09:18→20:18)
[2021-10-17] MEDS: Nitroglycerin 1 INCH/GM PACKET TP SCH ×2 (09:18→20:19)
[2021-10-17] MEDS: Vitamin E 200 UNIT (90MG) CAPSULE PO SCH (09:18)
[2021-10-17] MEDS: Gabapentin 100 MG CAPSULE PO SCH ×2 (09:18→20:19)
[2021-10-17] MEDS: Cyanocobalamin (B-12) 1,000 MCG TABLET PO SCH (09:19)
[2021-10-17] MEDS: CALCITONIN SALMON NS SCH (09:20)
[2021-10-17] MEDS: GRAPE SEED EXTRACT PO SCH ×3 (09:20→20:19)
[2021-10-17] MEDS: Nystatin Ointment 15 GM TUBE TP SCH ×3 (09:20→20:19)
[2021-10-17] MEDS: CRANBERRY PO SCH (09:20)
[2021-10-17] MEDS: VIT C E PO SCH (09:20)
[2021-10-17] MEDS: Budesonide/Formoterol 160/4.5 1 PUFF INH IH SCH ×2 (09:21→21:57)
[2021-10-17] MEDS: Neosporin OINT 15 GM TUBE TP SCH (09:21)
[2021-10-17] MEDS: Tiotropium 10 INH DOSE IH SCH (09:22)
[2021-10-17] MEDS: Ertapenem 1,000 MG in 0.9 % Sodium Chloride Mini Bag 100 ML IVPB SCH (14:24)
[2021-10-17] MEDS: Mirtazapine 15 MG TABLET PO SCH (20:18)
[2021-10-18] MEDS: Vancomycin Oral Soln 125 MG/2.5 ML UDC PO SCH ×2 (05:57→18:04)
[2021-10-18] MEDS: Ascorbic Acid 500 MG TABLET PO SCH (08:52)
[2021-10-18] MEDS: Vitamin E 200 UNIT (90MG) CAPSULE PO SCH (08:52)
[2021-10-18] MEDS: Cholecalciferol (D-3) 1,000 UNIT (25MCG) TABLET PO SCH (08:52)
[2021-10-18] MEDS: Gabapentin 100 MG CAPSULE PO SCH ×2 (08:53→20:37)
[2021-10-18] MEDS: Metoprolol XL (24 HR) Succ 50 MG TAB.ER.24H PO SCH ×2 (08:53→20:37)
[2021-10-18] MEDS: VIT C E PO SCH (08:54)
[2021-10-18] MEDS: CRANBERRY PO SCH (08:54)
[2021-10-18] MEDS: Apixaban 5 MG TABLET PO SCH ×2 (08:54→20:37)
[2021-10-18] MEDS: Cyanocobalamin (B-12) 1,000 MCG TABLET PO SCH (08:54)
[2021-10-18] MEDS: FERROUS SULFATE 27 MG PO SCH (08:55)
[2021-10-18] MEDS: GRAPE SEED EXTRACT PO SCH ×3 (08:55→20:40)
[2021-10-18] MEDS: CALCITONIN SALMON NS SCH (08:55)
[2021-10-18] MEDS: Neosporin OINT 15 GM TUBE TP SCH (08:56)
[2021-10-18] MEDS: Nystatin Ointment 15 GM TUBE TP SCH ×3 (09:02→20:38)
[2021-10-18] MEDS: Nitroglycerin 1 INCH/GM PACKET TP SCH ×2 (09:03→20:38)
[2021-10-18] MEDS: Tiotropium 10 INH DOSE IH SCH (11:39)
[2021-10-18] MEDS: Budesonide/Formoterol 160/4.5 1 PUFF INH IH SCH ×2 (11:40→21:23)
[2021-10-18] MEDS: Ertapenem 1,000 MG in 0.9 % Sodium Chloride Mini Bag 100 ML IVPB SCH (18:04)
[2021-10-18] MEDS: Mirtazapine 15 MG TABLET PO SCH (20:37)
[2021-10-19] MEDS: Vancomycin Oral Soln 125 MG/2.5 ML UDC PO SCH ×2 (06:24→17:34)
[2021-10-19] MEDS: Metoprolol XL (24 HR) Succ 50 MG TAB.ER.24H PO SCH ×2 (06:45→20:57)
[2021-10-19] MEDS: Tiotropium 10 INH DOSE IH SCH (09:10)
[2021-10-19] MEDS: Budesonide/Formoterol 160/4.5 1 PUFF INH IH SCH ×2 (09:10→21:30)
[2021-10-19] MEDS: CRANBERRY PO SCH (09:32)
[2021-10-19] MEDS: CALCITONIN SALMON NS SCH (09:32)
[2021-10-19] MEDS: GRAPE SEED EXTRACT PO SCH ×3 (09:32→20:57)
[2021-10-19] MEDS: VIT C E PO SCH (09:32)
[2021-10-19] MEDS: Ascorbic Acid 500 MG TABLET PO SCH (09:33)
[2021-10-19] MEDS: Vitamin E 200 UNIT (90MG) CAPSULE PO SCH (09:33)
[2021-10-19] MEDS: Apixaban 5 MG TABLET PO SCH ×2 (09:34→20:57)
[2021-10-19] MEDS: Cyanocobalamin (B-12) 1,000 MCG TABLET PO SCH (09:34)
[2021-10-19] MEDS: Cholecalciferol (D-3) 1,000 UNIT (25MCG) TABLET PO SCH (09:34)
[2021-10-19] MEDS: FERROUS SULFATE 27 MG PO SCH (09:35)
[2021-10-19] MEDS: Neosporin OINT 15 GM TUBE TP SCH (09:35)
[2021-10-19] MEDS: Gabapentin 100 MG CAPSULE PO SCH ×2 (09:35→20:57)
[2021-10-19] MEDS: Nystatin Ointment 15 GM TUBE TP SCH ×3 (09:36→20:57)
[2021-10-19] MEDS: Nitroglycerin 1 INCH/GM PACKET TP SCH ×2 (09:36→20:57)
[2021-10-19] MEDS ORDERED: Furosemide 20 MG/2 ML VIAL IVP ONE (10:45)
[2021-10-19] MEDS: Ertapenem 1,000 MG in 0.9 % Sodium Chloride Mini Bag 100 ML IVPB SCH (15:59)
[2021-10-19] MEDS: Mirtazapine 15 MG TABLET PO SCH (20:57)
[2021-10-20] MEDS: Vancomycin Oral Soln 125 MG/2.5 ML UDC PO SCH ×2 (06:31→16:28)
[2021-10-20] MEDS: Tiotropium 10 INH DOSE IH SCH (09:52)
[2021-10-20] MEDS: Budesonide/Formoterol 160/4.5 1 PUFF INH IH SCH ×2 (09:52→21:50)
[2021-10-20] MEDS: Vitamin E 200 UNIT (90MG) CAPSULE PO SCH (10:16)
[2021-10-20] MEDS: Ascorbic Acid 500 MG TABLET PO SCH (10:16)
[2021-10-20] MEDS: Cholecalciferol (D-3) 1,000 UNIT (25MCG) TABLET PO SCH (10:17)
[2021-10-20] MEDS: Metoprolol XL (24 HR) Succ 50 MG TAB.ER.24H PO SCH ×2 (10:17→19:54)
[2021-10-20] MEDS: Apixaban 5 MG TABLET PO SCH (10:18)
[2021-10-20] MEDS: Nystatin Ointment 15 GM TUBE TP SCH ×3 (10:18→19:54)
[2021-10-20] MEDS: Gabapentin 100 MG CAPSULE PO SCH ×2 (10:18→19:54)
[2021-10-20] MEDS: Cyanocobalamin (B-12) 1,000 MCG TABLET PO SCH (10:18)
[2021-10-20] MEDS: GRAPE SEED EXTRACT PO SCH ×3 (10:19→19:54)
[2021-10-20] MEDS: Neosporin OINT 15 GM TUBE TP SCH (10:19)
[2021-10-20] MEDS: CALCITONIN SALMON NS SCH (10:19)
[2021-10-20] MEDS: CRANBERRY PO SCH (10:19)
[2021-10-20] MEDS: VIT C E PO SCH (10:19)
[2021-10-20] MEDS: Nitroglycerin 1 INCH/GM PACKET TP SCH ×2 (10:20→19:54)
[2021-10-20] MEDS: Ertapenem 1,000 MG in 0.9 % Sodium Chloride Mini Bag 100 ML IVPB SCH (16:29)
[2021-10-20] MEDS: Mirtazapine 15 MG TABLET PO SCH (19:54)
[2021-10-21] MEDS: Vancomycin Oral Soln 125 MG/2.5 ML UDC PO SCH ×2 (06:33→18:23)
[2021-10-21 07:33] LABS: Basophils % 0.4 %; Eosinophils # 0.2 K/mcL (0.0-0.6); Eosinophils % 3.2 %; Hematocrit 30.5 % (35.3-44.9); Hemoglobin 9.2 g/dL (11.5-15.4); Immature Granulocytes % 0.2 % (0-4); Lymphocytes % 19.8 %; Mean Corpuscular HGB Conc 30.2 g/dL (31.6-35.5); Mean Corpuscular Hemoglobin 24.9 pg (28.0-33.3); Mean Corpuscular Volume 82.7 fL (83.0-100.0); Mean Platelet Volume 11.4 fL (9.4-12.4); Monocytes # 0.3 K/mcL (0.0-1.3); Monocytes % 6.3 %; Neutrophils # 3.5 K/mcL (1.6-8.9); Platelet Count 199 K/mcL (140-400); Red Blood Count 3.69 M/mcL (3.82-4.97); Red Cell Distribution Width 17.6 % (11.5-14.5); Segmented Neutrophils % 70.1 %
[2021-10-21 07:51] LABS: BUN/Creatinine Ratio 29 (6-26); Blood Urea Nitrogen 24 mg/dL (8-23); Calcium 8.5 mg/dL (8.6-10.3); Carbon Dioxide 25 mEq/L (23-29); Chloride 110 mEq/L (98-107); Glucose 118 mg/dL (70-105); Osmolality,Calculated 297 (280-300); Potassium 4.1 mEq/L (3.5-5.1); Sodium 141 mEq/L (136-145); eGFR For African Americans > 60 (> 60); eGFR For Non-African Americans > 60 (> 60)
[2021-10-21] MEDS: Budesonide/Formoterol 160/4.5 1 PUFF INH IH SCH ×2 (09:22→21:56)
[2021-10-21] MEDS: Tiotropium 10 INH DOSE IH SCH (09:22)
[2021-10-21 09:46] LABS: C-Reactive Protein 19 mg/L (Less than 10)
[2021-10-21] MEDS: Nystatin Ointment 15 GM TUBE TP SCH ×3 (11:53→21:04)
[2021-10-21] MEDS: FERROUS SULFATE 27 MG PO SCH (11:54)
[2021-10-21] MEDS: CALCITONIN SALMON NS SCH (11:54)
[2021-10-21] MEDS: GRAPE SEED EXTRACT PO SCH ×3 (11:54→21:05)
[2021-10-21] MEDS: Gabapentin 100 MG CAPSULE PO SCH ×2 (11:54→21:04)
[2021-10-21] MEDS: Nitroglycerin 1 INCH/GM PACKET TP SCH ×2 (11:54→21:04)
[2021-10-21] MEDS: Metoprolol XL (24 HR) Succ 50 MG TAB.ER.24H PO SCH ×2 (11:55→21:03)
[2021-10-21] MEDS: CRANBERRY PO SCH (11:55)
[2021-10-21] MEDS: VIT C E PO SCH (11:55)
[2021-10-21] MEDS: Vitamin E 200 UNIT (90MG) CAPSULE PO SCH (11:56)
[2021-10-21] MEDS: Ascorbic Acid 500 MG TABLET PO SCH (11:56)
[2021-10-21] MEDS: Neosporin OINT 15 GM TUBE TP SCH (11:56)
[2021-10-21] MEDS: Cholecalciferol (D-3) 1,000 UNIT (25MCG) TABLET PO SCH (11:56)
[2021-10-21] MEDS: Cyanocobalamin (B-12) 1,000 MCG TABLET PO SCH (11:56)
[2021-10-21] MEDS: Mirtazapine 15 MG TABLET PO SCH (21:03)
[2021-10-21] MEDS: Apixaban 5 MG TABLET PO SCH (21:04)
[2021-10-22] MEDS: Vancomycin Oral Soln 125 MG/2.5 ML UDC PO SCH ×2 (06:10→19:39)
[2021-10-22] MEDS: Apixaban 5 MG TABLET PO SCH ×2 (09:27→19:38)
[2021-10-22] MEDS: Vitamin E 200 UNIT (90MG) CAPSULE PO SCH (09:27)
[2021-10-22] MEDS: Gabapentin 100 MG CAPSULE PO SCH ×2 (09:27→19:38)
[2021-10-22] MEDS: Nitroglycerin 1 INCH/GM PACKET TP SCH ×2 (09:27→19:39)
[2021-10-22] MEDS: Metoprolol XL (24 HR) Succ 50 MG TAB.ER.24H PO SCH ×2 (09:27→19:39)
[2021-10-22] MEDS: Cholecalciferol (D-3) 1,000 UNIT (25MCG) TABLET PO SCH (09:27)
[2021-10-22] MEDS: Ascorbic Acid 500 MG TABLET PO SCH (09:27)
[2021-10-22] MEDS: Cyanocobalamin (B-12) 1,000 MCG TABLET PO SCH (09:28)
[2021-10-22] MEDS: GRAPE SEED EXTRACT PO SCH ×3 (09:28→19:40)
[2021-10-22] MEDS: VIT C E PO SCH (09:28)
[2021-10-22] MEDS: CALCITONIN SALMON NS SCH (09:28)
[2021-10-22] MEDS: CRANBERRY PO SCH (09:28)
[2021-10-22] MEDS: Nystatin Ointment 15 GM TUBE TP SCH ×3 (09:28→21:31)
[2021-10-22] MEDS: Neosporin OINT 15 GM TUBE TP SCH (09:28)
[2021-10-22] MEDS: Tiotropium 10 INH DOSE IH SCH (11:22)
[2021-10-22] MEDS: Budesonide/Formoterol 160/4.5 1 PUFF INH IH SCH ×2 (11:22→22:21)
[2021-10-22] MEDS: Mirtazapine 15 MG TABLET PO SCH (19:38)
[2021-10-23] MEDS: Vancomycin Oral Soln 125 MG/2.5 ML UDC PO SCH ×2 (05:30→16:54)
[2021-10-23] MEDS: GRAPE SEED EXTRACT PO SCH ×3 (08:28→19:47)
[2021-10-23] MEDS: Metoprolol XL (24 HR) Succ 50 MG TAB.ER.24H PO SCH ×2 (08:28→19:46)
[2021-10-23] MEDS: Apixaban 5 MG TABLET PO SCH ×2 (08:28→19:47)
[2021-10-23] MEDS: Nitroglycerin 1 INCH/GM PACKET TP SCH ×2 (08:28→19:46)
[2021-10-23] MEDS: VIT C E PO SCH (08:28)
[2021-10-23] MEDS: Cholecalciferol (D-3) 1,000 UNIT (25MCG) TABLET PO SCH (08:28)
[2021-10-23] MEDS: Vitamin E 200 UNIT (90MG) CAPSULE PO SCH (08:28)
[2021-10-23] MEDS: CRANBERRY PO SCH (08:28)
[2021-10-23] MEDS: Gabapentin 100 MG CAPSULE PO SCH ×2 (08:29→19:46)
[2021-10-23] MEDS: Ascorbic Acid 500 MG TABLET PO SCH (08:29)
[2021-10-23] MEDS: Cyanocobalamin (B-12) 1,000 MCG TABLET PO SCH (08:29)
[2021-10-23] MEDS: CALCITONIN SALMON NS SCH (08:29)
[2021-10-23] MEDS: FERROUS SULFATE 27 MG PO SCH (08:29)
[2021-10-23] MEDS: Nystatin Ointment 15 GM TUBE TP SCH ×3 (08:29→19:47)
[2021-10-23] MEDS: Neosporin OINT 15 GM TUBE TP SCH (08:29)
[2021-10-23] MEDS: Tiotropium 10 INH DOSE IH SCH (09:38)
[2021-10-23] MEDS: Budesonide/Formoterol 160/4.5 1 PUFF INH IH SCH ×2 (09:38→22:31)
[2021-10-23] MEDS ORDERED: Moderna Covid-19 Vaccine 100MCG/0.5mL IM ONE (16:00)
[2021-10-23] MEDS: Mirtazapine 15 MG TABLET PO SCH (19:47)
[2021-10-24] MEDS: Vancomycin Oral Soln 125 MG/2.5 ML UDC PO SCH (06:04)
[2021-10-24] MEDS: Cyanocobalamin (B-12) 1,000 MCG TABLET PO SCH (08:47)
[2021-10-24] MEDS: Vitamin E 200 UNIT (90MG) CAPSULE PO SCH (08:47)
[2021-10-24] MEDS: Ascorbic Acid 500 MG TABLET PO SCH (08:48)
[2021-10-24] MEDS: Cholecalciferol (D-3) 1,000 UNIT (25MCG) TABLET PO SCH (08:48)
[2021-10-24] MEDS: Nystatin Ointment 15 GM TUBE TP SCH ×3 (08:48→19:37)
[2021-10-24] MEDS: Metoprolol XL (24 HR) Succ 50 MG TAB.ER.24H PO SCH ×2 (08:48→19:36)
[2021-10-24] MEDS: Gabapentin 100 MG CAPSULE PO SCH ×2 (08:48→19:36)
[2021-10-24] MEDS: Apixaban 5 MG TABLET PO SCH ×2 (08:48→19:36)
[2021-10-24] MEDS: Nitroglycerin 1 INCH/GM PACKET TP SCH ×2 (08:49→19:37)
[2021-10-24] MEDS: GRAPE SEED EXTRACT PO SCH ×3 (08:50→19:42)
[2021-10-24] MEDS: VIT C E PO SCH (08:50)
[2021-10-24] MEDS: CRANBERRY PO SCH (08:50)
[2021-10-24] MEDS: CALCITONIN SALMON NS SCH (08:51)
[2021-10-24] MEDS: Neosporin OINT 15 GM TUBE TP SCH (08:54)
[2021-10-24] MEDS: Budesonide/Formoterol 160/4.5 1 PUFF INH IH SCH ×2 (10:15→23:03)
[2021-10-24] MEDS: Tiotropium 10 INH DOSE IH SCH (10:15)
[2021-10-24] MEDS: Mirtazapine 15 MG TABLET PO SCH (19:36)
[2021-10-25] MEDS: Gabapentin 100 MG CAPSULE PO SCH ×2 (08:44→20:07)
[2021-10-25] MEDS: Ascorbic Acid 500 MG TABLET PO SCH (08:44)
[2021-10-25] MEDS: Apixaban 5 MG TABLET PO SCH ×2 (08:45→20:06)
[2021-10-25] MEDS: Nitroglycerin 1 INCH/GM PACKET TP SCH ×2 (08:46→20:07)
[2021-10-25] MEDS: Nystatin Ointment 15 GM TUBE TP SCH ×3 (08:46→20:12)
[2021-10-25] MEDS: CALCITONIN SALMON NS SCH (08:48)
[2021-10-25] MEDS: Metoprolol XL (24 HR) Succ 50 MG TAB.ER.24H PO SCH ×2 (08:48→20:07)
[2021-10-25] MEDS: FERROUS SULFATE 27 MG PO SCH (08:48)
[2021-10-25] MEDS: GRAPE SEED EXTRACT PO SCH ×3 (08:48→20:08)
[2021-10-25] MEDS: VIT C E PO SCH (08:48)
[2021-10-25] MEDS: CRANBERRY PO SCH (08:48)
[2021-10-25] MEDS: Neosporin OINT 15 GM TUBE TP SCH (08:49)
[2021-10-25] MEDS: Vitamin E 200 UNIT (90MG) CAPSULE PO SCH (08:50)
[2021-10-25] MEDS: Cholecalciferol (D-3) 1,000 UNIT (25MCG) TABLET PO SCH (08:50)
[2021-10-25] MEDS: Cyanocobalamin (B-12) 1,000 MCG TABLET PO SCH (08:50)
[2021-10-25] MEDS: Tiotropium 10 INH DOSE IH SCH (09:54)
[2021-10-25] MEDS: Budesonide/Formoterol 160/4.5 1 PUFF INH IH SCH ×2 (09:54→21:15)
[2021-10-25] MEDS: Mirtazapine 15 MG TABLET PO SCH (20:07)
[2021-10-26] MEDS: Vitamin E 200 UNIT (90MG) CAPSULE PO SCH (09:15)
[2021-10-26] MEDS: Ascorbic Acid 500 MG TABLET PO SCH (09:15)
[2021-10-26] MEDS: Metoprolol XL (24 HR) Succ 50 MG TAB.ER.24H PO SCH ×2 (09:15→21:28)
[2021-10-26] MEDS: Apixaban 5 MG TABLET PO SCH ×2 (09:15→21:28)
[2021-10-26] MEDS: Gabapentin 100 MG CAPSULE PO SCH ×2 (09:15→21:28)
[2021-10-26] MEDS: Nitroglycerin 1 INCH/GM PACKET TP SCH ×2 (09:16→21:30)
[2021-10-26] MEDS: GRAPE SEED EXTRACT PO SCH ×3 (09:16→21:34)
[2021-10-26] MEDS: Cyanocobalamin (B-12) 1,000 MCG TABLET PO SCH (09:16)
[2021-10-26] MEDS: Cholecalciferol (D-3) 1,000 UNIT (25MCG) TABLET PO SCH (09:16)
[2021-10-26] MEDS: VIT C E PO SCH (09:17)
[2021-10-26] MEDS: CRANBERRY PO SCH (09:17)
[2021-10-26] MEDS: Nystatin Ointment 15 GM TUBE TP SCH ×3 (09:19→21:31)
[2021-10-26] MEDS: Neosporin OINT 15 GM TUBE TP SCH (09:20)
[2021-10-26] MEDS: FERROUS SULFATE 27 MG PO SCH (09:20)
[2021-10-26] MEDS: CALCITONIN SALMON NS SCH (09:23)
[2021-10-26] MEDS: Budesonide/Formoterol 160/4.5 1 PUFF INH IH SCH ×2 (09:33→22:07)
[2021-10-26] MEDS: Tiotropium 10 INH DOSE IH SCH (09:33)
[2021-10-26] MEDS: Mirtazapine 15 MG TABLET PO SCH (21:29)
[2021-10-27 07:19] VITALS: BP 150/78; PULSE 92; RESP 18; TEMP 97.4
[2021-10-27] MEDS: Vitamin E 200 UNIT (90MG) CAPSULE PO SCH (08:09)
[2021-10-27] MEDS: Gabapentin 100 MG CAPSULE PO SCH (08:09)
[2021-10-27] MEDS: Cholecalciferol (D-3) 1,000 UNIT (25MCG) TABLET PO SCH (08:09)
[2021-10-27] MEDS: Cyanocobalamin (B-12) 1,000 MCG TABLET PO SCH (08:09)
[2021-10-27] MEDS: Apixaban 5 MG TABLET PO SCH (08:09)
[2021-10-27] MEDS: Metoprolol XL (24 HR) Succ 50 MG TAB.ER.24H PO SCH (08:09)
[2021-10-27] MEDS: Ascorbic Acid 500 MG TABLET PO SCH (08:09)
[2021-10-27] MEDS: Nitroglycerin 1 INCH/GM PACKET TP SCH (08:10)
[2021-10-27] MEDS: Nystatin Ointment 15 GM TUBE TP SCH ×2 (08:11→16:25)
[2021-10-27] MEDS: VIT C E PO SCH (08:12)
[2021-10-27] MEDS: CRANBERRY PO SCH (08:12)
[2021-10-27] MEDS: GRAPE SEED EXTRACT PO SCH ×2 (08:12→16:26)
[2021-10-27] MEDS: CALCITONIN SALMON NS SCH (08:12)
[2021-10-27] MEDS: Neosporin OINT 15 GM TUBE TP SCH (08:13)
[2021-10-27] MEDS: Budesonide/Formoterol 160/4.5 1 PUFF INH IH SCH (09:54)
[2021-10-27] MEDS: Tiotropium 10 INH DOSE IH SCH (09:55)
[2021-10-27 09:57] VITALS: O2SAT 94
== END 2021-10-27 17:10 | disposition home health service (06) | DRG 638 ==
LOC: INPPIK 19:52
PROVIDERS: ADMIT Internal Medicine; ATTEND Internal Medicine

== ENCOUNTER 2022-03-09 18:54 | Inpatient (IN) ==
[2022-03-09 20:07] LABS: Basophils % 0.4 %; Eosinophils # 0.1 K/mcL (0.0-0.6); Eosinophils % 1.1 %; Hematocrit 35.1 % (35.3-44.9); Hemoglobin 10.7 g/dL (11.5-15.4); Lymphocytes % 9.4 %; Mean Corpuscular HGB Conc 30.5 g/dL (31.6-35.5); Mean Corpuscular Hemoglobin 26.8 pg (28.0-33.3); Mean Platelet Volume 11.6 fL (9.4-12.4); Monocytes # 0.7 K/mcL (0.0-1.3); Monocytes % 6.6 %; Neutrophils # 8.8 K/mcL (1.6-8.9); Platelet Count 274 K/mcL (140-400); Red Blood Count 3.99 M/mcL (3.82-4.97); Red Cell Distribution Width 20.1 % (11.5-14.5); Segmented Neutrophils % 81.5 %; White Blood Count 10.7 K/mcL (4.3-11.1)
[2022-03-09 20:14] LABS: INR 1.5; Prothrombin Time 17.2 Seconds (9.4-12.1)
[2022-03-09 20:17] LABS: Activated Partial Thrombo Time 34.4 Seconds (26.0-36.0)
[2022-03-09 20:22] LABS: Bilirubin,Direct 0.1 mg/dL (0.0-0.2); Bilirubin,Indirect 0.7 mg/dL (0.0-1.0); Bilirubin,Total 0.8 mg/dL (0.3-1.0); Calcium 9.4 mg/dL (8.6-10.3); Potassium 3.5 mEq/L (3.5-5.1)
[2022-03-09 20:29] LABS: Troponin I 0.07 ng/mL (< 0.04)
[2022-03-09 20:35] LABS: Bilirubin,Urine Moderate (Negative); Blood,Urine Small (Negative); Clarity,Urine Clear (Clear); Color,Urine Yellow (Yellow); Glucose,Urine (UA) Normal (Normal); Ketones,Urine 15 mg/dL (Negative); Leukocyte Esterase,Urine Small (Negative); Nitrite,Urine Negative (Negative); Protein,Urine >=300 mg/dL (Neg-Trace); Specific Gravity,Urine 1.025 (1.010-1.025); Urobilinogen,Urine Normal (Normal)
[2022-03-09 20:45] LABS: WBC,Urine TNTC per hpf (0-3)
[2022-03-09 20:46] LABS: Bacteria,Urine Many per hpf (None-Few); Squamous Epithelial Cell,Urine Few per hpf (None-Few)
[2022-03-09] MEDS ORDERED: 0.9 % Sodium Chloride 1,000 ML IVC ONE (22:01)
[2022-03-10 07:18] LABS: Basophils # 0.1 K/mcL (0.0-0.2); Basophils % 0.4 %; Eosinophils # 0.3 K/mcL (0.0-0.6); Eosinophils % 2.2 %; Hematocrit 32.9 % (35.3-44.9); Lymphocytes # 0.8 K/mcL (0.6-4.6); Lymphocytes % 7.3 %; Mean Corpuscular HGB Conc 30.4 g/dL (31.6-35.5); Mean Corpuscular Volume 88.9 fL (83.0-100.0); Mean Platelet Volume 11.6 fL (9.4-12.4); Monocytes # 0.8 K/mcL (0.0-1.3); Monocytes % 7.4 %; Neutrophils # 9.2 K/mcL (1.6-8.9); Platelet Count 265 K/mcL (140-400); Red Cell Distribution Width 20.2 % (11.5-14.5); Segmented Neutrophils % 81.7 %; White Blood Count 11.3 K/mcL (4.3-11.1)
[2022-03-10 07:32] LABS: Calcium 8.5 mg/dL (8.6-10.3); Potassium 3.3 mEq/L (3.5-5.1)
[2022-03-10 07:41] LABS: Troponin I 0.06 ng/mL (< 0.04)
[2022-03-10] MEDS ORDERED: Naloxone 0.4 MG/ML INJ IVP PRN (13:52)
[2022-03-10] MEDS ORDERED: Ondansetron 4 MG/2 ML VIAL IVP PRN (13:52)
[2022-03-10] MEDS ORDERED: Ipratropium/Albuterol Neb 3 ML IH PRN (13:58)
[2022-03-10] MEDS ORDERED: Potassium Chloride Elixir 20 MEQ/15 ML UDC PO ONE (14:06)
[2022-03-10] MEDS ORDERED: D5% in 0.45% NACL 1,000 ML IVC SCH (14:15)
[2022-03-10] MEDS ORDERED: Morphine Sulfate 2 MG/ML SYRINGE IVP ONE (15:30)
[2022-03-10] MEDS: Budesonide/Formoterol 160/4.5 1 PUFF INH IH SCH (20:26)
[2022-03-10] MEDS: Nitroglycerin 1 INCH/GM PACKET TP SCH (20:28)
[2022-03-10] MEDS: cefTRIAXone 2,000 MG in 0.9 % Sodium Chloride Mini Bag 100 ML IVPB SCH (20:29)
[2022-03-10] MEDS: Apixaban 5 MG TABLET PO SCH (20:33)
[2022-03-10] MEDS: Metoprolol XL (24 HR) Succ 50 MG TAB.ER.24H PO SCH (20:34)
[2022-03-10] MEDS ORDERED: *HR* LORazepam 2 MG/ML VIAL IVP ONE (22:22)
[2022-03-11 07:25] LABS: Basophils % 0.4 %; Eosinophils # 0.3 K/mcL (0.0-0.6); Eosinophils % 2.6 %; Hemoglobin 9.2 g/dL (11.5-15.4); Immature Granulocytes % 0.7 % (0-4); Lymphocytes # 0.8 K/mcL (0.6-4.6); Lymphocytes % 8.5 %; Mean Corpuscular HGB Conc 29.7 g/dL (31.6-35.5); Mean Corpuscular Hemoglobin 26.8 pg (28.0-33.3); Mean Corpuscular Volume 90.4 fL (83.0-100.0); Mean Platelet Volume 12.4 fL (9.4-12.4); Monocytes # 0.7 K/mcL (0.0-1.3); Monocytes % 7.6 %; Neutrophils # 7.8 K/mcL (1.6-8.9); Platelet Count 266 K/mcL (140-400); Red Blood Count 3.43 M/mcL (3.82-4.97); Red Cell Distribution Width 20.3 % (11.5-14.5); Segmented Neutrophils % 80.2 %; White Blood Count 9.7 K/mcL (4.3-11.1)
[2022-03-11 08:14] LABS: Potassium 3.5 mEq/L (3.5-5.1)
[2022-03-11] MEDS: Budesonide/Formoterol 160/4.5 1 PUFF INH IH SCH ×2 (08:27→19:53)
[2022-03-11] MEDS: Nitroglycerin 1 INCH/GM PACKET TP SCH ×2 (09:50→21:43)
[2022-03-11] MEDS ORDERED: Tiotropium 10 INH DOSE IH SCH (10:00)
[2022-03-11] MEDS: Lactobacillus 1 EACH CAP.SPRINK PO SCH (10:37)
[2022-03-11] MEDS: Apixaban 5 MG TABLET PO SCH ×2 (10:39→21:42)
[2022-03-11] MEDS: polyethylene glycoL 3350 17 GM POWD.PACK PO SCH (10:40)
[2022-03-11] MEDS: *HR* Digoxin 0.125 MG TABLET PO SCH (10:40)
[2022-03-11] MEDS: CALCITONIN NS SCH (10:42)
[2022-03-11] MEDS: (Cranberry Conc/C/Bacill Coag [Cranberry Tablet]) PO SCH (10:42)
[2022-03-11] MEDS: Metoprolol XL (24 HR) Succ 50 MG TAB.ER.24H PO SCH ×2 (10:43→21:44)
[2022-03-11] MEDS: Cyanocobalamin (B-12) 1,000 MCG TABLET PO SCH (10:43)
[2022-03-11] MEDS: Ascorbic Acid 500 MG TABLET PO SCH (10:43)
[2022-03-11] MEDS: Vitamin E 200 UNIT (90MG) CAPSULE PO SCH (10:44)
[2022-03-11] MEDS: Cholecalciferol (D-3) 1,000 UNIT (25MCG) TABLET PO SCH (10:44)
[2022-03-11] MEDS ORDERED: *HR* LORazepam 2 MG/ML VIAL IVP SCH (10:45)
[2022-03-11] MEDS ORDERED: *HR* LORazepam 2 MG/ML VIAL IVP PRN (15:35)
[2022-03-11] MEDS: QUEtiapine Fumarate 25 MG TABLET PO SCH (21:44)
[2022-03-11] MEDS: cefTRIAXone 2,000 MG in 0.9 % Sodium Chloride Mini Bag 100 ML IVPB SCH (22:40)
[2022-03-12 07:20] LABS: Basophils % 0.3 %; Eosinophils % 0.2 %; Hematocrit 31.3 % (35.3-44.9); Hemoglobin 9.6 g/dL (11.5-15.4); Immature Granulocytes % 1.1 % (0-4); Lymphocytes # 0.9 K/mcL (0.6-4.6); Lymphocytes % 6.8 %; Mean Corpuscular HGB Conc 30.7 g/dL (31.6-35.5); Mean Corpuscular Hemoglobin 26.9 pg (28.0-33.3); Mean Corpuscular Volume 87.7 fL (83.0-100.0); Mean Platelet Volume 11.6 fL (9.4-12.4); Monocytes # 0.7 K/mcL (0.0-1.3); Monocytes % 5.6 %; Neutrophils # 11.3 K/mcL (1.6-8.9); Platelet Count 295 K/mcL (140-400); Red Blood Count 3.57 M/mcL (3.82-4.97); Red Cell Distribution Width 19.9 % (11.5-14.5); White Blood Count 13.1 K/mcL (4.3-11.1)
[2022-03-12 07:37] LABS: BUN/Creatinine Ratio 25 (6-26); Blood Urea Nitrogen 12 mg/dL (8-23); Calcium 8.4 mg/dL (8.6-10.3); Carbon Dioxide 25 mEq/L (23-29); Chloride 108 mEq/L (98-107); Glucose 129 mg/dL (70-105); Osmolality,Calculated 305 (280-300); Potassium 2.9 mEq/L (3.5-5.1); Sodium 147 mEq/L (136-145)
[2022-03-12] MEDS: Budesonide/Formoterol 160/4.5 1 PUFF INH IH SCH ×2 (08:39→20:40)
[2022-03-12] MEDS: Potassium Chloride 40 MEQ in D5% in Water 1,000 ML IVC SCH ×2 (10:01→23:01)
[2022-03-12] MEDS: Nitroglycerin 1 INCH/GM PACKET TP SCH ×2 (10:27→21:10)
[2022-03-12] MEDS: Lactobacillus 1 EACH CAP.SPRINK PO SCH (18:27)
[2022-03-12] MEDS: polyethylene glycoL 3350 17 GM POWD.PACK PO SCH (18:28)
[2022-03-12] MEDS: *HR* Digoxin 0.125 MG TABLET PO SCH (18:28)
[2022-03-12] MEDS: Apixaban 5 MG TABLET PO SCH ×2 (18:28→21:10)
[2022-03-12] MEDS: Metoprolol XL (24 HR) Succ 50 MG TAB.ER.24H PO SCH ×2 (18:29→21:09)
[2022-03-12] MEDS: CALCITONIN NS SCH (18:29)
[2022-03-12] MEDS: (Cranberry Conc/C/Bacill Coag [Cranberry Tablet]) PO SCH (18:29)
[2022-03-12] MEDS: Cyanocobalamin (B-12) 1,000 MCG TABLET PO SCH (18:30)
[2022-03-12] MEDS: Ascorbic Acid 500 MG TABLET PO SCH (18:30)
[2022-03-12] MEDS: Cholecalciferol (D-3) 1,000 UNIT (25MCG) TABLET PO SCH (18:31)
[2022-03-12] MEDS: Vitamin E 200 UNIT (90MG) CAPSULE PO SCH (18:31)
[2022-03-12] MEDS: cefTRIAXone 2,000 MG in 0.9 % Sodium Chloride Mini Bag 100 ML IVPB SCH (21:08)
[2022-03-12] MEDS: QUEtiapine Fumarate 25 MG TABLET PO SCH (21:10)
[2022-03-12] MEDS: Mirtazapine 15 MG TABLET PO SCH (21:10)
[2022-03-13 07:10] LABS: Basophils % 0.3 %; Eosinophils # 0.1 K/mcL (0.0-0.6); Eosinophils % 0.7 %; Hematocrit 29.4 % (35.3-44.9); Immature Granulocytes % 1.4 % (0-4); Lymphocytes % 8.7 %; Mean Corpuscular HGB Conc 30.6 g/dL (31.6-35.5); Mean Corpuscular Hemoglobin 26.9 pg (28.0-33.3); Mean Corpuscular Volume 87.8 fL (83.0-100.0); Monocytes # 0.8 K/mcL (0.0-1.3); Monocytes % 6.6 %; Neutrophils # 9.7 K/mcL (1.6-8.9); Platelet Count 268 K/mcL (140-400); Red Blood Count 3.35 M/mcL (3.82-4.97); Red Cell Distribution Width 20.2 % (11.5-14.5); Segmented Neutrophils % 82.3 %; White Blood Count 11.8 K/mcL (4.3-11.1)
[2022-03-13 07:22] LABS: Calcium 7.7 mg/dL (8.6-10.3); Magnesium 1.6 mg/dL (1.6-2.6); Potassium 3.3 mEq/L (3.5-5.1)
[2022-03-13] MEDS ORDERED: Potassium Chloride Elixir 20 MEQ/15 ML UDC PO ONE ×2 (08:37→10:21)
[2022-03-13] MEDS ORDERED: Furosemide 20 MG/2 ML VIAL IVP ONE ×2 (08:38→14:15)
[2022-03-13] MEDS ORDERED: Piperacillin/Tazobactam 3.375 GM in 0.9 % Sodium Chloride Mini Bag 100 ML IVPB SCH (09:00)
[2022-03-13] MEDS: Budesonide/Formoterol 160/4.5 1 PUFF INH IH SCH ×2 (09:22→23:32)
[2022-03-13] MEDS: CALCITONIN NS SCH (11:14)
[2022-03-13] MEDS: polyethylene glycoL 3350 17 GM POWD.PACK PO SCH (11:14)
[2022-03-13] MEDS: Apixaban 5 MG TABLET PO SCH ×3 (11:14→22:30)
[2022-03-13] MEDS: Lactobacillus 1 EACH CAP.SPRINK PO SCH (11:14)
[2022-03-13] MEDS: *HR* Digoxin 0.125 MG TABLET PO SCH (11:14)
[2022-03-13] MEDS: Nitroglycerin 1 INCH/GM PACKET TP SCH ×2 (11:14→22:07)
[2022-03-13] MEDS: Cyanocobalamin (B-12) 1,000 MCG TABLET PO SCH (11:15)
[2022-03-13] MEDS: (Cranberry Conc/C/Bacill Coag [Cranberry Tablet]) PO SCH (11:15)
[2022-03-13] MEDS: Vitamin E 200 UNIT (90MG) CAPSULE PO SCH (11:15)
[2022-03-13] MEDS: Ascorbic Acid 500 MG TABLET PO SCH (11:15)
[2022-03-13] MEDS: Cholecalciferol (D-3) 1,000 UNIT (25MCG) TABLET PO SCH (11:15)
[2022-03-13] MEDS: Metoprolol XL (24 HR) Succ 50 MG TAB.ER.24H PO SCH ×3 (11:15→22:34)
[2022-03-13 12:41] LABS: Folate 14.1 ng/mL (3.0-16.0)
[2022-03-13 12:44] LABS: Vitamin B12 > 1500 pg/mL (250-1100)
[2022-03-13] MEDS: Piperacillin/Tazobactam 3.375 GM in 0.9 % Sodium Chloride Mini Bag 100 ML IVPB SCH ×2 (14:23→22:04)
[2022-03-13] MEDS ORDERED: Haloperidol Oral Conc 10 MG/5 ML UDC PO PRN (19:35)
[2022-03-13] MEDS ORDERED: Morphine Sulfate 2 MG/ML SYRINGE IVP PRN (19:35)
[2022-03-13] MEDS ORDERED: Bisacodyl 10 MG RECTAL SUPPOSITORY RC PRN (19:36)
[2022-03-13] MEDS ORDERED: Scopolamine Patch 1.5 MG PATCH.TD72 TD SCH (19:45)
[2022-03-13] MEDS: QUEtiapine Fumarate 25 MG TABLET PO SCH ×2 (22:06→22:34)
[2022-03-13] MEDS: Mirtazapine 15 MG TABLET PO SCH ×2 (22:06→22:33)
[2022-03-13 23:38] VITALS: RESP 18
[2022-03-14 07:12] VITALS: BP 150/74; PULSE 86; TEMP 98.2
[2022-03-14] MEDS: Budesonide/Formoterol 160/4.5 1 PUFF INH IH SCH (09:41)
[2022-03-14] MEDS: Apixaban 5 MG TABLET PO SCH (10:40)
[2022-03-14] MEDS: polyethylene glycoL 3350 17 GM POWD.PACK PO SCH (10:40)
[2022-03-14] MEDS: *HR* Digoxin 0.125 MG TABLET PO SCH (10:40)
[2022-03-14] MEDS: Metoprolol XL (24 HR) Succ 50 MG TAB.ER.24H PO SCH (10:40)
[2022-03-14] MEDS: Lactobacillus 1 EACH CAP.SPRINK PO SCH (10:40)
[2022-03-14] MEDS: Cyanocobalamin (B-12) 1,000 MCG TABLET PO SCH (10:40)
[2022-03-14] MEDS: Nitroglycerin 1 INCH/GM PACKET TP SCH (10:41)
[2022-03-14] MEDS: CALCITONIN NS SCH (10:42)
[2022-03-14] MEDS: (Cranberry Conc/C/Bacill Coag [Cranberry Tablet]) PO SCH (10:42)
[2022-03-14 10:53] VITALS: O2SAT 95
[2022-03-14] MEDS ORDERED: Piperacillin/Tazobactam 3.375 GM in 0.9 % Sodium Chloride Mini Bag 100 ML IVPB SCH (11:00)
[2022-03-14] MEDS: Ascorbic Acid 500 MG TABLET PO SCH (11:38)
[2022-03-14] MEDS: Cholecalciferol (D-3) 1,000 UNIT (25MCG) TABLET PO SCH (11:38)
[2022-03-14] MEDS: Vitamin E 200 UNIT (90MG) CAPSULE PO SCH (11:38)
== END 2022-03-14 13:50 | disposition hospice, inpatient (51) | DRG 689 ==
LOC: INPPIK 18:54 → EMEROOPIK 18:54 → INPPIK 03-10 10:34
PROVIDERS: ADMIT Internal Medicine; ATTEND Internal Medicine

== ENCOUNTER 2022-03-14 10:56 | Inpatient (IN) ==
[2022-03-14] MEDS ORDERED: haloperidoL 1 MG TABLET PO PRN (16:07)
[2022-03-14] MEDS ORDERED: Morphine Sulfate 2 MG/ML SYRINGE IVP PRN (16:07)
[2022-03-14] MEDS ORDERED: Atropine Sulfate 1% 40 DROP/2 ML BOTTLE SL PRN (16:07)
[2022-03-14] MEDS ORDERED: Bisacodyl 10 MG RECTAL SUPPOSITORY RC PRN (16:07)
[2022-03-14] MEDS ORDERED: Ipratropium/Albuterol Neb 3 ML IH PRN (16:07)
[2022-03-14] MEDS ORDERED: Scopolamine Patch 1.5 MG PATCH.TD72 TD SCH ×2 (16:15)
[2022-03-14] MEDS ORDERED: Piperacillin/Tazobactam 3.375 GM VIAL IVPB SCH (17:00)
[2022-03-14] MEDS: Budesonide/Formoterol 160/4.5 1 PUFF INH IH SCH (21:31)
[2022-03-14] MEDS: Apixaban 5 MG TABLET PO SCH (22:09)
[2022-03-14] MEDS: Mirtazapine 15 MG TABLET PO SCH (22:09)
[2022-03-14] MEDS: Gabapentin 100 MG CAPSULE PO SCH (22:09)
[2022-03-14] MEDS: Piperacillin/Tazobactam 3.375 GM in 0.9 % Sodium Chloride Mini Bag 100 ML IVPB SCH (22:10)
[2022-03-14] MEDS: Metoprolol XL (24 HR) Succ 50 MG TAB.ER.24H PO SCH (22:10)
[2022-03-14] MEDS: QUEtiapine Fumarate 25 MG TABLET PO SCH (22:10)
[2022-03-14] MEDS: Lactobacillus 1 EACH CAP.SPRINK PO SCH (22:10)
[2022-03-14] MEDS: Scopolamine Patch 1.5 MG PATCH.TD72 TD SCH (22:13)
[2022-03-14] MEDS: Nitroglycerin 1 INCH/GM PACKET TP SCH (22:29)
[2022-03-15] MEDS: Piperacillin/Tazobactam 3.375 GM in 0.9 % Sodium Chloride Mini Bag 100 ML IVPB SCH ×3 (05:55→21:47)
[2022-03-15] MEDS: Tiotropium 10 INH DOSE IH SCH (09:35)
[2022-03-15] MEDS: Budesonide/Formoterol 160/4.5 1 PUFF INH IH SCH ×2 (09:35→20:37)
[2022-03-15] MEDS: Gabapentin 100 MG CAPSULE PO SCH ×2 (09:42→21:47)
[2022-03-15] MEDS: Apixaban 5 MG TABLET PO SCH ×2 (09:42→21:47)
[2022-03-15] MEDS: polyethylene glycoL 3350 17 GM POWD.PACK PO SCH (09:42)
[2022-03-15] MEDS: Nitroglycerin 1 INCH/GM PACKET TP SCH ×2 (09:42→21:47)
[2022-03-15] MEDS: *HR* Digoxin 0.125 MG TABLET PO SCH (09:42)
[2022-03-15] MEDS: Lactobacillus 1 EACH CAP.SPRINK PO SCH ×2 (09:42→21:47)
[2022-03-15] MEDS: Pyridoxine (B-6) 50 MG TABLET PO SCH (09:42)
[2022-03-15] MEDS: Metoprolol XL (24 HR) Succ 50 MG TAB.ER.24H PO SCH ×2 (09:42→21:47)
[2022-03-15] MEDS: Mirtazapine 15 MG TABLET PO SCH (21:47)
[2022-03-15] MEDS: QUEtiapine Fumarate 25 MG TABLET PO SCH (21:47)
[2022-03-16] MEDS: Piperacillin/Tazobactam 3.375 GM in 0.9 % Sodium Chloride Mini Bag 100 ML IVPB SCH ×3 (05:47→21:58)
[2022-03-16 07:35] LABS: Basophils # 0.1 K/mcL (0.0-0.2); Basophils % 0.6 %; Eosinophils # 0.2 K/mcL (0.0-0.6); Hematocrit 31.8 % (35.3-44.9); Hemoglobin 9.6 g/dL (11.5-15.4); Immature Granulocytes % 0.5 % (0-4); Lymphocytes # 0.7 K/mcL (0.6-4.6); Lymphocytes % 6.5 %; Mean Corpuscular HGB Conc 30.2 g/dL (31.6-35.5); Mean Corpuscular Hemoglobin 26.7 pg (28.0-33.3); Mean Corpuscular Volume 88.3 fL (83.0-100.0); Mean Platelet Volume 11.1 fL (9.4-12.4); Monocytes # 0.8 K/mcL (0.0-1.3); Monocytes % 7.2 %; Neutrophils # 8.8 K/mcL (1.6-8.9); Platelet Count 202 K/mcL (140-400); Red Cell Distribution Width 19.9 % (11.5-14.5); Segmented Neutrophils % 83.2 %; White Blood Count 10.6 K/mcL (4.3-11.1)
[2022-03-16 08:13] LABS: Potassium 3.2 mEq/L (3.5-5.1)
[2022-03-16] MEDS: Budesonide/Formoterol 160/4.5 1 PUFF INH IH SCH ×2 (08:31→21:09)
[2022-03-16] MEDS: Tiotropium 10 INH DOSE IH SCH (08:31)
[2022-03-16] MEDS: Pyridoxine (B-6) 50 MG TABLET PO SCH (08:58)
[2022-03-16] MEDS: Lactobacillus 1 EACH CAP.SPRINK PO SCH ×2 (08:58→21:58)
[2022-03-16] MEDS: Apixaban 5 MG TABLET PO SCH ×2 (08:58→21:58)
[2022-03-16] MEDS: polyethylene glycoL 3350 17 GM POWD.PACK PO SCH (08:58)
[2022-03-16] MEDS: *HR* Digoxin 0.125 MG TABLET PO SCH (08:59)
[2022-03-16] MEDS: Nitroglycerin 1 INCH/GM PACKET TP SCH ×2 (08:59→21:58)
[2022-03-16] MEDS: Metoprolol XL (24 HR) Succ 50 MG TAB.ER.24H PO SCH ×2 (08:59→21:58)
[2022-03-16] MEDS: Gabapentin 100 MG CAPSULE PO SCH ×2 (08:59→21:58)
[2022-03-16] MEDS ORDERED: Potassium Chloride Elixir 20 MEQ/15 ML UDC PO ONE (10:02)
[2022-03-16] MEDS: Furosemide 20 MG/2 ML VIAL IVP ONE (12:15)
[2022-03-16] MEDS: Mirtazapine 15 MG TABLET PO SCH (21:58)
[2022-03-16] MEDS: QUEtiapine Fumarate 25 MG TABLET PO SCH (21:58)
[2022-03-17] MEDS: Piperacillin/Tazobactam 3.375 GM in 0.9 % Sodium Chloride Mini Bag 100 ML IVPB SCH ×3 (05:11→22:25)
[2022-03-17] MEDS: Tiotropium 10 INH DOSE IH SCH (08:24)
[2022-03-17] MEDS: Budesonide/Formoterol 160/4.5 1 PUFF INH IH SCH ×2 (08:24→19:57)
[2022-03-17] MEDS: *HR* Digoxin 0.125 MG TABLET PO SCH (08:47)
[2022-03-17] MEDS: Apixaban 5 MG TABLET PO SCH ×2 (08:47→22:26)
[2022-03-17] MEDS: Pyridoxine (B-6) 50 MG TABLET PO SCH (08:47)
[2022-03-17] MEDS: polyethylene glycoL 3350 17 GM POWD.PACK PO SCH (08:48)
[2022-03-17] MEDS: Gabapentin 100 MG CAPSULE PO SCH ×2 (08:48→22:26)
[2022-03-17] MEDS: Lactobacillus 1 EACH CAP.SPRINK PO SCH ×2 (08:48→22:26)
[2022-03-17] MEDS: Nitroglycerin 1 INCH/GM PACKET TP SCH ×2 (08:48→22:26)
[2022-03-17] MEDS: Metoprolol XL (24 HR) Succ 50 MG TAB.ER.24H PO SCH ×2 (08:48→22:26)
[2022-03-17] MEDS: Furosemide 20 MG/2 ML VIAL IVP ONE (12:25)
[2022-03-17] MEDS ORDERED: *HR* Labetalol 20 MG/4 ML SYRINGE IVP ONE (12:38)
[2022-03-17] MEDS ORDERED: Furosemide 20 MG/2 ML VIAL IVP ONE (13:00)
[2022-03-17] MEDS: Scopolamine Patch 1.5 MG PATCH.TD72 TD SCH (22:25)
[2022-03-17] MEDS: QUEtiapine Fumarate 25 MG TABLET PO SCH (22:26)
[2022-03-17] MEDS: Mirtazapine 15 MG TABLET PO SCH (22:26)
[2022-03-18 07:10] LABS: Basophils % 0.4 %; Eosinophils # 0.1 K/mcL (0.0-0.6); Eosinophils % 1.5 %; Hematocrit 30.3 % (35.3-44.9); Hemoglobin 9.3 g/dL (11.5-15.4); Immature Granulocytes % 0.5 % (0-4); Lymphocytes # 1.1 K/mcL (0.6-4.6); Lymphocytes % 11.9 %; Mean Corpuscular HGB Conc 30.7 g/dL (31.6-35.5); Mean Corpuscular Volume 87.8 fL (83.0-100.0); Mean Platelet Volume 11.8 fL (9.4-12.4); Monocytes # 0.9 K/mcL (0.0-1.3); Monocytes % 9.2 %; Neutrophils # 7.3 K/mcL (1.6-8.9); Platelet Count 192 K/mcL (140-400); Red Blood Count 3.45 M/mcL (3.82-4.97); Red Cell Distribution Width 19.8 % (11.5-14.5); Segmented Neutrophils % 76.5 %; White Blood Count 9.5 K/mcL (4.3-11.1)
[2022-03-18] MEDS: *HR* Digoxin 0.125 MG TABLET PO SCH (08:00)
[2022-03-18] MEDS: *HR* HYDROcodone/Acet 5/325 mg TABLET PO PRN ×2 (08:01→18:07)
[2022-03-18] MEDS: Apixaban 5 MG TABLET PO SCH (08:01)
[2022-03-18] MEDS: Gabapentin 100 MG CAPSULE PO SCH (08:01)
[2022-03-18] MEDS: Metoprolol XL (24 HR) Succ 50 MG TAB.ER.24H PO SCH (08:01)
[2022-03-18] MEDS: Nitroglycerin 1 INCH/GM PACKET TP SCH (08:02)
[2022-03-18] MEDS: Pyridoxine (B-6) 50 MG TABLET PO SCH (08:02)
[2022-03-18] MEDS: polyethylene glycoL 3350 17 GM POWD.PACK PO SCH (08:02)
[2022-03-18 08:05] LABS: Calcium 8.6 mg/dL (8.6-10.3); Magnesium 1.4 mg/dL (1.6-2.6); Potassium 3.5 mEq/L (3.5-5.1)
[2022-03-18] MEDS: Lactobacillus 1 EACH CAP.SPRINK PO SCH (08:17)
[2022-03-18] MEDS: Tiotropium 10 INH DOSE IH SCH (10:07)
[2022-03-18] MEDS: Budesonide/Formoterol 160/4.5 1 PUFF INH IH SCH ×2 (10:07→22:34)
[2022-03-18] MEDS ORDERED: Moderna Covid-19 Vaccine 100MCG/0.5mL IM ONE (12:25)
[2022-03-18 15:03] VITALS: BP 165/61; PULSE 81; RESP 18; TEMP 97.6; O2SAT 99
[2022-03-18 17:26] LABS: Influenza A PCR Negative (Negative); Influenza B PCR Negative (Negative); Resp. Syncytial Virus PCR Negative (Negative)
[2022-03-18 17:31] LABS: SARS-CoV-2 by PCR (In House) Negative (Negative)
== END 2022-03-18 20:30 | disposition hospice, inpatient (51) | DRG 640 ==
LOC: INPPIK 12:17
PROVIDERS: ADMIT Internal Medicine Hospice and Palliative Medicine; ATTEND Internal Medicine